=== PATIENT | male | born 1970 | race American Indian/Alaskan Native ===

== ENCOUNTER 2020-06-26 09:45 | Inpatient (IN) | payer OTHER ==
--- NOTE | 2020-06-26 10:20 | XRay Report ---
CHEST 2 VIEWS INDICATION / CLINICAL INFORMATION: SOB. COMPARISON: None available. FINDINGS: SUPPORT DEVICES: None. HEART / MEDIASTINUM: Mildly enlarged with normal pulmonary vascularity. LUNGS / PLEURA: No significant pulmonary or pleural abnormality. No pneumothorax. ADDITIONAL FINDINGS: No significant additional findings. IMPRESSION: 1. Cardiomegaly without CHF Signer Name: Grayson Quevedo MD Signed: 06/26/2020 10:15 AM Workstation Name: [id number]
[2020-06-26 12:05] LABS: Basophils % (Auto) 0.7 % (0.0-1.8); Eosinophils % (Auto) 0.3 % (0.0-4.3); Hematocrit 35.9 % (35.5-45.6); Hemoglobin 12.2 gm/dl (11.8-15.2); Lymphocytes % (Auto) 20.9 % (13.4-35.0); Mean Corpuscular HGB Conc 34 % (32-34); Mean Corpuscular Volume 86 fl (84-94); Monocytes # (Auto) 0.3 K/mm3 (0.0-0.8); Platelet Count 146 K/mm3 (140-440); Red Cell Distribution Width 14.1 % (13.2-15.2)
[2020-06-26 12:25] LABS: Albumin 3.9 g/dL (3.9-5)
[2020-06-26 12:37] LABS: Chol/HDL Ratio 2.36 %
--- NOTE | 2020-06-26 13:07 | Emergency Department Report ---
ED Shortness of Breath HPI - General Chief Complaint: Dyspnea/Respdistress Stated Complaint: SOB/UNABLE TO SLEEP Time Seen by Provider: 06/26/20 11:02 Source: patient Mode of arrival: Ambulatory Limitations: No Limitations - History of Present Illness Initial Comments: Patient is a 49-year-old male presents emergency room complaints of shortness of breath that significantly worsened last night. Patient states that when he laid down he felt like he was going to . He states that he has been feeling shortness of breath over the last couple of months but it became acutely worse last night. He has associated orthopnea. Patient states that he has not been able to sleep for the last 2 months secondary to the orthopnea. He denies any chest pain, nausea, vomiting, diarrhea, fever, cough, leg swelling. He states that he tested negative for COVID last week. He is a current smoker. He endorses alcohol use every other day. He denies any past medical history. He states he has not seen a primary care physician since 2010. He states that he has not had his blood pressure checked since approximately 2015. No allergies to medications. - Related Data Allergies Allergy/AdvReac Type Severity Reaction Status Date / Time No Known Allergies Allergy Unverified 06/26/20 09:55 ED Review of Systems ROS: Stated complaint: SOB/UNABLE TO SLEEP Other details as noted in HPI Comment: All other systems reviewed and negative ED Past Medical Hx - Past Medical History Previous Medical History?: No - Surgical History Past Surgical History?: No - Social History Smoking Status: Current Every Day Smoker ED Physical Exam - General Limitations: No Limitations General appearance: alert, in no apparent distress - Head Head exam: Present: atraumatic, normocephalic - Eye Eye exam: Present: normal appearance - ENT ENT exam: Present: mucous membranes moist - Respiratory Respiratory exam: Present: normal lung sounds bilaterally. Absent: respiratory distress, wheezes, rales, rhonchi, stridor, chest wall tenderness, accessory muscle use, decreased breath sounds, prolonged expiratory - Cardiovascular Cardiovascular Exam: Present: normal rhythm, tachycardia, normal heart sounds. Absent: systolic murmur, diastolic murmur, rubs, gallop - Neurological Exam Neurological exam: Present: alert, oriented X3 - Psychiatric Psychiatric exam: Present: normal affect, normal mood - Skin Skin exam: Present: warm, dry, intact ED Course Vital Signs 06/26/20 06/26/20 06/26/20 09:56 11:16 12:03 Temperature 97.5 F L Pulse Rate 104 H 108 H 83 Respiratory 18 16 Rate Blood Pressure 204/148 204/148 Blood Pressure 137/98 [Right] O2 Sat by Pulse 97 97 Oximetry - Consultations Consultation #1: 06/26/20 13:11 Spoke with hospitalist, she will call back 06/26/20 13:[address] Cary, hospitalist will accept and resume care of patient, advised to bridge patient to telemetry ED Medical Decision Making - Lab Data Result diagrams: 06/26/20 11:22 06/26/20 11:22 Lab Results 06/26/20 06/26/20 06/26/20 Range/Units 11:22 11:22 11:22 WBC 4.6 (4.5-11.0) K/mm3 RBC 4.20 (3.65-5.03) M/mm3 Hgb 12.2 (11.8-15.2) gm/dl Hct 35.9 (35.5-45.6) % MCV 86 (84-94) fl MCH 29 (28-32) pg MCHC 34 (32-34) % RDW 14.1 (13.2-15.2) % Plt Count 146 (140-440) K/mm3 Lymph % (Auto) 20.9 (13.4-35.0) % Graves % (Auto) 6.0 (0.0-7.3) % Eos % (Auto) 0.3 (0.0-4.3) % Baso % (Auto) 0.7 (0.0-1.8) % Lymph # 1.0 L (1.2-5.4) K/mm3 Graves # 0.3 (0.0-0.8) K/mm3 Eos # 0.0 (0.0-0.4) K/mm3 Baso # 0.0 (0.0-0.1) K/mm3 Seg Neutrophils % 72.1 H (40.0-70.0) % Seg Neutrophils # 3.3 (1.8-7.7) K/mm3 Sodium 142 (137-145) mmol/L Potassium 4.1 (3.6-5.0) mmol/L Chloride 101.5 (98-107) mmol/L Carbon Dioxide 25 (22-30) mmol/L Anion Gap 20 mmol/L BUN 24 H (9-20) mg/dL Creatinine 2.3 H (0.8-1.3) mg/dL Estimated GFR 37 ml/min BUN/Creatinine Ratio 10 % Glucose 105 H (75-100) mg/dL Calcium 9.0 (8.4-10.2) mg/dL Magnesium 2.30 (1.7-2.3) mg/dL Total Bilirubin 0.70 (0.1-1.2) mg/dL AST 41 H (5-40) units/L ALT 58 H (7-56) units/L Alkaline Phosphatase 73 (35-129) units/L Total Creatine Kinase 195 H (55-170) units/L Troponin T 0.035 H (0.00-0.029) ng/mL NT-Pro-B Natriuret Pep 7493 H (0-450) pg/mL Total Protein 6.5 (6.3-8.2) g/dL Albumin 3.9 (3.9-5) g/dL Albumin/Globulin Ratio 1.5 % Triglycerides 88 (2-149) mg/dL Cholesterol 90 (50-199) mg/dL LDL Cholesterol Direct 44 L (50-130) mg/dL HDL Cholesterol 38 L (40-59) mg/dL Cholesterol/HDL Ratio 2.36 % 08/29/20 Range/Units 13:31 WBC (4.5-11.0) K/mm3 RBC (3.65-5.03) M/mm3 Hgb (11.8-15.2) gm/dl Hct (35.5-45.6) % MCV (84-94) fl MCH (28-32) pg MCHC (32-34) % RDW (13.2-15.2) % Plt Count (140-440) K/mm3 Lymph % (Auto) (13.4-35.0) % Graves % (Auto) (0.0-7.3) % Eos % (Auto) (0.0-4.3) % Baso % (Auto) (0.0-1.8) % Lymph # (1.2-5.4) K/mm3 Graves # (0.0-0.8) K/mm3 Eos # (0.0-0.4) K/mm3 Baso # (0.0-0.1) K/mm3 Seg Neutrophils % (40.0-70.0) % Seg Neutrophils # (1.8-7.7) K/mm3 Sodium (137-145) mmol/L Potassium (3.6-5.0) mmol/L Chloride (98-107) mmol/L Carbon Dioxide (22-30) mmol/L Anion Gap mmol/L BUN (9-20) mg/dL Creatinine (0.8-1.3) mg/dL Estimated GFR ml/min BUN/Creatinine Ratio % Glucose (75-100) mg/dL Calcium (8.4-10.2) mg/dL Magnesium (1.7-2.3) mg/dL Total Bilirubin (0.1-1.2) mg/dL AST (5-40) units/L ALT (7-56) units/L Alkaline Phosphatase (35-129) units/L Total Creatine Kinase (55-170) units/L Troponin T 0.035 H (0.00-0.029) ng/mL NT-Pro-B Natriuret Pep (0-450) pg/mL Total Protein (6.3-8.2) g/dL Albumin (3.9-5) g/dL Albumin/Globulin Ratio % Triglycerides (2-149) mg/dL Cholesterol (50-199) mg/dL LDL Cholesterol Direct (50-130) mg/dL HDL Cholesterol (40-59) mg/dL Cholesterol/HDL Ratio % - EKG Data EKG shows normal: sinus rhythm, axis, intervals Rate: tachycardia - EKG Data 06/26/20 13:09 LAE LVH no STEMI - Radiology Data Radiology results: report reviewed CHEST 2 VIEWS INDICATION / CLINICAL INFORMATION: SOB. COMPARISON: None available. FINDINGS: SUPPORT DEVICES: None. HEART / MEDIASTINUM: Mildly enlarged with normal pulmonary vascularity. LUNGS / PLEURA: No significant pulmonary or pleural abnormality. No pneumothorax. ADDITIONAL FINDINGS: No significant additional findings. IMPRESSION: 1. Cardiomegaly without CHF Signer Name: Grayson Quevedo MD Signed: 06/26/2020 10:15 AM Workstation Name: [id number] Transcribed By: TL Dictated By: Grayson Quevedo MD Electronically Authenticated By: Grayson Quevedo MD Signed Date/Time: 06/26/20 101 DD/ 1015 TD/TT: - Medical Decision Making Patient is a 49-year-old male presents emergency room complaints of shortness of breath that significantly worsened last night. Patient states that when he laid down he felt like he was going to . He states that he has been feeling shortness of breath over the last couple of months but it became acutely worse last night. He has associated orthopnea. Patient states that he has not been able to sleep for the last 2 months secondary to the orthopnea. He denies any chest pain, nausea, vomiting, diarrhea, fever, cough, leg swelling. He states that he tested negative for COVID last week. He is a current smoker. He endorses alcohol use every other day. He denies any past medical history. He states he has not seen a primary care physician since 2010. He states that he has not had his blood pressure checked since approximately 2015. No allergies to medications. Vitals with tachycardia and significantly elevated blood pressure. Patient given labetalol and blood pressure improved. EKG shows LVH, no STEMI. CXR: 1. Cardiomegaly without CHF. Labs show signs of renal disease, elevated BNP, elevated troponin. Difficult to state if renal function is chronic as patient has no previous visits, could be BECCA on CKD. Elevation in troponin likely due to NSTEMI type II from demand likely secondary to heart failure and renal disease. Patient will be admitted to hospitalist service for BECCA, new onset CHF, hypertensive urgency. Case discussed with Dr. Olivier, ER attending who agrees with plan. Spoke to Dr. Cary, hospitalist will accept and resume care of patient, advised to bridge patient to telemetry - Differential Diagnosis ACS, CHF, pleural effusion, pericarditis, renal dysfunction, HTN urgency Critical care attestation.: If time is entered above; I have spent that time in minutes in the direct care of this critically ill patient, excluding procedure time. ED Disposition Clinical Impression: SOB (shortness of breath), Orthopnea, Hypertensive urgency, BECCA (acute kidney injury), New onset of congestive heart failure, Elevated troponin Disposition: OP ADMIT IP TO THIS HOSP Is pt being admited?: Yes Does the pt Need Aspirin: No Condition: Serious Time of Disposition: 13:07
[2020-06-26] MEDS ORDERED: NITROGLYCERIN 0.4 MG TAB SUBL SL PRN (14:04)
--- NOTE | 2020-06-26 14:15 | History and Physical Report ---
History of Present Illness Date of examination: 06/26/20 Date of admission: 06/26/20 Chief complaint: SOB History of present illness: Patient is a 49-year-old male with a history of hypertension but not on any home medications, tobacco and alcohol abuse and no other prior medical history presents emergency room complaints of Progressive shortness of breath for last 2 months that significantly worsened since last night. Patient states that when he laid down he felt like he was going to . He has associated orthopnea. Patient states that he has not been able to sleep for the last 2 months secondary to the orthopnea. He denies any chest pain, nausea, vomiting, diarrhea, fever, cough, leg swelling. He states that he tested negative for COVID last week Sunday. He states he has not seen a primary care physician since 2010. In the ER patient blood pressure noted to be 204/148. He also noted to have elevated BNP, elevated troponin and elevated creatinine. He was given p.o. labetalol 200 mg one-time dose, chest x-ray in the ER showed cardiomegaly without any pulmonary edema. Patient now called for admission for further evaluation and management - Past Medical History: Uncontrolled hypertension - Surgical History Past Surgical History?: No - Social History Smoking Status: Current Every Day Smoker. Patient also endorses alcohol abuse every other day, he also takes marijuana frequently. -family history: Hypertension Review of System: Constitutional: no fever, no chills, no weight loss Ears, eyes, nose, mouth and throat: no nasal congestion, no nasal discharge, no sinus pressure, no vision change, no red eye. Neck: No neck pain or rigidity. Cardiovascular: No chest pain, + orthopnea, no palpitations, no leg swelling Respiratory: + shortness of breath, no cough, no congestion, no wheezing Gastrointestinal: no abdominal pain, no nausea, no vomiting Genitourinary : no dysuria, no hematuria Musculoskeletal: no joint swelling or muscle ache Integumentary: no rash, no pruritis Neurological: no parathesias, no numbness, no tingling Endocrine: no cold or heat intolerance, no polyuria or polydipsia Hematologic/Lymphatic: no easy bruising, no easy bleeding, no gland swelling Allergic/Immunologic: no urticaria, no angioedema. Medications and Allergies Allergies Allergy/AdvReac Type Severity Reaction Status Date / Time No Known Allergies Allergy Unverified 08/29/20 09:55 Home Medications Medication Instructions Recorded Confirmed Last Taken Type No Known Home Medications [No 06/26/20 06/26/20 Unknown History Reported Home Medications] Active Meds: Active Medications Aspirin (Aspirin) 325 mg PO QDAY [facility] Carvedilol (Coreg) 6.25 mg PO BID [facility] Furosemide (Lasix) 40 mg IV 0600,1800 [facility] Heparin Sodium (Porcine) (Heparin) 5,000 unit SUB-Q Q12HR [facility] Nitroglycerin (Nitrostat) 0.4 mg SL .Q5MIN PRN PRN Reason: Chest Pain Exam - Physical Exam Narrative exam: - General Limitations: No Limitations General appearance: alert, in no apparent distress - Head Head exam: Present: atraumatic, normocephalic - Eye Eye exam: Present: normal appearance - ENT ENT exam: Present: mucous membranes moist - Respiratory Respiratory exam: Present: normal lung sounds bilaterally. Absent: respiratory distress, wheezes, rales, rhonchi, stridor, chest wall tenderness, accessory muscle use, decreased breath sounds, prolonged expiratory - Cardiovascular Cardiovascular Exam: Present: normal rhythm, tachycardia, normal heart sounds. Absent: systolic murmur, diastolic murmur, rubs, gallop - Neurological Exam Neurological exam: Present: alert, oriented X3 - Psychiatric Psychiatric exam: Present: normal affect, normal mood - Skin Skin exam: Present: warm, dry, intact - Constitutional Vitals: Temp Pulse Resp BP Pulse Ox 97.5 F L 83 16 137/98 97 06/26/20 09:56 06/26/20 12:03 06/26/20 12:03 06/26/20 12:03 06/26/20 12:03 HEART Score - HEART Score Troponin: Troponin T 0.035 ng/mL (0.00-0.029) H 06/26/20 11:22 Results - Labs CBC & Chem 7: 06/26/20 11:22 06/26/20 11:22 Labs: Abnormal lab results 06/26/20 06/26/20 06/26/20 Range/Units 11:22 11:22 11:22 Lymph # 1.0 L (1.2-5.4) K/mm3 Seg Neutrophils % 72.1 H (40.0-70.0) % BUN 24 H (9-20) mg/dL Creatinine 2.3 H (0.8-1.3) mg/dL Glucose 105 H (75-100) mg/dL AST 41 H (5-40) units/L ALT 58 H (7-56) units/L Total Creatine Kinase 195 H (55-170) units/L Troponin T 0.035 H (0.00-0.029) ng/mL NT-Pro-B Natriuret Pep 7493 H (0-450) pg/mL LDL Cholesterol Direct 44 L (50-130) mg/dL HDL Cholesterol 38 L (40-59) mg/dL - Imaging and Cardiology Chest x-ray: report reviewed Assessment and Plan Malignant hypertension -BP was 204 x 148 on admission -We will place on beta-francie, calcium channel francie and diuretics -We will also give as needed IV hydralazine to keep SBP less than 160 Possible new onset CHF -Patient noted to have elevated BNP and cardiomegaly on chest x-ray -We will continue Lasix 20 mg IV twice a day -We will monitor ins and O's, daily weight -Obtain 2D echo, cardiology consult Noncompliance, counseled for medication and dietary compliance Tobacco abuse, counseled to quit BECCA, cannot rule out underlying CKD -Baseline creatinine is unknown, -We will monitor renal function with daily BMP -We will get renal ultrasound, consider consulting nephrology if creatinine continue to get worse Elevated troponin/NSTEMI type II -Likely due to CHF exacerbation and underlying BECCA on CKD -Continue to monitor troponin, consult cardiology, continue aspirin and statin -Obtain 2D echo Elevated LFT, likely due to hepatic congestion -We will continue to monitor DVT prophylaxis, heparin
[2020-06-26] MEDS: FUROSEMIDE 20 MG/2 ML INJ IV SCH (17:13)
[2020-06-26] MEDS ORDERED: FUROSEMIDE 40 MG/4 ML INJ IV SCH (18:00)
--- NOTE | 2020-06-26 18:47 | Ultrasound Report ---
ULTRASOUND RENAL INDICATION / CLINICAL INFORMATION: possible ckd. COMPARISON: None available. FINDINGS: RIGHT KIDNEY: Length = 10.1 x 4.6 x 5.0 cm. - Echogenicity: Minimally hyperechoic with loss of cortical medullary differentiation. - Cortical Thickness: Normal. - Hydronephrosis: None. - Cyst or mass: No significant abnormality. - Stones: None seen. LEFT KIDNEY: Length = 8.9 x 4.5 x 5.2 cm. - Echogenicity: Minimally hyperechoic with loss of cortical medullary differentiation. - Cortical Thickness: Normal. - Hydronephrosis: None. - Cyst or mass: No significant abnormality. - Stones: None seen. URINARY BLADDER: No significant abnormality. FREE FLUID: None. ADDITIONAL FINDINGS: Bilateral pleural effusions are appreciated. IMPRESSION: 1. Findings consistent with medical renal disease. 2. No evidence of calcified stones or hydronephrosis. 3. Bilateral pleural effusions. Signer Name: Elmo Cisneros MD Signed: 06/26/2020 6:42 PM Workstation Name: [id number]
[2020-06-26] MEDS: carvediloL 6.25 MG TAB PO SCH (21:16)
[2020-06-26] MEDS: amLODIPine 10 MG TAB PO SCH (21:16)
[2020-06-26] MEDS: HEPARIN 5,000 UNIT/1 ML VIAL SUB-Q SCH (21:18)
[2020-06-27] MEDS ORDERED: cloNIDine 0.1 MG TAB PO ONE (00:20)
[2020-06-27] MEDS: FUROSEMIDE 20 MG/2 ML INJ IV SCH (05:28)
[2020-06-27 07:01] LABS: Alanine Aminotransferase 54 units/L (7-56); Albumin 3.5 g/dL (3.9-5); BUN/Creatinine Ratio 10; Blood Urea Nitrogen 24 mg/dL (9-20); Calcium 8.3 mg/dL (8.4-10.2); Hemolysis Index 4
[2020-06-27 07:02] LABS: Bilirubin,Direct < 0.2 mg/dL (0-0.2)
[2020-06-27] MEDS: carvediloL 6.25 MG TAB PO SCH ×2 (10:15→21:10)
[2020-06-27] MEDS: ASPIRIN 325 MG TAB PO SCH (10:15)
[2020-06-27] MEDS: amLODIPine 10 MG TAB PO SCH (10:16)
[2020-06-27] MEDS: HEPARIN 5,000 UNIT/1 ML VIAL SUB-Q SCH ×2 (10:16→21:11)
--- NOTE | 2020-06-27 11:11 | Consultation ---
History of Present Illness Consult date: 06/27/20 Consult reason: congestive heart failure History of present illness: Impression Acute symptoms suggestive of CHF, primarily Dyspnea, Orthopnea, both now improved. Echocardiogram pending to exclude CMP History of uncontrolled HTN and noncompliance with medications due to their side effects (such as ED) Active smoker Active ETOH use. Plan He looks well after IV diuretics, Transition to PO meds Optimize BP Echo in AM Ischemic w/u as outpt, dyspnea likely HTN related Smoking and ETOH cessation would help Past History Past Medical History: hypertension Past Surgical History: No surgical history Social history: smoking, alcohol abuse Family history: hypertension Medications and Allergies Allergies Allergy/AdvReac Type Severity Reaction Status Date / Time No Known Allergies Allergy Unverified 06/26/20 09:55 Home Medications Medication Instructions Recorded Confirmed Last Taken Type No Known Home Medications [No 06/26/20 06/26/20 Unknown History Reported Home Medications] Active Meds: Active Medications Amlodipine Besylate (Amlodipine) 10 mg PO QDAY [facility] Last Admin: 06/27/20 10:16 Dose: 10 mg Documented by: Aspirin (Aspirin) 325 mg PO QDAY [facility] Last Admin: 06/27/20 10:15 Dose: 325 mg Documented by: Atorvastatin Calcium (Lipitor) 40 mg PO QHS [facility] Last Admin: 06/26/20 21:16 Dose: 40 mg Documented by: Carvedilol (Coreg) 6.25 mg PO BID [facility] Last Admin: 06/27/20 10:15 Dose: 6.25 mg Documented by: Furosemide (Lasix) 40 mg PO 0600,1800 [facility] Heparin Sodium (Porcine) (Heparin) 5,000 unit SUB-Q Q12HR [facility] Last Admin: 06/27/20 10:16 Dose: 5,000 unit Documented by: Isosorbide Dinitrate/Hydralazine (Bidil 20/37.5mg) 1 each PO Q12HR [facility] Nitroglycerin (Nitrostat) 0.4 mg SL .Q5MIN PRN PRN Reason: Chest Pain Potassium Chloride (K-Dur) 40 meq PO Q12HR [facility] Stop: 06/28/20 22:01 Review of Systems All systems: negative (stated in impression) Physical Examination Vital Signs Temp Pulse Resp BP Pulse Ox 97.5 F L 104 H 18 204/148 97 06/26/20 09:56 06/26/20 09:56 06/26/20 09:56 06/26/20 09:56 06/26/20 09:56 General appearance: no acute distress HEENT: Positive: PERRL Neck: Positive: neck supple Cardiac: Positive: Reg Rate and Rhythm, S1/S2, S4 Lungs: Positive: Normal Exam Neuro: Positive: Grossly Intact Abdomen: Positive: Soft. Negative: Pulsations/Bruits Extremities: Absent: edema Results 06/26/20 11:22 06/27/20 05:39 Cardiac Enzymes 06/26/20 06/27/20 Range/Units 11:22 05:39 AST 41 H 32 (5-40) units/L Lipids 06/26/20 Range/Units 11:22 Triglycerides 88 (2-149) mg/dL Cholesterol 90 (50-199) mg/dL HDL Cholesterol 38 L (40-59) mg/dL Cholesterol/HDL Ratio 2.36 % CBC 06/26/20 Range/Units 11:22 WBC 4.6 (4.5-11.0) K/mm3 RBC 4.20 (3.65-5.03) M/mm3 Hgb 12.2 (11.8-15.2) gm/dl Hct 35.9 (35.5-45.6) % Plt Count 146 (140-440) K/mm3 Lymph # 1.0 L (1.2-5.4) K/mm3 Lipscomb # 0.3 (0.0-0.8) K/mm3 Eos # 0.0 (0.0-0.4) K/mm3 Baso # 0.0 (0.0-0.1) K/mm3 Comprehensive Metabolic Panel 06/26/20 06/27/20 Range/Units 11:22 05:39 Sodium 142 141 (137-145) mmol/L Potassium 4.1 3.2 L D (3.6-5.0) mmol/L Chloride 101.5 98.6 (98-107) mmol/L Carbon Dioxide 25 28 (22-30) mmol/L BUN 24 H 24 H (9-20) mg/dL Creatinine 2.3 H 2.4 H (0.8-1.3) mg/dL Glucose 105 H 149 H (75-100) mg/dL Calcium 9.0 8.3 L (8.4-10.2) mg/dL Direct Bilirubin < 0.2 (0-0.2) mg/dL Indirect Bilirubin 0.3 mg/dL AST 41 H 32 (5-40) units/L ALT 58 H 54 (7-56) units/L Alkaline Phosphatase 73 66 (35-129) units/L Total Protein 6.5 6.5 (6.3-8.2) g/dL Albumin 3.9 3.5 L (3.9-5) g/dL
[2020-06-27] MEDS: ISOSORB DINIT/HYDRALAZINE 20-37.5MG TAB PO SCH ×2 (12:28→21:09)
[2020-06-27] MEDS: POTASSIUM CHLORIDE ER 20 MEQ TAB PO SCH ×2 (12:28→21:09)
[2020-06-27] MEDS: FUROSEMIDE 40 MG TAB PO SCH (17:29)
--- NOTE | 2020-06-27 18:02 | Progress Note ---
Assessment and Plan - Patient Problems (1) New onset of congestive heart failure Current Visit: Yes Status: Acute Plan to address problem: Systolic CHF: Strict I's/O, monitor urine output every shift, daily weight, afterload reduction, echocardiogram is pending. (2) Noncompliance with medication regimen Current Visit: Yes Status: Acute Plan to address problem: Patient counseled regarding medication noncompliance. Patient knowledges understanding and agreement with care plan. Patient states that he will be compliant with his medication regimen in the future. Patient also reports that he will comply and follow-up with primary care physician on outpatient basis. (3) BECCA (acute kidney injury) Current Visit: Yes Status: Acute Plan to address problem: Strict I's/O, monitor urine output every shift, follow-up PCP within 1 week with repeat BMP. (4) Hypertensive urgency Current Visit: Yes Status: Acute Plan to address problem: Monitor blood pressure every shift, continue medical management. (5) DVT prophylaxis Current Visit: Yes Status: Acute Plan to address problem: SCD to bilateral lower extremities while in bed, patient is ambulatory. History Interval history: 49 YO Male HD #2 with CHF, Medication Noncompliance, Nicotine Dependence, ETOH Dependence. Patient states that he feels somewhat better today. Patient denies fever, chills, chest pain, palpitations, productive cough. Patient states that his shortness of breath is improved. No reported nursing events overnight. Patient is pending echocardiogram in a.m. Discharge planning in a.m. Hospitalist Physical - Constitutional Vitals: Temp Pulse Resp BP Pulse Ox 98.3 F 82 20 157/113 97 06/27/20 16:06 06/27/20 16:06 06/27/20 16:06 06/27/20 16:06 06/27/20 16:06 General appearance: Present: no acute distress - EENT Eyes: Present: PERRL, EOM intact - Neck Neck: Present: supple - Respiratory Respiratory: bilateral: CTA - Cardiovascular Rhythm: regular Heart Sounds: Present: S1 & S2 - Extremities Extremities: no ischemia Peripheral Pulses: within normal limits - Abdominal General gastrointestinal: soft, non-tender, non-distended - Integumentary Integumentary: Present: clear, dry - Psychiatric Psychiatric: appropriate mood/affect, cooperative - Neurologic Neurologic: CNII-XII intact HEART Score - HEART Score Troponin: Troponin T 0.043 ng/mL (0.00-0.029) H 06/27/20 05:39 Results - Labs CBC & Chem 7: 06/26/20 11:22 06/27/20 05:39 Labs: Laboratory Last Values WBC 4.6 K/mm3 (4.5-11.0) 06/26/20 11:22 RBC 4.20 M/mm3 (3.65-5.03) 06/26/20 11:22 Hgb 12.2 gm/dl (11.8-15.2) 06/26/20 11:22 Hct 35.9 % (35.5-45.6) 06/26/20 11:22 MCV 86 fl (84-94) 06/26/20 11:22 MCH 29 pg (28-32) 06/26/20 11:22 MCHC 34 % (32-34) 06/26/20 11:22 RDW 14.1 % (13.2-15.2) 06/26/20 11:22 Plt Count 146 K/mm3 (140-440) 06/26/20 11:22 Lymph % (Auto) 20.9 % (13.4-35.0) 06/26/20 11:22 [place] % (Auto) 6.0 % (0.0-7.3) 06/26/20 11:22 Eos % (Auto) 0.3 % (0.0-4.3) 06/26/20 11:22 Baso % (Auto) 0.7 % (0.0-1.8) 06/26/20 11:22 Lymph # 1.0 K/mm3 (1.2-5.4) L 06/26/20 11:22 [place]ook[place] # 0.3 K/mm3 (0.0-0.8) 06/26/20 11:22 Eos # 0.0 K/mm3 (0.0-0.4) 06/26/20 11:22 Baso # 0.0 K/mm3 (0.0-0.1) 06/26/20 11:22 Seg Neutrophils % 72.1 % (40.0-70.0) H 06/26/20 11:22 Seg Neutrophils # 3.3 K/mm3 (1.8-7.7) 06/26/20 11:22 Sodium 141 mmol/L (137-145) 06/27/20 05:39 Potassium 3.2 mmol/L (3.6-5.0) L D 06/27/20 05:39 Chloride 98.6 mmol/L (98-107) 06/27/20 05:39 Carbon Dioxide 28 mmol/L (22-30) 06/27/20 05:39 Anion Gap 18 mmol/L 06/27/20 05:39 BUN 24 mg/dL (9-20) H 06/27/20 05:39 Creatinine 2.4 mg/dL (0.8-1.3) H 06/27/20 05:39 Estimated GFR 35 ml/min 06/27/20 05:39 BUN/Creatinine Ratio 10 % 06/27/20 05:39 Glucose 149 mg/dL (75-100) H 06/27/20 05:39 Calcium 8.3 mg/dL (8.4-10.2) L 06/27/20 05:39 Magnesium 2.30 mg/dL (1.7-2.3) 06/26/20 11:22 Total Bilirubin 0.50 mg/dL (0.1-1.2) 06/27/20 05:39 Direct Bilirubin < 0.2 mg/dL (0-0.2) 06/27/20 05:39 Indirect Bilirubin 0.3 mg/dL 06/27/20 05:39 AST 32 units/L (5-40) 06/27/20 05:39 ALT 54 units/L (7-56) 06/27/20 05:39 Alkaline Phosphatase 66 units/L (35-129) 06/27/20 05:39 Total Creatine Kinase 195 units/L (55-170) H 06/26/20 11:22 Troponin T 0.043 ng/mL (0.00-0.029) H 06/27/20 05:39 NT-Pro-B Natriuret Pep 7493 pg/mL (0-450) H 06/26/20 11:22 Total Protein 6.5 g/dL (6.3-8.2) 06/27/20 05:39 Albumin 3.5 g/dL (3.9-5) L 06/27/20 05:39 Albumin/Globulin Ratio 1.2 % 06/27/20 05:39 Triglycerides 88 mg/dL (2-149) 06/26/20 11:22 Cholesterol 90 mg/dL (50-199) 06/26/20 11:22 LDL Cholesterol Direct 44 mg/dL (50-130) L 06/26/20 11:22 HDL Cholesterol 38 mg/dL (40-59) L 06/26/20 11:22 Cholesterol/HDL Ratio 2.36 % 06/26/20 11:22 Hoskins/IV: Voiding Method Urinal IV Catheter Type [Left Hand] INT / Saline Lock Active Medications - Current Medications Current Medications: Generic Name Dose Route Start Last Admin Trade Name Freq PRN Reason Stop Dose Admin Amlodipine Besylate 10 mg 06/26/20 21:00 06/27/20 10:16 Amlodipine PO 10 mg QDAY NUHA Administration Aspirin 325 mg 06/27/20 10:00 06/27/20 10:15 Aspirin PO 325 mg QDAY NUHA Administration Atorvastatin Calcium 40 mg 06/26/20 22:00 06/26/20 21:16 Lipitor PO 40 mg QHS NUHA Administration Carvedilol 6.25 mg 06/26/20 22:00 06/27/20 10:15 Coreg PO 6.25 mg BID NUHA Administration Furosemide 40 mg 06/27/20 18:00 06/27/20 17:29 Lasix PO 40 mg 0600,1800 NUHA Administration Heparin Sodium (Porcine) 5,000 unit 06/26/20 22:00 06/27/20 10:16 Heparin SUB-Q 5,000 unit Q12HR NUHA Administration Isosorbide Dinitrate/Hydralazine 1 each 06/27/20 12:00 06/27/20 12:28 Bidil 20/37.5mg PO 1 each Q12HR NUHA Administration Nitroglycerin 0.4 mg 06/26/20 14:04 Nitrostat SL .Q5MIN PRN Chest Pain Potassium Chloride 40 meq 06/27/20 12:00 06/27/20 12:28 K-Dur PO 06/28/20 22:01 40 meq Q12HR NUHA Administration Nutrition/Malnutrition Assess - Dietary Evaluation Nutrition/Malnutrition Findings: Nutrition Notes Start: 06/27/20 10:31 Freq: Status: Active Protocol: Document 06/27/20 10:31 LP (Rec: 06/27/20 10:34 LP [email or web address]) Nutrition Notes 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 Unable to see pt at time of visit. Nutrition Intervention Follow-Up By: 06/29/20 Additional Comments Follow for assessment needs
[2020-06-28] MEDS: FUROSEMIDE 40 MG TAB PO SCH ×2 (05:13→13:27)
[2020-06-28] MEDS: ISOSORB DINIT/HYDRALAZINE 20-37.5MG TAB PO SCH (09:14)
[2020-06-28] MEDS: carvediloL 6.25 MG TAB PO SCH (09:14)
[2020-06-28] MEDS: amLODIPine 10 MG TAB PO SCH (09:14)
[2020-06-28] MEDS: ASPIRIN 325 MG TAB PO SCH (09:14)
[2020-06-28] MEDS: HEPARIN 5,000 UNIT/1 ML VIAL SUB-Q SCH ×2 (09:15→21:55)
[2020-06-28] MEDS: POTASSIUM CHLORIDE ER 20 MEQ TAB PO SCH ×2 (09:15→21:39)
--- NOTE | 2020-06-28 11:13 | Discharge Summary ---
Providers - Providers Date of Admission: 06/26/20 14:13 Attending physician: CAPO LEIGH 06/26/20 14:04 Consult to Physician [CONS] Routine Comment: Consulting Provider: BRITTANY ZARATE Physician Instructions: Reason For Exam: chf Primary care physician: PERSONAL CARE ASSISTANT Hospitalization Condition: Serious - Discharge Diagnoses (1) New onset of congestive heart failure Status: Acute (2) Noncompliance with medication regimen Status: Acute (3) BECCA (acute kidney injury) Status: Acute (4) Hypertensive urgency Status: Acute (5) DVT prophylaxis Status: Acute Exam - Constitutional Vitals: Temp Pulse Resp BP Pulse Ox 98.0 F 94 H 18 178/134 97 06/28/20 05:11 06/28/20 09:14 06/28/20 08:29 06/28/20 09:14 06/28/20 05:11 Plan Follow up with: PRIMARY CARE, [Primary Care Provider] - 3-5 Days Prescriptions: amLODIPine 10 mg PO QDAY #30 tablet Aspirin 325 mg PO QDAY #30 tablet Isosorb Dinit/Hydralazine [Bidil 20/37.5MG] 1 each PO Q12HR #60 tablet carvediloL [Coreg] 6.25 mg PO BID #60 tablet Potassium Chloride [K-Dur] 40 meq PO Q12HR #60 tablet Furosemide [Lasix TAB] 40 mg PO 0600,1800 #60 tablet AtorvaSTATin [Lipitor] 40 mg PO QHS #30 tablet
--- NOTE | 2020-06-28 11:53 | Progress Note ---
Assessment and Plan - Patient Problems (1) Uncontrolled hypertension Current Visit: Yes Status: Acute Plan to address problem: Patient has a long history of hypertension dating back 10 years, for which he did not take medications, we will aggressively treat and control blood pressure elevation. (2) Left ventricular systolic dysfunction Current Visit: Yes Status: Acute Plan to address problem: Patient's left ventricular systolic dysfunction associated with moderate to severe concentric hypertrophy appears likely consequence of his chronic uncontrolled hypertension. We will optimize guideline directed medical therapy as tolerated. Due to chronic kidney disease with a creatinine of 2.4, he will not be a candidate for an KRISTINE inhibitor or ARB. (3) Fever Current Visit: Yes Status: Acute Plan to address problem: This patient has had a fever up to 103 on this presentation. The fever was recorded on June 27. With his presentation with shortness of breath in the absence of significant pulmonary edema, and considering the ongoing pandemic, it would be prudent to check this patient for COVID-19 infection. Subjective Date of service: 06/28/20 Interval history: The patient is a 49-year-old man who presented to the hospital with primary complaints of shortness of breath for several weeks. Chest x-ray on this presentation revealed cardiomegaly with clear lungs, no infiltrates and no edema. Most notable clinical finding on presentation was severe and persistent hypertension, with systolic blood pressures of over 200 on presentation, still currently 170s to 180s. Laboratory exam showed chronic kidney disease with a creatinine of 2.4. The patient has admittedly not seen a physician in about 10 years. He said that in 2010 he was diagnosed with hypertension, and given prescriptions but never followed up and never took any further medications after his initial supply ran out. He has also not checked his blood pressure until his current presentation 10 years later. Echocardiogram done today shows a mildly dilated left ventricle with moderate to severe concentric left ventricle hypertrophy, and severe left ventricular systolic dysfunction with ejection fraction 20 to 25%. Also of note is my review of the patient's vital signs over the last 48 hours during this admission shows that he had a fever of 100.6F on 06/26, which rome to 103F on 06/27. Objective Vital Signs Temp Pulse Resp BP BP Pulse Ox 06/28/20 09:14 94 H 178/134 06/28/20 08:29 18 06/28/20 05:45 86 06/28/20 05:11 98.0 F 86 18 143/103 97 06/27/20 23:27 98.3 F 92 H 20 147/94 93 06/27/20 22:20 28 L 06/27/20 21:41 88 06/27/20 21:10 91 H 152/108 06/27/20 21:09 91 H 152/108 06/27/20 20:04 99.3 F 91 H 20 152/108 98 06/27/20 16:06 98.3 F 82 20 157/113 97 06/27/20 12:14 98.3 F 85 20 149/116 100 - Physical Examination General: No Apparent Distress HEENT: Positive: PERRL Neck: Positive: neck supple Cardiac: Positive: Reg Rate and Rhythm Lungs: Positive: Decreased Breath Sounds Neuro: Positive: Grossly Intact Abdomen: Positive: Soft. Negative: Pulsations/Bruits Skin: Positive: Clear Extremities: Absent: edema
--- NOTE | 2020-06-28 11:58 | Event Note ---
Date: 06/28/20 This patient has had a fever up to 103 on this presentation. The fever was recorded on June 27. With his presentation with shortness of breath in the absence of significant pulmonary edema, and considering the ongoing pandemic, it would be prudent to check this patient for COVID-19 infection.
--- NOTE | 2020-06-28 12:52 | Event Note ---
Error in vital sign recordin hrs: Temperature 98.3 pulse 81 respirations 18 pulse oximetry 95% on room air blood pressure 110/65. Erroneous entry approximately 6 minutes later at 0453hrs: Temperature of 103.1 pulse 109 respirations 18 pulse oximetry 100% on room air blood pressure 174/103
[2020-06-28] MEDS: NIFEdipine XL 60 MG TAB PO SCH (13:25)
[2020-06-28] MEDS: SPIRONOLACTONE 25 MG TAB PO SCH (13:27)
--- NOTE | 2020-06-28 13:42 | Event Note ---
Date: 06/28/20 Called by nursing staff that patient had 25-beat NSVT reported n telemetry. I will switch carvedilol to metoprolol, recommend check potassium and mag levels. He will need Lifevest monitoring prior to discharge in the setting of severe LV dysfunction. I have recommended that he also needs his fever worked up with regards to possible COVID.
[2020-06-28] MEDS: METOPROLOL TARTRATE 50 MG TAB PO SCH (16:29)
--- NOTE | 2020-06-28 19:54 | Progress Note ---
Assessment and Plan - Patient Problems (1) New onset of congestive heart failure Current Visit: Yes Status: Acute Plan to address problem: Systolic CHF: Strict I's/O, monitor urine output every shift, daily weight, afterload reduction, echocardiogram reveals ejection fraction of 25%. Cardiology team planning LifeVest placement. (2) Noncompliance with medication regimen Current Visit: Yes Status: Acute Plan to address problem: Patient counseled regarding medication noncompliance. Patient knowledges understanding and agreement with care plan. Patient states that he will be compliant with his medication regimen in the future. Patient also reports that he will comply and follow-up with primary care physician on outpatient basis. (3) BECCA (acute kidney injury) Current Visit: Yes Status: Acute Plan to address problem: Strict I's/O, monitor urine output every shift, follow-up PCP within 1 week with repeat BMP. (4) Hypertensive urgency Current Visit: Yes Status: Acute Plan to address problem: Monitor blood pressure every shift, continue medical management. (5) DVT prophylaxis Current Visit: Yes Status: Acute Plan to address problem: SCD to bilateral lower extremities while in bed, patient is ambulatory. History Interval history: 49 YO Male HD #3 with Systolic CHF(EF 25%), Medication Noncompliance, Nicotine Dependence, ETOH Dependence. Patient states that he feels better today. Patient denies fever, chills, chest pain, palpitations, productive cough. Patient states that his shortness of breath is improved. Nursing staff report 26 beat run of V. tach. Cardiology team notified and will place LifeVest prior to discharge. Hospitalist Physical - Constitutional Vitals: Temp Pulse Resp BP Pulse Ox 99.4 F 76 14 91/58 93 06/28/20 19:20 06/28/20 19:20 06/28/20 19:20 06/28/20 19:20 06/28/20 19:20 General appearance: Present: no acute distress - EENT Eyes: Present: PERRL ENT: hearing intact - Neck Neck: Present: supple - Respiratory Respiratory effort: normal Respiratory: bilateral: CTA - Cardiovascular Rhythm: regular Heart Sounds: Present: S1 & S2 - Extremities Extremity abnormal: edema - Abdominal General gastrointestinal: soft, non-tender, non-distended - Integumentary Integumentary: Present: clear, dry - Psychiatric Psychiatric: appropriate mood/affect, cooperative - Neurologic Neurologic: CNII-XII intact HEART Score - HEART Score Troponin: Troponin T 0.031 ng/mL (0.00-0.029) H D 06/28/20 07:14 Results - Labs CBC & Chem 7: 06/26/20 11:22 06/27/20 05:39 Labs: Laboratory Last Values WBC 4.6 K/mm3 (4.5-11.0) 06/26/20 11:22 RBC 4.20 M/mm3 (3.65-5.03) 06/26/20 11:22 Hgb 12.2 gm/dl (11.8-15.2) 06/26/20 11:22 Hct 35.9 % (35.5-45.6) 06/26/20 11:22 MCV 86 fl (84-94) 06/26/20 11:22 MCH 29 pg (28-32) 06/26/20 11:22 MCHC 34 % (32-34) 06/26/20 11:22 RDW 14.1 % (13.2-15.2) 06/26/20 11:22 Plt Count 146 K/mm3 (140-440) 06/26/20 11:22 Lymph % (Auto) 20.9 % (13.4-35.0) 06/26/20 11:22 [place] % (Auto) 6.0 % (0.0-7.3) 06/26/20 11:22 Eos % (Auto) 0.3 % (0.0-4.3) 06/26/20 11:22 Baso % (Auto) 0.7 % (0.0-1.8) 06/26/20 11:22 Lymph # 1.0 K/mm3 (1.2-5.4) L 06/26/20 11:22 [place] # 0.3 K/mm3 (0.0-0.8) 06/26/20 11:22 Eos # 0.0 K/mm3 (0.0-0.4) 06/26/20 11:22 Baso # 0.0 K/mm3 (0.0-0.1) 06/26/20 11:22 Seg Neutrophils % 72.1 % (40.0-70.0) H 06/26/20 11:22 Seg Neutrophils # 3.3 K/mm3 (1.8-7.7) 06/26/20 11:22 Sodium 141 mmol/L (137-145) 06/27/20 05:39 Potassium 3.2 mmol/L (3.6-5.0) L D 06/27/20 05:39 Chloride 98.6 mmol/L (98-107) 06/27/20 05:39 Carbon Dioxide 28 mmol/L (22-30) 06/27/20 05:39 Anion Gap 18 mmol/L 06/27/20 05:39 BUN 24 mg/dL (9-20) H 06/27/20 05:39 Creatinine 2.4 mg/dL (0.8-1.3) H 06/27/20 05:39 Estimated GFR 35 ml/min 06/27/20 05:39 BUN/Creatinine Ratio 10 % 06/27/20 05:39 Glucose 149 mg/dL (75-100) H 06/27/20 05:39 Calcium 8.3 mg/dL (8.4-10.2) L 06/27/20 05:39 Magnesium 2.30 mg/dL (1.7-2.3) 06/26/20 11:22 Total Bilirubin 0.50 mg/dL (0.1-1.2) 06/27/20 05:39 Direct Bilirubin < 0.2 mg/dL (0-0.2) 06/27/20 05:39 Indirect Bilirubin 0.3 mg/dL 06/27/20 05:39 AST 32 units/L (5-40) 06/27/20 05:39 ALT 54 units/L (7-56) 06/27/20 05:39 Alkaline Phosphatase 66 units/L (35-129) 06/27/20 05:39 Total Creatine Kinase 195 units/L (55-170) H 06/26/20 11:22 Troponin T 0.031 ng/mL (0.00-0.029) H D 06/28/20 07:14 NT-Pro-B Natriuret Pep 7493 pg/mL (0-450) H 06/26/20 11:22 Total Protein 6.5 g/dL (6.3-8.2) 06/27/20 05:39 Albumin 3.5 g/dL (3.9-5) L 06/27/20 05:39 Albumin/Globulin Ratio 1.2 % 06/27/20 05:39 Triglycerides 88 mg/dL (2-149) 06/26/20 11:22 Cholesterol 90 mg/dL (50-199) 06/26/20 11:22 LDL Cholesterol Direct 44 mg/dL (50-130) L 06/26/20 11:22 HDL Cholesterol 38 mg/dL (40-59) L 06/26/20 11:22 Cholesterol/HDL Ratio 2.36 % 06/26/20 11:22 - Diagnostic Impressions Diagnostic Impressions: Echocardiogram 06/26/20 14:07 Transthoracic Echocardiogram Indication: SOB BP: 143/103 HR: 89 Conclusions *The left ventricular chamber size is moderately dilated. *Moderate concentric left ventricular hypertrophy is observed. *Global left ventricular systolic function is severely decreased. *The estimated ejection fraction is 20-25%. *The left atrium is moderately dilated. *There is mild mitral regurgitation. *There is mild aortic regurgitation. *There is trace tricuspid regurgitation. Findings Left Ventricle: The left ventricular chamber size is moderately dilated. Moderate concentric left ventricular hypertrophy is observed. Global left ventricular systolic function is severely decreased. The estimated ejection fraction is 20-25%. Left Atrium: The left atrium is moderately dilated. Right Ventricle: The right ventricle is mildly dilated. Right Atrium: The right atrium is mild to moderately dilated. Aortic Valve: The aortic valve is trileaflet. There is mild aortic regurgitation. There is no evidence of aortic stenosis. Mitral Valve: The mitral valve leaflets are mildly thickened. There is mild mitral regurgitation. There is no evidence of mitral stenosis. Tricuspid Valve: There is trace tricuspid regurgitation. No pulmonary hypertension is noted. Pulmonic Valve: There is trace pulmonic regurgitation. Pericardium: There is no pericardial effusion. Aorta: There is no dilatation of the ascending aorta. There is no dilatation of the aortic root. Venous: The inferior vena cava appears normal in size. Measurements Chambers 2D Name Value Normal Range IVSd (2D) 1.72 cm (0.6 - 1.1) LVPWd (2D) 1.75 cm (0.6 - 1.1) LVIDd (2D) 4.69 cm (3.7 - 5.6) LVIDs (2D) 3.76 cm (2 - 3.8) LV FS (2D) 19.97 % - EF Teichholz (2D) 40.94 % - Ao root diameter (2D) 4.15 cm (2 - 3.7) Volumes/Mass Name Value Normal Range LA ESV SP 4CH (A/L) 110.45 ml - LA ESV SP 2CH (A/L) 92.93 ml - LA ESV BP (A/L) 103.76 ml - LA ESV BP (A/L) index 49.65 ml/m2 - LA ESV SP 4CH (MOD) 104.2 ml - LA ESV SP 2CH (MOD) 88.21 ml - LA ESV BP (MOD) 98 ml - LA ESV BP (MOD) index 46.89 ml/m2 - LV EDV SP 4CH (MOD) 210.4 ml - LV ESV SP 4CH (MOD) 143.88 ml - EF SP 4CH (MOD) 31.62 % - LV EDV SP 2CH (MOD) 221.79 ml - LV ESV SP 2CH (MOD) 132.07 ml - EF SP 2CH (MOD) 40.45 % - LV EDV BP 217.73 ml - LV ESV BP 141.28 ml - BP EF (MOD) 35.11 % - Diastolic/Systolic Function Name Value Normal Range MV E-wave Vmax 1.09 m/sec - MV deceleration time 133.48 msec - MV A-wave Vmax 0.39 m/sec - MV E:A ratio 2.8 ratio - Aortic Valve Name Value Normal Range AV Vmax 1.13 m/sec - AV VTI 18.21 cm - AV peak gradient 5.09 mmHg - AV mean gradient 2.83 mmHg - LVOT diameter 2.23 cm - LVOT Vmax 0.8 m/sec - LVOT VTI 12.25 cm - LVOT peak gradient 2.54 mmHg - LVOT mean gradient 1.39 mmHg - SV LVOT 47.92 ml - STEVE (continuity Vmax) 2.76 cm2 - STEVE (continuity VTI) 2.63 cm2 - AR PHT 948.89 msec - AR peak gradient 29.71 mmHg - Ascending Ao 3.88 cm - Mitral Valve Name Value Normal Range MV PHT 37.6 msec - MVA (PHT) 5.85 cm2 - Tricuspid Valve Name Value Normal Range IVC diameter 1.89 cm (1.2 - 2.3) Pulmonic Valve/Qp:Qs Name Value Normal Range PV Vmax 0.84 m/sec - PV VTI 16.01 cm - PV peak gradient 2.85 mmHg - PV mean gradient 1.5 mmHg - RVOT Vmax 0.66 m/sec - RVOT VTI 10.44 cm - RVOT peak gradient 1.74 mmHg - Hoskins/IV: Voiding Method Toilet IV Catheter Type [Left Hand] INT / Saline Lock Active Medications - Current Medications Current Medications: Generic Name Dose Route Start Last Admin Trade Name Freq PRN Reason Stop Dose Admin Aspirin 81 mg 06/29/20 10:00 Halfprin Ec PO QDAY NUHA Atorvastatin Calcium 40 mg 06/26/20 22:00 06/27/20 21:10 Lipitor PO 40 mg QHS NUHA Administration Doxazosin Mesylate 2 mg 06/28/20 22:00 Cardura PO QHS NUHA Furosemide 40 mg 06/28/20 12:00 06/28/20 13:27 Lasix PO 40 mg QDAY NUHA Administration Heparin Sodium (Porcine) 5,000 unit 06/26/20 22:00 06/28/20 09:15 Heparin SUB-Q 5,000 unit Q12HR NUHA Administration Isosorbide Dinitrate/Hydralazine 1 each 06/27/20 12:00 06/28/20 09:14 Bidil 20/37.5mg PO 1 each Q12HR NUHA Administration Metoprolol Tartrate 50 mg 06/28/20 15:00 06/28/20 16:29 Metoprolol PO 50 mg Q8HR NUHA Administration Nifedipine 60 mg 06/28/20 13:00 06/28/20 13:25 Procardia Xl PO 60 mg QDAY NUHA Administration Nitroglycerin 0.4 mg 06/26/20 14:04 Nitrostat SL .Q5MIN PRN Chest Pain Potassium Chloride 40 meq 06/27/20 12:00 06/28/20 09:15 K-Dur PO 06/28/20 22:01 40 meq Q12HR NUHA Administration Spironolactone 25 mg 06/28/20 13:00 06/28/20 13:27 Aldactone PO 25 mg QDAY NUHA Administration Nutrition/Malnutrition Assess - Dietary Evaluation Nutrition/Malnutrition Findings: Nutrition Notes Start: 06/27/20 10:31 Freq: Status: Active Protocol: Document 06/28/20 14:29 LM (Rec: 06/28/20 14:32 LM [id number]) Nutrition Notes Initial or Follow up Brief Note Subjective/Other Information Pt sleeping at time of visit. Pt with 100% intakes in chart. No physical signs of malnutrition. Nutrition Intervention Follow-Up By: 07/01/20 Additional Comments F/U for full assessment
[2020-06-29] MEDS: DOXAZOSIN 1 MG TAB PO SCH ×2 (00:02→21:48)
[2020-06-29] MEDS: ISOSORB DINIT/HYDRALAZINE 20-37.5MG TAB PO SCH ×3 (00:03→21:47)
[2020-06-29] MEDS: METOPROLOL TARTRATE 50 MG TAB PO SCH ×4 (00:03→21:48)
[2020-06-29] MEDS: HEPARIN 5,000 UNIT/1 ML VIAL SUB-Q SCH ×2 (09:03→21:47)
[2020-06-29] MEDS: NIFEdipine XL 60 MG TAB PO SCH (09:03)
[2020-06-29] MEDS: ASPIRIN EC 81 MG TAB PO SCH (09:03)
[2020-06-29] MEDS: FUROSEMIDE 40 MG TAB PO SCH (09:04)
[2020-06-29] MEDS: SPIRONOLACTONE 25 MG TAB PO SCH (09:07)
--- NOTE | 2020-06-29 21:13 | Progress Note ---
Assessment and Plan - Patient Problems (1) New onset of congestive heart failure Current Visit: Yes Status: Acute Plan to address problem: Systolic CHF: Strict I's/O, monitor urine output every shift, daily weight, afterload reduction, echocardiogram reveals ejection fraction of 25%. Cardiology team planning LifeVest placement. (2) Noncompliance with medication regimen Current Visit: Yes Status: Acute Plan to address problem: Patient counseled regarding medication noncompliance. Patient knowledges understanding and agreement with care plan. Patient states that he will be compliant with his medication regimen in the future. Patient also reports that he will comply and follow-up with primary care physician on outpatient basis. (3) BECCA (acute kidney injury) Current Visit: Yes Status: Acute Plan to address problem: Strict I's/O, monitor urine output every shift, follow-up PCP within 1 week with repeat BMP. (4) Hypertensive urgency Current Visit: Yes Status: Acute Plan to address problem: Monitor blood pressure every shift, continue medical management. (5) Ventricular tachycardia, non-sustained Current Visit: Yes Status: Acute Plan to address problem: Pending life vest placement. (6) DVT prophylaxis Current Visit: Yes Status: Acute Plan to address problem: SCD to bilateral lower extremities while in bed, patient is ambulatory. History Interval history: 49 YO Male HD #4 with Systolic CHF(EF 25%), Medication Noncompliance, Nicotine Dependence, ETOH Dependence. Patient states that he feels better today. Pat ient denies fever, chills, chest pain, palpitations, productive cough. Patient states that his shortness of breath is improved. Pt is pending life vest placement. Hospitalist Physical - Constitutional Vitals: Temp Pulse Resp BP Pulse Ox 98.4 F 79 18 145/104 97 06/29/20 19:41 06/29/20 19:41 06/29/20 19:41 06/29/20 19:41 06/29/20 19:41 General appearance: Present: no acute distress - EENT Eyes: Present: PERRL, EOM intact ENT: clear oral mucosa - Neck Neck: Present: supple - Respiratory Respiratory: bilateral: CTA - Cardiovascular Rhythm: regular Heart Sounds: Present: S1 & S2 - Extremities Extremities: no ischemia Peripheral Pulses: within normal limits - Abdominal General gastrointestinal: soft, non-tender, non-distended - Integumentary Integumentary: Present: clear, dry - Psychiatric Psychiatric: appropriate mood/affect, cooperative - Neurologic Neurologic: CNII-XII intact HEART Score - HEART Score Troponin: Troponin T 0.031 ng/mL (0.00-0.029) H D 06/28/20 07:14 Results - Labs CBC & Chem 7: 06/26/20 11:22 06/27/20 05:39 Labs: Laboratory Last Values WBC 4.6 K/mm3 (4.5-11.0) 06/26/20 11:22 RBC 4.20 M/mm3 (3.65-5.03) 06/26/20 11:22 Hgb 12.2 gm/dl (11.8-15.2) 06/26/20 11:22 Hct 35.9 % (35.5-45.6) 06/26/20 11:22 MCV 86 fl (84-94) 06/26/20 11:22 MCH 29 pg (28-32) 06/26/20 11:22 MCHC 34 % (32-34) 06/26/20 11:22 RDW 14.1 % (13.2-15.2) 06/26/20 11:22 Plt Count 146 K/mm3 (140-440) 06/26/20 11:22 Lymph % (Auto) 20.9 % (13.4-35.0) 06/26/20 11:22 Graham % (Auto) 6.0 % (0.0-7.3) 06/26/20 11:22 Eos % (Auto) 0.3 % (0.0-4.3) 06/26/20 11:22 Baso % (Auto) 0.7 % (0.0-1.8) 06/26/20 11:22 Lymph # 1.0 K/mm3 (1.2-5.4) L 06/26/20 11:22 Graham # 0.3 K/mm3 (0.0-0.8) 06/26/20 11:22 Eos # 0.0 K/mm3 (0.0-0.4) 06/26/20 11:22 Baso # 0.0 K/mm3 (0.0-0.1) 06/26/20 11:22 Seg Neutrophils % 72.1 % (40.0-70.0) H 06/26/20 11:22 Seg Neutrophils # 3.3 K/mm3 (1.8-7.7) 06/26/20 11:22 Sodium 141 mmol/L (137-145) 06/27/20 05:39 Potassium 3.2 mmol/L (3.6-5.0) L D 06/27/20 05:39 Chloride 98.6 mmol/L (98-107) 06/27/20 05:39 Carbon Dioxide 28 mmol/L (22-30) 06/27/20 05:39 Anion Gap 18 mmol/L 06/27/20 05:39 BUN 24 mg/dL (9-20) H 06/27/20 05:39 Creatinine 2.4 mg/dL (0.8-1.3) H 06/27/20 05:39 Estimated GFR 35 ml/min 06/27/20 05:39 BUN/Creatinine Ratio 10 % 06/27/20 05:39 Glucose 149 mg/dL (75-100) H 06/27/20 05:39 Calcium 8.3 mg/dL (8.4-10.2) L 06/27/20 05:39 Magnesium 2.30 mg/dL (1.7-2.3) 06/26/20 11:22 Total Bilirubin 0.50 mg/dL (0.1-1.2) 06/27/20 05:39 Direct Bilirubin < 0.2 mg/dL (0-0.2) 06/27/20 05:39 Indirect Bilirubin 0.3 mg/dL 06/27/20 05:39 AST 32 units/L (5-40) 06/27/20 05:39 ALT 54 units/L (7-56) 06/27/20 05:39 Alkaline Phosphatase 66 units/L (35-129) 06/27/20 05:39 Total Creatine Kinase 195 units/L (55-170) H 06/26/20 11:22 Troponin T 0.031 ng/mL (0.00-0.029) H D 06/28/20 07:14 NT-Pro-B Natriuret Pep 7493 pg/mL (0-450) H 06/26/20 11:22 Total Protein 6.5 g/dL (6.3-8.2) 06/27/20 05:39 Albumin 3.5 g/dL (3.9-5) L 06/27/20 05:39 Albumin/Globulin Ratio 1.2 % 06/27/20 05:39 Triglycerides 88 mg/dL (2-149) 06/26/20 11:22 Cholesterol 90 mg/dL (50-199) 06/26/20 11:22 LDL Cholesterol Direct 44 mg/dL (50-130) L 06/26/20 11:22 HDL Cholesterol 38 mg/dL (40-59) L 06/26/20 11:22 Cholesterol/HDL Ratio 2.36 % 06/26/20 11:22 - Diagnostic Impressions Diagnostic Impressions: Echocardiogram 06/26/20 14:07 Transthoracic Echocardiogram Indication: SOB BP: 143/103 HR: 89 Conclusions *The left ventricular chamber size is moderately dilated. *Moderate concentric left ventricular hypertrophy is observed. *Global left ventricular systolic function is severely decreased. *The estimated ejection fraction is 20-25%. *The left atrium is moderately dilated. *There is mild mitral regurgitation. *There is mild aortic regurgitation. *There is trace tricuspid regurgitation. Findings Left Ventricle: The left ventricular chamber size is moderately dilated. Moderate concentric left ventricular hypertrophy is observed. Global left ventricular systolic function is severely decreased. The estimated ejection fraction is 20-25%. Left Atrium: The left atrium is moderately dilated. Right Ventricle: The right ventricle is mildly dilated. Right Atrium: The right atrium is mild to moderately dilated. Aortic Valve: The aortic valve is trileaflet. There is mild aortic regurgitation. There is no evidence of aortic stenosis. Mitral Valve: The mitral valve leaflets are mildly thickened. There is mild mitral regurgitation. There is no evidence of mitral stenosis. Tricuspid Valve: There is trace tricuspid regurgitation. No pulmonary hypertension is noted. Pulmonic Valve: There is trace pulmonic regurgitation. Pericardium: There is no pericardial effusion. Aorta: There is no dilatation of the ascending aorta. There is no dilatation of the aortic root. Venous: The inferior vena cava appears normal in size. Measurements Chambers 2D Name Value Normal Range IVSd (2D) 1.72 cm (0.6 - 1.1) LVPWd (2D) 1.75 cm (0.6 - 1.1) LVIDd (2D) 4.69 cm (3.7 - 5.6) LVIDs (2D) 3.76 cm (2 - 3.8) LV FS (2D) 19.97 % - EF Teichholz (2D) 40.94 % - Ao root diameter (2D) 4.15 cm (2 - 3.7) Volumes/Mass Name Value Normal Range LA ESV SP 4CH (A/L) 110.45 ml - LA ESV SP 2CH (A/L) 92.93 ml - LA ESV BP (A/L) 103.76 ml - LA ESV BP (A/L) index 49.65 ml/m2 - LA ESV SP 4CH (MOD) 104.2 ml - LA ESV SP 2CH (MOD) 88.21 ml - LA ESV BP (MOD) 98 ml - LA ESV BP (MOD) index 46.89 ml/m2 - LV EDV SP 4CH (MOD) 210.4 ml - LV ESV SP 4CH (MOD) 143.88 ml - EF SP 4CH (MOD) 31.62 % - LV EDV SP 2CH (MOD) 221.79 ml - LV ESV SP 2CH (MOD) 132.07 ml - EF SP 2CH (MOD) 40.45 % - LV EDV BP 217.73 ml - LV ESV BP 141.28 ml - BP EF (MOD) 35.11 % - Diastolic/Systolic Function Name Value Normal Range MV E-wave Vmax 1.09 m/sec - MV deceleration time 133.48 msec - MV A-wave Vmax 0.39 m/sec - MV E:A ratio 2.8 ratio - Aortic Valve Name Value Normal Range AV Vmax 1.13 m/sec - AV VTI 18.21 cm - AV peak gradient 5.09 mmHg - AV mean gradient 2.83 mmHg - LVOT diameter 2.23 cm - LVOT Vmax 0.8 m/sec - LVOT VTI 12.25 cm - LVOT peak gradient 2.54 mmHg - LVOT mean gradient 1.39 mmHg - SV LVOT 47.92 ml - STEVE (continuity Vmax) 2.76 cm2 - STEVE (continuity VTI) 2.63 cm2 - AR PHT 948.89 msec - AR peak gradient 29.71 mmHg - Ascending Ao 3.88 cm - Mitral Valve Name Value Normal Range MV PHT 37.6 msec - MVA (PHT) 5.85 cm2 - Tricuspid Valve Name Value Normal Range IVC diameter 1.89 cm (1.2 - 2.3) Pulmonic Valve/Qp:Qs Name Value Normal Range PV Vmax 0.84 m/sec - PV VTI 16.01 cm - PV peak gradient 2.85 mmHg - PV mean gradient 1.5 mmHg - RVOT Vmax 0.66 m/sec - RVOT VTI 10.44 cm - RVOT peak gradient 1.74 mmHg - Hoskins/IV: Voiding Method Toilet IV Catheter Type [Left Hand] INT / Saline Lock Active Medications - Current Medications Current Medications: Generic Name Dose Route Start Last Admin Trade Name Freq PRN Reason Stop Dose Admin Aspirin 81 mg 06/29/20 10:00 06/29/20 09:03 Halfprin Ec PO 81 mg QDAY NUHA Administration Atorvastatin Calcium 40 mg 06/26/20 22:00 06/28/20 21:39 Lipitor PO 40 mg QHS NUHA Administration Doxazosin Mesylate 2 mg 06/28/20 22:00 06/29/20 00:02 Cardura PO 2 mg QHS NUHA Administration Furosemide 40 mg 06/28/20 12:00 06/29/20 09:04 Lasix PO 40 mg QDAY NUHA Administration Heparin Sodium (Porcine) 5,000 unit 06/26/20 22:00 06/29/20 09:03 Heparin SUB-Q 5,000 unit Q12HR NUHA Administration Isosorbide Dinitrate/Hydralazine 1 each 06/27/20 12:00 06/29/20 09:03 Bidil 20/37.5mg PO 1 each Q12HR NUHA Administration Metoprolol Tartrate 50 mg 06/28/20 15:00 06/29/20 13:22 Metoprolol PO 50 mg Q8HR NUHA Administration Nifedipine 60 mg 06/28/20 13:00 06/29/20 09:03 Procardia Xl PO 60 mg QDAY NUHA Administration Nitroglycerin 0.4 mg 06/26/20 14:04 Nitrostat SL .Q5MIN PRN Chest Pain Spironolactone 25 mg 06/28/20 13:00 06/29/20 09:07 Aldactone PO 25 mg QDAY NUHA Administration Nutrition/Malnutrition Assess - Dietary Evaluation Nutrition/Malnutrition Findings: Nutrition Notes Start: 06/27/20 10:31 Freq: Status: Active Protocol: Document 06/28/20 14:29 LM (Rec: 06/28/20 14:32 LM [id number]) Nutrition Notes Initial or Follow up Brief Note Subjective/Other Information Pt sleeping at time of visit. Pt with 100% intakes in chart. No physical signs of malnutrition. Nutrition Intervention Follow-Up By: 07/01/20 Additional Comments F/U for full assessment
[2020-06-30 06:16] LABS: Calcium 8.9 mg/dL (8.4-10.2)
[2020-06-30] MEDS: METOPROLOL TARTRATE 50 MG TAB PO SCH ×4 (06:56→23:55)
[2020-06-30] MEDS: SPIRONOLACTONE 25 MG TAB PO SCH (09:28)
[2020-06-30] MEDS: ASPIRIN EC 81 MG TAB PO SCH (09:28)
[2020-06-30] MEDS: ISOSORB DINIT/HYDRALAZINE 20-37.5MG TAB PO SCH ×3 (09:28→23:55)
[2020-06-30] MEDS: NIFEdipine XL 60 MG TAB PO SCH (09:28)
[2020-06-30] MEDS: FUROSEMIDE 40 MG TAB PO SCH (09:28)
[2020-06-30] MEDS: HEPARIN 5,000 UNIT/1 ML VIAL SUB-Q SCH ×2 (09:33→22:08)
--- NOTE | 2020-06-30 18:21 | Cat Scan Report ---
CT HEAD WITHOUT CONTRAST INDICATION / CLINICAL INFORMATION: confusion. TECHNIQUE: All CT scans at this location are performed using CT dose reduction for ALARA by means of automated e xposure control. COMPARISON: None available. FINDINGS: HEMORRHAGE: No evidence of intracranial hemorrhage or extra-axial fluid collection. EXTRA-AXIAL SPACES: Cortical sulci, sylvian fissures and basilar cisterns have an unremarkable appear ance. VENTRICULAR SYSTEM: The ventricular system is of normal size and configuration. CEREBRAL PARENCHYMA: Widespread white matter lucency is noted throughout both cerebral hemispheres. T his is an abnormal finding in this 49-year-old individual. Findings could be secondary to premature m icrovascular ischemic change. Is there history of hypertension, diabetes, renal failure or cigarettes smoking Leukoencephalopathy secondary to infectious encephalopathy (HIV or CMV) widespread vasogenic edema or toxic or metabolic leukoencephalopathy can also be considered. Further evaluation to includ e MRI brain without and with intravenous contrast is advised. Several small deep infarctions are iden tified. These are present in the white matter of the centrum semiovale of both frontal lobes as well as in the region of the head of caudate nucleus on the right. There is evidence of remote small deep infarction in the white matter of the right cerebellum. These are not associated with mass effect or hemorrhage. MIDLINE SHIFT OR HERNIATION: There is no mass effect. CEREBELLUM / BRAINSTEM: Brainstem has an unremarkable appearance. Evidence of remote small deep infar ction in the right cerebellar white matter. MIDLINE STRUCTURES:No abnormalities of the pituitary gland or pineal region are identified. INTRACRANIAL VESSELS:No abnormalities are identified on this noncontrast head CT. ORBITS: visualized portions of the orbits have an unremarkable appearance. SOFT TISSUES of HEAD: No significant abnormality. CALVARIUM: Evaluation of bone windows reveals no abnormalities. PARANASAL SINUSES / MASTOID AIR CELLS: Paranasal sinuses are free from inflammatory mucosal disease. Mastoid air cells are normally pneumatized. ADDITIONAL FINDINGS: None. IMPRESSION: 1. Advanced leukoencephalopathy as described above. Follow-up with MRI brain without and with intrave nous contrast is advised. 2. Multiple remote small deep infarctions as described above. 3. No mass effect or evidence of intracranial hemorrhage. Signer Name: Guicho Charles MD Signed: 06/30/2020 6:16 PM Workstation Name: [id number]
--- NOTE | 2020-06-30 19:05 | Progress Note ---
Assessment and Plan - Patient Problems (1) New onset of congestive heart failure Current Visit: Yes Status: Acute Plan to address problem: Systolic CHF: Strict I's/O, monitor urine output every shift, daily weight, afterload reduction, echocardiogram reveals ejection fraction of 25%. Cardiology team planning LifeVest placement. (2) Noncompliance with medication regimen Current Visit: Yes Status: Acute Plan to address problem: Patient counseled regarding medication noncompliance. Patient knowledges understanding and agreement with care plan. Patient states that he will be compliant with his medication regimen in the future. Patient also reports that he will comply and follow-up with primary care physician on outpatient basis. (3) BECCA (acute kidney injury) Current Visit: Yes Status: Acute Plan to address problem: Strict I's/O, monitor urine output every shift, follow-up PCP within 1 week with repeat BMP. (4) Hypertensive urgency Current Visit: Yes Status: Acute Plan to address problem: Monitor blood pressure every shift, continue medical management. (5) Ventricular tachycardia, non-sustained Current Visit: Yes Status: Acute Plan to address problem: Pending life vest placement. (6) Confusion Current Visit: Yes Status: Acute Plan to address problem: CT Head ordered, Rapid HIV ordered. (7) DVT prophylaxis Current Visit: Yes Status: Acute Plan to address problem: SCD to bilateral lower extremities while in bed, patient is ambulatory. History Interval history: 49 YO Male HD #5 with Systolic CHF(EF 25%), Medication Noncompliance, Nicotine Dependence, ETOH Dependence. Patient is somewhat confused today. Patient denies fever, chills, chest pain, palpitations, productive cough. Patient denies complaints. Pt is pending life vest placement as per cardiology team. Hospitalist Physical - Constitutional Vitals: Temp Pulse Resp BP Pulse Ox 97.9 F 70 18 115/76 96 06/30/20 16:17 06/30/20 16:17 06/30/20 16:17 06/30/20 16:17 06/30/20 16:17 General appearance: Present: no acute distress - EENT Eyes: Present: PERRL, EOM intact ENT: hearing intact - Neck Neck: Present: supple - Respiratory Respiratory effort: normal Respiratory: bilateral: CTA - Cardiovascular Rhythm: regular Heart Sounds: Present: S1 & S2 - Extremities Extremities: no ischemia Peripheral Pulses: within normal limits - Abdominal General gastrointestinal: soft, non-tender, non-distended - Integumentary Integumentary: Present: clear, dry - Psychiatric Psychiatric: no memory intact, agitated - Neurologic Neurologic: CNII-XII intact HEART Score - HEART Score Troponin: Troponin T 0.031 ng/mL (0.00-0.029) H D 06/28/20 07:14 Results - Labs CBC & Chem 7: 06/26/20 11:22 06/30/20 05:28 Labs: Laboratory Last Values WBC 4.6 K/mm3 (4.5-11.0) 06/26/20 11:22 RBC 4.20 M/mm3 (3.65-5.03) 06/26/20 11:22 Hgb 12.2 gm/dl (11.8-15.2) 06/26/20 11:22 Hct 35.9 % (35.5-45.6) 06/26/20 11:22 MCV 86 fl (84-94) 06/26/20 11:22 MCH 29 pg (28-32) 06/26/20 11:22 MCHC 34 % (32-34) 06/26/20 11:22 RDW 14.1 % (13.2-15.2) 06/26/20 11:22 Plt Count 146 K/mm3 (140-440) 06/26/20 11:22 Lymph % (Auto) 20.9 % (13.4-35.0) 06/26/20 11:22 Chester % (Auto) 6.0 % (0.0-7.3) 06/26/20 11:22 Eos % (Auto) 0.3 % (0.0-4.3) 06/26/20 11:22 Baso % (Auto) 0.7 % (0.0-1.8) 06/26/20 11:22 Lymph # 1.0 K/mm3 (1.2-5.4) L 06/26/20 11:22 Chester # 0.3 K/mm3 (0.0-0.8) 06/26/20 11:22 Eos # 0.0 K/mm3 (0.0-0.4) 06/26/20 11:22 Baso # 0.0 K/mm3 (0.0-0.1) 06/26/20 11:22 Seg Neutrophils % 72.1 % (40.0-70.0) H 06/26/20 11:22 Seg Neutrophils # 3.3 K/mm3 (1.8-7.7) 06/26/20 11:22 Sodium 143 mmol/L (137-145) 06/30/20 05:28 Potassium 3.7 mmol/L (3.6-5.0) 06/30/20 05:28 Chloride 101.9 mmol/L (98-107) 06/30/20 05:28 Carbon Dioxide 27 mmol/L (22-30) 06/30/20 05:28 Anion Gap 18 mmol/L 06/30/20 05:28 BUN 23 mg/dL (9-20) H 06/30/20 05:28 Creatinine 2.3 mg/dL (0.8-1.3) H 06/30/20 05:28 Estimated GFR 37 ml/min 06/30/20 05:28 BUN/Creatinine Ratio 10 % 06/30/20 05:28 Glucose 140 mg/dL (75-100) H 06/30/20 05:28 POC Glucose 107 (70-105) H 06/30/20 08:11 Calcium 8.9 mg/dL (8.4-10.2) 06/30/20 05:28 Magnesium 2.10 mg/dL (1.7-2.3) 06/30/20 05:28 Total Bilirubin 0.50 mg/dL (0.1-1.2) 06/27/20 05:39 Direct Bilirubin < 0.2 mg/dL (0-0.2) 06/27/20 05:39 Indirect Bilirubin 0.3 mg/dL 06/27/20 05:39 AST 32 units/L (5-40) 06/27/20 05:39 ALT 54 units/L (7-56) 06/27/20 05:39 Alkaline Phosphatase 66 units/L (35-129) 06/27/20 05:39 Total Creatine Kinase 195 units/L (55-170) H 06/26/20 11:22 Troponin T 0.031 ng/mL (0.00-0.029) H D 06/28/20 07:14 NT-Pro-B Natriuret Pep 7493 pg/mL (0-450) H 06/26/20 11:22 Total Protein 6.5 g/dL (6.3-8.2) 06/27/20 05:39 Albumin 3.5 g/dL (3.9-5) L 06/27/20 05:39 Albumin/Globulin Ratio 1.2 % 06/27/20 05:39 Triglycerides 88 mg/dL (2-149) 06/26/20 11:22 Cholesterol 90 mg/dL (50-199) 06/26/20 11:22 LDL Cholesterol Direct 44 mg/dL (50-130) L 06/26/20 11:22 HDL Cholesterol 38 mg/dL (40-59) L 06/26/20 11:22 Cholesterol/HDL Ratio 2.36 % 06/26/20 11:22 - Diagnostic Impressions Diagnostic Impressions: Echocardiogram 06/26/20 14:07 Transthoracic Echocardiogram Indication: SOB BP: 143/103 HR: 89 Conclusions *The left ventricular chamber size is moderately dilated. *Moderate concentric left ventricular hypertrophy is observed. *Global left ventricular systolic function is severely decreased. *The estimated ejection fraction is 20-25%. *The left atrium is moderately dilated. *There is mild mitral regurgitation. *There is mild aortic regurgitation. *There is trace tricuspid regurgitation. Findings Left Ventricle: The left ventricular chamber size is moderately dilated. Moderate concentric left ventricular hypertrophy is observed. Global left ventricular systolic function is severely decreased. The estimated ejection fraction is 20-25%. Left Atrium: The left atrium is moderately dilated. Right Ventricle: The right ventricle is mildly dilated. Right Atrium: The right atrium is mild to moderately dilated. Aortic Valve: The aortic valve is trileaflet. There is mild aortic regurgitation. There is no evidence of aortic stenosis. Mitral Valve: The mitral valve leaflets are mildly thickened. There is mild mitral regurgitation. There is no evidence of mitral stenosis. Tricuspid Valve: There is trace tricuspid regurgitation. No pulmonary hypertension is noted. Pulmonic Valve: There is trace pulmonic regurgitation. Pericardium: There is no pericardial effusion. Aorta: There is no dilatation of the ascending aorta. There is no dilatation of the aortic root. Venous: The inferior vena cava appears normal in size. Measurements Chambers 2D Name Value Normal Range IVSd (2D) 1.72 cm (0.6 - 1.1) LVPWd (2D) 1.75 cm (0.6 - 1.1) LVIDd (2D) 4.69 cm (3.7 - 5.6) LVIDs (2D) 3.76 cm (2 - 3.8) LV FS (2D) 19.97 % - EF Teichholz (2D) 40.94 % - Ao root diameter (2D) 4.15 cm (2 - 3.7) Volumes/Mass Name Value Normal Range LA ESV SP 4CH (A/L) 110.45 ml - LA ESV SP 2CH (A/L) 92.93 ml - LA ESV BP (A/L) 103.76 ml - LA ESV BP (A/L) index 49.65 ml/m2 - LA ESV SP 4CH (MOD) 104.2 ml - LA ESV SP 2CH (MOD) 88.21 ml - LA ESV BP (MOD) 98 ml - LA ESV BP (MOD) index 46.89 ml/m2 - LV EDV SP 4CH (MOD) 210.4 ml - LV ESV SP 4CH (MOD) 143.88 ml - EF SP 4CH (MOD) 31.62 % - LV EDV SP 2CH (MOD) 221.79 ml - LV ESV SP 2CH (MOD) 132.07 ml - EF SP 2CH (MOD) 40.45 % - LV EDV BP 217.73 ml - LV ESV BP 141.28 ml - BP EF (MOD) 35.11 % - Diastolic/Systolic Function Name Value Normal Range MV E-wave Vmax 1.09 m/sec - MV deceleration time 133.48 msec - MV A-wave Vmax 0.39 m/sec - MV E:A ratio 2.8 ratio - Aortic Valve Name Value Normal Range AV Vmax 1.13 m/sec - AV VTI 18.21 cm - AV peak gradient 5.09 mmHg - AV mean gradient 2.83 mmHg - LVOT diameter 2.23 cm - LVOT Vmax 0.8 m/sec - LVOT VTI 12.25 cm - LVOT peak gradient 2.54 mmHg - LVOT mean gradient 1.39 mmHg - SV LVOT 47.92 ml - STEVE (continuity Vmax) 2.76 cm2 - STEVE (continuity VTI) 2.63 cm2 - AR PHT 948.89 msec - AR peak gradient 29.71 mmHg - Ascending Ao 3.88 cm - Mitral Valve Name Value Normal Range MV PHT 37.6 msec - MVA (PHT) 5.85 cm2 - Tricuspid Valve Name Value Normal Range IVC diameter 1.89 cm (1.2 - 2.3) Pulmonic Valve/Qp:Qs Name Value Normal Range PV Vmax 0.84 m/sec - PV VTI 16.01 cm - PV peak gradient 2.85 mmHg - PV mean gradient 1.5 mmHg - RVOT Vmax 0.66 m/sec - RVOT VTI 10.44 cm - RVOT peak gradient 1.74 mmHg - Hoskins/IV: Voiding Method Toilet IV Catheter Type [Left Hand] INT / Saline Lock Active Medications - Current Medications Current Medications: Generic Name Dose Route Start Last Admin Trade Name Freq PRN Reason Stop Dose Admin Aspirin 81 mg 06/29/20 10:00 06/30/20 09:28 Halfprin Ec PO 81 mg QDAY NUHA Administration Atorvastatin Calcium 40 mg 06/26/20 22:00 06/29/20 21:48 Lipitor PO 40 mg QHS NUHA Administration Doxazosin Mesylate 2 mg 06/28/20 22:00 06/29/20 21:48 Cardura PO 2 mg QHS NUHA Administration Furosemide 40 mg 06/28/20 12:00 06/30/20 09:28 Lasix PO 40 mg QDAY NUHA Administration Heparin Sodium (Porcine) 5,000 unit 06/26/20 22:00 06/30/20 09:33 Heparin SUB-Q 5,000 unit Q12HR NUHA Administration Isosorbide Dinitrate/Hydralazine 1 each 06/27/20 12:00 06/30/20 09:28 Bidil 20/37.5mg PO 1 each Q12HR NUHA Administration Metoprolol Tartrate 50 mg 06/28/20 15:00 06/30/20 14:11 Metoprolol PO 50 mg Q8HR NUHA Administration Nifedipine 60 mg 06/28/20 13:00 06/30/20 09:28 Procardia Xl PO 60 mg QDAY NUHA Administration Nitroglycerin 0.4 mg 06/26/20 14:04 Nitrostat SL .Q5MIN PRN Chest Pain Spironolactone 25 mg 06/28/20 13:00 06/30/20 09:28 Aldactone PO 25 mg QDAY NUHA Administration Nutrition/Malnutrition Assess - Dietary Evaluation Nutrition/Malnutrition Findings: Nutrition Notes Start: 06/27/20 10:31 Freq: Status: Active Protocol: Document 06/28/20 14:29 LM (Rec: 06/28/20 14:32 LM [id number]) Nutrition Notes Initial or Follow up Brief Note Subjective/Other Information Pt sleeping at time of visit. Pt with 100% intakes in chart. No physical signs of malnutrition. Nutrition Intervention Follow-Up By: 07/01/20 Additional Comments F/U for full assessment
[2020-06-30] MEDS ORDERED: LORazepam 2 MG/ML VIAL IV PRN (20:51)
[2020-06-30] MEDS ORDERED: ZIPRASIDONE MESYLATE 20 MG VIAL IM ONE (21:00)
[2020-06-30] MEDS ORDERED: WATER FOR INJ Sterile (PF) 10 ML ONE (21:10)
[2020-06-30] MEDS: DOXAZOSIN 1 MG TAB PO SCH ×2 (23:55)
[2020-07-01] MEDS ORDERED: ZIPRASIDONE MESYLATE 20 MG VIAL IM ONE ×2 (05:16→22:15)
[2020-07-01] MEDS ORDERED: WATER FOR INJ Sterile (PF) 10 ML ONE (05:41)
[2020-07-01] MEDS: METOPROLOL TARTRATE 50 MG TAB PO SCH ×3 (06:16→21:00)
[2020-07-01] MEDS: ISOSORB DINIT/HYDRALAZINE 20-37.5MG TAB PO SCH ×2 (09:23→21:00)
[2020-07-01] MEDS: HEPARIN 5,000 UNIT/1 ML VIAL SUB-Q SCH ×2 (09:23→21:01)
[2020-07-01] MEDS: SPIRONOLACTONE 25 MG TAB PO SCH (09:23)
[2020-07-01] MEDS: ASPIRIN EC 81 MG TAB PO SCH (09:23)
[2020-07-01] MEDS: FUROSEMIDE 40 MG TAB PO SCH (09:24)
[2020-07-01] MEDS: NIFEdipine XL 60 MG TAB PO SCH (09:24)
--- NOTE | 2020-07-01 13:19 | Consultation ---
History of Present Illness Consult date: 07/01/20 Reason for Consult: encephalopathy History of present illness: Patient is a 49-year-old male with a history of hypertension but not on any home medications, tobacco and alcohol abuse and no other prior medical history presents emergency room complaints of Progressive shortness of breath for last 2 months that significantly worsened since last night. Patient states that when he laid down he felt like he was going to . He has associated orthopnea. Patient states that he has not been able to sleep for the last 2 months secondary to the orthopnea. He denies any chest pain, nausea, vomiting, diarrhea, fever, cough, leg swelling. He states that he tested negative for COVID last week Sunday. He states he has not seen a primary care physician since 2010. In the ER patient blood pressure noted to be 204/148. He also noted to have elevated BNP, elevated troponin and elevated creatinine. He was given p.o. labetalol 200 mg one-time dose, chest x-ray in the ER showed cardiomegaly without any pulmonary edema. Patient now called for admission for further evaluation and management - Past Medical History: Uncontrolled hypertension - Surgical History Past Surgical History?: No - Social History Smoking Status: Current Every Day Smoker. Patient also endorses alcohol abuse every other day, he also takes marijuana frequently. -family history: Hypertension Review of System: Constitutional: no fever, no chills, no weight loss Ears, eyes, nose, mouth and throat: no nasal congestion, no nasal discharge, no sinus pressure, no vision change, no red eye. Neck: No neck pain or rigidity. Cardiovascular: No chest pain, + orthopnea, no palpitations, no leg swelling Respiratory: + shortness of breath, no cough, no congestion, no wheezing Gastrointestinal: no abdominal pain, no nausea, no vomiting Genitourinary : no dysuria, no hematuria Musculoskeletal: no joint swelling or muscle ache Integumentary: no rash, no pruritis Neurological: no parathesias, no numbness, no tingling Endocrine: no cold or heat intolerance, no polyuria or polydipsia Hematologic/Lymphatic: no easy bruising, no easy bleeding, no gland swelling Allergic/Immunologic: no urticaria, no angioedema. Information is obtained from PCP Medications and Allergies Allergies Allergy/AdvReac Type Severity Reaction Status Date / Time No Known Allergies Allergy Unverified 06/26/20 09:55 Home Medications Medication Instructions Recorded Confirmed Last Taken Type No Known Home Medications [No 06/26/20 06/26/20 Unknown History Reported Home Medications] Active Meds: Active Medications Aspirin (Aspirin) 325 mg PO QDAY [facility] Carvedilol (Coreg) 6.25 mg PO BID [facility] Furosemide (Lasix) 40 mg IV 0600,1800 [facility] Heparin Sodium (Porcine) (Heparin) 5,000 unit SUB-Q Q12HR [facility] Nitroglycerin (Nitrostat) 0.4 mg SL .Q5MIN PRN PRN Reason: Chest Pain Past History Past Medical History: hypertension Past Surgical History: No surgical history Social history: smoking, alcohol abuse Family history: hypertension Medications and Allergies Allergies Allergy/AdvReac Type Severity Reaction Status Date / Time No Known Allergies Allergy Unverified 06/26/20 09:55 Home Medications Medication Instructions Recorded Confirmed Last Taken Type Aspirin 325 mg PO QDAY #30 tablet 06/28/20 Unknown Rx AtorvaSTATin [Lipitor] 40 mg PO QHS #30 tablet 06/28/20 Unknown Rx Furosemide [Lasix TAB] 40 mg PO 0600,1800 #60 tablet 06/28/20 Unknown Rx Isosorb Dinit/Hydralazine [Bidil 1 each PO Q12HR #60 tablet 06/28/20 Unknown Rx 20/37.5MG] Potassium Chloride [K-Dur] 40 meq PO Q12HR #60 tablet 06/28/20 Unknown Rx amLODIPine 10 mg PO QDAY #30 tablet 06/28/20 Unknown Rx carvediloL [Coreg] 6.25 mg PO BID #60 tablet 06/28/20 Unknown Rx Active Meds: Active Medications Aspirin (Halfprin Ec) 81 mg PO QDAY [facility] Last Admin: 07/01/20 09:23 Dose: Not Given Documented by: Atorvastatin Calcium (Lipitor) 40 mg PO QHS [facility] Last Admin: 06/30/20 23:55 Dose: Not Given Documented by: Doxazosin Mesylate (Cardura) 2 mg PO QHS [facility] Last Admin: 06/30/20 23:55 Dose: Not Given Documented by: Furosemide (Lasix) 40 mg PO QDAY [facility] Last Admin: 07/01/20 09:24 Dose: Not Given Documented by: Heparin Sodium (Porcine) (Heparin) 5,000 unit SUB-Q Q12HR [facility] Last Admin: 07/01/20 09:23 Dose: Not Given Documented by: Isosorbide Dinitrate/Hydralazine (Bidil 20/37.5mg) 1 each PO Q12HR [facility] Last Admin: 07/01/20 09:23 Dose: Not Given Documented by: Lorazepam (Ativan) 1 mg IV Q4H PRN PRN Reason: Agitation Last Admin: 07/01/20 04:27 Dose: 1 mg Documented by: Metoprolol Tartrate (Metoprolol) 50 mg PO Q8HR [facility] Last Admin: 07/01/20 06:16 Dose: Not Given Documented by: Nifedipine (Procardia Xl) 60 mg PO QDAY [facility] Last Admin: 07/01/20 09:24 Dose: Not Given Documented by: Nitroglycerin (Nitrostat) 0.4 mg SL .Q5MIN PRN PRN Reason: Chest Pain Spironolactone (Aldactone) 25 mg PO QDAY [facility] Last Admin: 07/01/20 09:23 Dose: Not Given Documented by: Physical Examination - Vital Signs Vital Signs: Vital Signs Temp Pulse Resp BP Pulse Ox 97.5 F L 104 H 18 204/148 97 06/26/20 09:56 06/26/20 09:56 06/26/20 09:56 06/26/20 09:56 06/26/20 09:56 - EENT EENT: Present: PERRL - Respiratory Respiratory: Present: chest non-tender - Cardiovascular Cardiovascular: Present: regular rate Extremities: Present: no peripheral edema bilatateraly - Gastrointestinal Gastrointestinal: Present: normoactive bowel sounds - Integumentary Integumentary: Present: normal - Neurologic Cranial nerve examination: intact Sensorimotor examination: other (Move all limbs , but refuse to follow commands or to cooperate) Results - Laboratory Findings CBC and BMP: 06/26/20 11:22 06/30/20 05:28 Abnormal Lab Findings: Abnormal Labs 06/26/20 06/26/20 06/26/20 11:22 11:22 11:22 Lymph # 1.0 L Seg Neutrophils % 72.1 H Potassium BUN 24 H Creatinine 2.3 H Glucose 105 H POC Glucose Calcium AST 41 H ALT 58 H Total Creatine Kinase 195 H Troponin T 0.035 H NT-Pro-B Natriuret Pep 7493 H Albumin LDL Cholesterol Direct 44 L HDL Cholesterol 38 L 06/26/20 06/26/20 06/27/20 13:31 19:11 00:13 Lymph # Seg Neutrophils % Potassium BUN Creatinine Glucose POC Glucose Calcium AST ALT Total Creatine Kinase Troponin T 0.035 H 0.037 H 0.048 H D NT-Pro-B Natriuret Pep Albumin LDL Cholesterol Direct HDL Cholesterol 06/27/20 06/27/20 06/28/20 05:39 05:39 07:14 Lymph # Seg Neutrophils % Potassium 3.2 L D BUN 24 H Creatinine 2.4 H Glucose 149 H POC Glucose Calcium 8.3 L AST ALT Total Creatine Kinase Troponin T 0.043 H 0.031 H D NT-Pro-B Natriuret Pep Albumin 3.5 L LDL Cholesterol Direct HDL Cholesterol 06/30/20 06/30/20 05:28 08:11 Lymph # Seg Neutrophils % Potassium BUN 23 H Creatinine 2.3 H Glucose 140 H POC Glucose 107 H Calcium AST ALT Total Creatine Kinase Troponin T NT-Pro-B Natriuret Pep Albumin LDL Cholesterol Direct HDL Cholesterol Assessment and Plan 1-Encephalopathy -Multifactorial ,metabolic,infectious,HTN -Ct is with advanced Leukoencephalopathy,multiinfarct. -MRI/MRA brain pending 2-Malignant hypertension -BP was 204 x 148 on admission 3-new onset CHF -Patient noted to have elevated BNP and cardiomegaly on chest x-ray -2D echo showed Ef#20-25% -cardiology consult 4-Noncompliance, counseled for medication and dietary compliance 5-Tobacco abuse, counseled to quit 6-BECCA, cannot rule out underlying CKD -Baseline creatinine is unknown, -BUN/Cr#23/2.3 7-Elevated troponin/NSTEMI type II -Likely due to CHF exacerbation and underlying BECCA on CKD 8-Elevated LFT, likely due to hepatic congestion -We will continue to monitor DVT prophylaxis, heparin PLAN 1-MRI/MRA brain 2-EEG 3-Correct underlying infection,Electrolytes abnormalities 4- Control BP<140/80 5-Fasting lipid profil 6-Pt/ST evaluation will follow
[2020-07-01] MEDS: LORazepam 2 MG/ML VIAL IM PRN (19:50)
[2020-07-01] MEDS: DOXAZOSIN 1 MG TAB PO SCH (21:01)
[2020-07-01] MEDS ORDERED: cloNIDine 0.1 MG TAB PO ONE (22:00)
[2020-07-01] MEDS ORDERED: WATER FOR INJ Sterile (PF) 10 ML IM ONE (23:00)
[2020-07-02] MEDS: LORazepam 2 MG/ML VIAL IM PRN ×6 (00:03→21:12)
[2020-07-02] MEDS: METOPROLOL TARTRATE 50 MG TAB PO SCH ×3 (06:17→21:05)
[2020-07-02] MEDS: ISOSORB DINIT/HYDRALAZINE 20-37.5MG TAB PO SCH ×2 (10:58→21:04)
[2020-07-02] MEDS: HEPARIN 5,000 UNIT/1 ML VIAL SUB-Q SCH ×2 (10:58→21:05)
[2020-07-02] MEDS: ASPIRIN EC 81 MG TAB PO SCH (10:58)
[2020-07-02] MEDS: NIFEdipine XL 60 MG TAB PO SCH (10:58)
--- NOTE | 2020-07-02 11:19 | Magnetic Resonance Report ---
NONENHANCED MR SCAN OF THE BRAIN: INDICATION / CLINICAL INFORMATION: MAIN. Confusion TECHNIQUE: Multiplanar, multisequence MR images of the brain obtained. COMPARISON: CT scan of the head from 06/30/2020 FINDINGS: BRAIN / INTRACRANIAL CONTENTS: 1. Focal streaky area of restrictive diffusion with low ADC suggesting subacute infarction in the cor aparna radiata lateral to right caudate 2. Foci of susceptibility changes in both cerebral hemispheres; most prominent of these is in the lef t corpus stratum; this could be due to chronic microbleed's if there is history of hypertension 3. Confluent periventricular white matter hyperintensity sparing the subcortical white matter; involv ement of external capsules bilaterally; frontal lobe white matter involvement; anterior temporal lobe white matter involvement 4. Chronic ischemic changes in the faisal 5. Focal lesion in the right cerebellar hemisphere is probably focal area of encephalomalacia Though above described lesions could be due to , subcortical arteriosclerotic encephalopathy, involvement of the external capsule, anterior temporal lobe and hemorrhagic changes raise the possibi lity of CADASIL. Craniocervical junction: Normal Vascular flow-voids: Normal orbits: Normal Maxillary sinuses and mastoid air cells: Normal ADDITIONAL FINDINGS: None. IMPRESSION: Linear focal subacute ischemic lesion in the white matter adjacent to right caudate Extensive confluent white matter hyperintensity; involvement of external capsule; focal hemorrhagic c hanges; though these findings could be due to subcortical arteriosclerosis, CADASIL should also be co nsidered. Signer Name: Lev Santiago MD Signed: 07/02/2020 11:15 AM Workstation Name: [id number]
--- NOTE | 2020-07-02 11:22 | Magnetic Resonance Report ---
MRA HEAD WITHOUT CONTRAST HISTORY: Confusion COMPARISON: None. TECHNIQUE: Routine MRA of the head is performed. 3-D/MIP reformats postprocessed. CONTRAST: None. FINDINGS: Intracranial vertebral arteries: No significant abnormality. Basilar artery: No significant abnormality. Posterior cerebral arteries: No significant abnormality. Intracranial internal carotid arteries: No significant abnormality. Anterior cerebral arteries: No significant abnormality. Middle cerebral arteries: No significant abnormality. Variants and anomalies:None Additional findings: None. IMPRESSION: No significant abnormality. Signer Name: Lev Santiago MD Signed: 07/02/2020 11:18 AM Workstation Name: [id number]
--- NOTE | 2020-07-02 11:49 | Progress Note ---
Assessment and Plan - Patient Problems (1) New onset of congestive heart failure Current Visit: Yes Status: Acute Plan to address problem: Systolic CHF: Strict I's/O, monitor urine output every shift, daily weight, afterload reduction, echocardiogram reveals ejection fraction of 25%. Cardiology team planning LifeVest placement. (2) Noncompliance with medication regimen Current Visit: Yes Status: Acute Plan to address problem: Patient counseled regarding medication noncompliance. Patient knowledges understanding and agreement with care plan. Patient states that he will be compliant with his medication regimen in the future. Patient also reports that he will comply and follow-up with primary care physician on outpatient basis. (3) BECCA (acute kidney injury) Current Visit: Yes Status: Acute Plan to address problem: Strict I's/O, monitor urine output every shift, follow-up PCP within 1 week with repeat BMP. (4) Hypertensive urgency Current Visit: Yes Status: Acute Plan to address problem: Monitor blood pressure every shift, continue medical management. (5) Ventricular tachycardia, non-sustained Current Visit: Yes Status: Acute Plan to address problem: Pending life vest placement. (6) Confusion Current Visit: Yes Status: Acute Plan to address problem: CT Head ordered, Rapid HIV ordered. (7) Encephalopathy Current Visit: Yes Status: Acute Plan to address problem: CT Head, Neuro checks, Neurology consulted for cerebral edema, MRI brain pending. (8) DVT prophylaxis Current Visit: Yes Status: Acute Plan to address problem: SCD to bilateral lower extremities while in bed, patient is ambulatory. History Interval history: 49 YO Male HD #6 with Systolic CHF(EF 25%), Medication Noncompliance, Nicotine Dependence, ETOH Dependence. Patient is somewhat confused again today. Patient denies fever, chills, chest pain, palpitations, productive cough. Patient denies complaints. Pt is pending life vest placement as per cardiology team. Hospitalist Physical - Constitutional Vitals: Temp Pulse Resp BP Pulse Ox 98.3 F 81 20 175/116 96 07/02/20 08:03 07/02/20 08:03 07/02/20 08:03 07/02/20 08:03 07/02/20 08:03 General appearance: Present: no acute distress - EENT Eyes: Present: PERRL, EOM intact ENT: hearing intact - Neck Neck: Present: supple - Respiratory Respiratory: bilateral: diminished - Cardiovascular Rhythm: regular Heart Sounds: Present: S1 & S2 - Extremities Extremities: no ischemia Peripheral Pulses: within normal limits - Abdominal General gastrointestinal: soft, non-tender, non-distended - Integumentary Integumentary: Present: clear, warm - Psychiatric Psychiatric: cooperative - Neurologic Neurologic: CNII-XII intact HEART Score - HEART Score Troponin: Troponin T 0.031 ng/mL (0.00-0.029) H D 06/28/20 07:14 Results - Labs CBC & Chem 7: 06/26/20 11:22 06/30/20 05:28 Labs: Laboratory Last Values WBC 4.6 K/mm3 (4.5-11.0) 06/26/20 11:22 RBC 4.20 M/mm3 (3.65-5.03) 06/26/20 11:22 Hgb 12.2 gm/dl (11.8-15.2) 06/26/20 11:22 Hct 35.9 % (35.5-45.6) 06/26/20 11:22 MCV 86 fl (84-94) 06/26/20 11:22 MCH 29 pg (28-32) 06/26/20 11:22 MCHC 34 % (32-34) 06/26/20 11:22 RDW 14.1 % (13.2-15.2) 06/26/20 11:22 Plt Count 146 K/mm3 (140-440) 06/26/20 11:22 Lymph % (Auto) 20.9 % (13.4-35.0) 06/26/20 11:22 Crowley % (Auto) 6.0 % (0.0-7.3) 06/26/20 11:22 Eos % (Auto) 0.3 % (0.0-4.3) 06/26/20 11:22 Baso % (Auto) 0.7 % (0.0-1.8) 06/26/20 11:22 Lymph # 1.0 K/mm3 (1.2-5.4) L 06/26/20 11:22 Crowley # 0.3 K/mm3 (0.0-0.8) 06/26/20 11:22 Eos # 0.0 K/mm3 (0.0-0.4) 06/26/20 11:22 Baso # 0.0 K/mm3 (0.0-0.1) 06/26/20 11:22 Seg Neutrophils % 72.1 % (40.0-70.0) H 06/26/20 11:22 Seg Neutrophils # 3.3 K/mm3 (1.8-7.7) 06/26/20 11:22 Sodium 143 mmol/L (137-145) 06/30/20 05:28 Potassium 3.7 mmol/L (3.6-5.0) 06/30/20 05:28 Chloride 101.9 mmol/L (98-107) 06/30/20 05:28 Carbon Dioxide 27 mmol/L (22-30) 06/30/20 05:28 Anion Gap 18 mmol/L 06/30/20 05:28 BUN 23 mg/dL (9-20) H 06/30/20 05:28 Creatinine 2.3 mg/dL (0.8-1.3) H 06/30/20 05:28 Estimated GFR 37 ml/min 06/30/20 05:28 BUN/Creatinine Ratio 10 % 06/30/20 05:28 Glucose 140 mg/dL (75-100) H 06/30/20 05:28 POC Glucose 107 (70-105) H 06/30/20 08:11 Calcium 8.9 mg/dL (8.4-10.2) 06/30/20 05:28 Magnesium 2.10 mg/dL (1.7-2.3) 06/30/20 05:28 Total Bilirubin 0.50 mg/dL (0.1-1.2) 06/27/20 05:39 Direct Bilirubin < 0.2 mg/dL (0-0.2) 06/27/20 05:39 Indirect Bilirubin 0.3 mg/dL 06/27/20 05:39 AST 32 units/L (5-40) 06/27/20 05:39 ALT 54 units/L (7-56) 06/27/20 05:39 Alkaline Phosphatase 66 units/L (35-129) 06/27/20 05:39 Total Creatine Kinase 195 units/L (55-170) H 06/26/20 11:22 Troponin T 0.031 ng/mL (0.00-0.029) H D 06/28/20 07:14 NT-Pro-B Natriuret Pep 7493 pg/mL (0-450) H 06/26/20 11:22 Total Protein 6.5 g/dL (6.3-8.2) 06/27/20 05:39 Albumin 3.5 g/dL (3.9-5) L 06/27/20 05:39 Albumin/Globulin Ratio 1.2 % 06/27/20 05:39 Triglycerides 88 mg/dL (2-149) 06/26/20 11:22 Cholesterol 90 mg/dL (50-199) 06/26/20 11:22 LDL Cholesterol Direct 44 mg/dL (50-130) L 06/26/20 11:22 HDL Cholesterol 38 mg/dL (40-59) L 06/26/20 11:22 Cholesterol/HDL Ratio 2.36 % 06/26/20 11:22 - Diagnostic Impressions Diagnostic Impressions: Echocardiogram 06/26/20 14:07 Transthoracic Echocardiogram Indication: SOB BP: 143/103 HR: 89 Conclusions *The left ventricular chamber size is moderately dilated. *Moderate concentric left ventricular hypertrophy is observed. *Global left ventricular systolic function is severely decreased. *The estimated ejection fraction is 20-25%. *The left atrium is moderately dilated. *There is mild mitral regurgitation. *There is mild aortic regurgitation. *There is trace tricuspid regurgitation. Findings Left Ventricle: The left ventricular chamber size is moderately dilated. Moderate concentric left ventricular hypertrophy is observed. Global left ventricular systolic function is severely decreased. The estimated ejection fraction is 20-25%. Left Atrium: The left atrium is moderately dilated. Right Ventricle: The right ventricle is mildly dilated. Right Atrium: The right atrium is mild to moderately dilated. Aortic Valve: The aortic valve is trileaflet. There is mild aortic regurgitation. There is no evidence of aortic stenosis. Mitral Valve: The mitral valve leaflets are mildly thickened. There is mild mitral regurgitation. There is no evidence of mitral stenosis. Tricuspid Valve: There is trace tricuspid regurgitation. No pulmonary hypertension is noted. Pulmonic Valve: There is trace pulmonic regurgitation. Pericardium: There is no pericardial effusion. Aorta: There is no dilatation of the ascending aorta. There is no dilatation of the aortic root. Venous: The inferior vena cava appears normal in size. Measurements Chambers 2D Name Value Normal Range IVSd (2D) 1.72 cm (0.6 - 1.1) LVPWd (2D) 1.75 cm (0.6 - 1.1) LVIDd (2D) 4.69 cm (3.7 - 5.6) LVIDs (2D) 3.76 cm (2 - 3.8) LV FS (2D) 19.97 % - EF Teichholz (2D) 40.94 % - Ao root diameter (2D) 4.15 cm (2 - 3.7) Volumes/Mass Name Value Normal Range LA ESV SP 4CH (A/L) 110.45 ml - LA ESV SP 2CH (A/L) 92.93 ml - LA ESV BP (A/L) 103.76 ml - LA ESV BP (A/L) index 49.65 ml/m2 - LA ESV SP 4CH (MOD) 104.2 ml - LA ESV SP 2CH (MOD) 88.21 ml - LA ESV BP (MOD) 98 ml - LA ESV BP (MOD) index 46.89 ml/m2 - LV EDV SP 4CH (MOD) 210.4 ml - LV ESV SP 4CH (MOD) 143.88 ml - EF SP 4CH (MOD) 31.62 % - LV EDV SP 2CH (MOD) 221.79 ml - LV ESV SP 2CH (MOD) 132.07 ml - EF SP 2CH (MOD) 40.45 % - LV EDV BP 217.73 ml - LV ESV BP 141.28 ml - BP EF (MOD) 35.11 % - Diastolic/Systolic Function Name Value Normal Range MV E-wave Vmax 1.09 m/sec - MV deceleration time 133.48 msec - MV A-wave Vmax 0.39 m/sec - MV E:A ratio 2.8 ratio - Aortic Valve Name Value Normal Range AV Vmax 1.13 m/sec - AV VTI 18.21 cm - AV peak gradient 5.09 mmHg - AV mean gradient 2.83 mmHg - LVOT diameter 2.23 cm - LVOT Vmax 0.8 m/sec - LVOT VTI 12.25 cm - LVOT peak gradient 2.54 mmHg - LVOT mean gradient 1.39 mmHg - SV LVOT 47.92 ml - STEVE (continuity Vmax) 2.76 cm2 - STEVE (continuity VTI) 2.63 cm2 - AR PHT 948.89 msec - AR peak gradient 29.71 mmHg - Ascending Ao 3.88 cm - Mitral Valve Name Value Normal Range MV PHT 37.6 msec - MVA (PHT) 5.85 cm2 - Tricuspid Valve Name Value Normal Range IVC diameter 1.89 cm (1.2 - 2.3) Pulmonic Valve/Qp:Qs Name Value Normal Range PV Vmax 0.84 m/sec - PV VTI 16.01 cm - PV peak gradient 2.85 mmHg - PV mean gradient 1.5 mmHg - RVOT Vmax 0.66 m/sec - RVOT VTI 10.44 cm - RVOT peak gradient 1.74 mmHg - Hoskins/IV: Voiding Method Urinal IV Catheter Type [Left Hand] INT / Saline Lock Active Medications - Current Medications Current Medications: Generic Name Dose Route Start Last Admin Trade Name Freq PRN Reason Stop Dose Admin Aspirin 81 mg 06/29/20 10:00 07/02/20 10:58 Halfprin Ec PO 81 mg QDAY [facility] Administration Atorvastatin Calcium 40 mg 06/26/20 22:00 07/01/20 21:00 Lipitor PO 40 mg QHS [facility] Administration Doxazosin Mesylate 2 mg 06/28/20 22:00 07/01/20 21:01 Cardura PO 2 mg QHS [facility] Administration Furosemide 40 mg 06/28/20 12:00 07/01/20 09:24 Lasix PO Not Given QDAY [facility] Heparin Sodium (Porcine) 5,000 unit 06/26/20 22:00 07/02/20 10:58 Heparin SUB-Q 5,000 unit Q12HR [facility] Administration Isosorbide Dinitrate/Hydralazine 1 each 06/27/20 12:00 07/02/20 10:58 Bidil 20/37.5mg PO 1 each Q12HR [facility] Administration Lorazepam 1 mg 07/01/20 19:31 07/02/20 08:29 Ativan IM 1 mg Q4H PRN Administration Agitation Metoprolol Tartrate 50 mg 06/28/20 15:00 07/02/20 06:17 Metoprolol PO Not Given Q8HR [facility] Nifedipine 60 mg 06/28/20 13:00 07/02/20 10:58 Procardia Xl PO 60 mg QDAY [facility] Administration Nitroglycerin 0.4 mg 06/26/20 14:04 Nitrostat SL .Q5MIN PRN Chest Pain Spironolactone 25 mg 06/28/20 13:00 07/01/20 09:23 Aldactone PO Not Given QDAY [facility] Nutrition/Malnutrition Assess - Dietary Evaluation Nutrition/Malnutrition Findings: Nutrition Notes Start: 06/27/20 10:31 Freq: Status: Active Protocol: Document 07/01/20 10:46 AT (Rec: 07/01/20 11:10 AT [facility]-[id number]) Co-Sign 07/01/20 10:46 LM Nutrition Notes Need for Assessment generated from: shirt folder Initial or Follow up Assessment Current Diagnosis Acute Kidney Injury, Hypertension,Heart Failure Current Diet Cardiac Labs/Tests BUN 23 Cr 2.3 BG 140 Pertinent Medications Lipitor Lasic Spironolactone Height 6 ft Weight 85.1 kg [place] Body Weight (kg) 80.90 BMI 25.4 Weight change and time frame Pt has lost 2.9% BW since admission (06/26/20). Weight Status Overweight Subjective/Other Information As per RN, pt is refusing most food, but will consume water and applesauce. Pt is confused and refused tray observation and was reticent to discuss nutritional status/hx. Was unable to obtain nutritional hx. Burn Absent Trauma Absent Current % PO Poor (25-49%) Minimum of two criteria No Interpretation of Weight Loss (non- 1-2% in 1 week severe) #1 Nutrition Diagnosis Inadequate energy intake Etiology confusion As Evidenced by Signs and Symptoms reported poor PO intakes, refusal of most foods, and 1-2 % weight loss in 5 days. Is patient on ventilator? No Is Patient Ambulatory and/or Out of Bed Yes [facility] [ 2280.200 [id number]] Additional Notes PRO needs: 68 - 85g (0.8 - 1 g /kg) Fluid Needs: 1,500 mL Nutrition Intervention Change Diet Order: Continue Current Add Supplement/Snack (indicate name/kcal Ensure Enlive daily /protein ) Provides kCal: 350 Provides Protein (gm) 20 Goal #1 Meet 75% of energy and protein needs. Follow-Up By: 07/05/20 Additional Comments F/U for PO and ONS intake.
[2020-07-02] MEDS: SPIRONOLACTONE 25 MG TAB PO SCH (11:54)
[2020-07-02] MEDS: FUROSEMIDE 40 MG TAB PO SCH (11:54)
--- NOTE | 2020-07-02 13:27 | Progress Note ---
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 -MRI/MRA brain is suggestive of subacute infarct in right dominguez and microbleed in left BG -US carotid is pending -fasting lipid profil -Echo with EF#20-25% -Control HTN<140/80 -ASA 325 mg daily -Quite smoking 2- Agitation and or underlying depression/Bipolar disorder.!!! -will start seroquel 50 mg qhs-geodon prn - Psychiatry to see 3-Malignant hypertension -BP was 204 x 148 on admission -Need to have BP<140/80 4-new onset CHF -Patient noted to have elevated BNP and cardiomegaly on chest x-ray -2D echo showed Ef#20-25% -cardiology consult 5-Noncompliance, counseled for medication and dietary compliance 6-Tobacco abuse, counseled to quit 7-BECCA, cannot rule out underlying CKD -Baseline creatinine is unknown, -BUN/Cr#23/2.3 8-Elevated troponin/NSTEMI type II -Likely due to CHF exacerbation and underlying BECCA on CKD 9-Elevated LFT, likely due to hepatic congestion -We will continue to monitor DVT prophylaxis, heparin PLAN 1-ASA 325 mg daily 2-EEG is pending 3-Correct underlying infection,Electrolytes abnormalities 4- Control BP<140/80 5-Fasting lipid profil?? 6-Pt/ST evaluation 7- seroquel 50 mg qhs -and geodon prn -Psychiatry to see 8- Carotid US Neurology to see in Sunday in follow up Subjective Date of service: 07/02/20 Objective - Vital Sign Vital Signs - 12hr 07/02/20 07/02/20 07/02/20 03:25 03:34 07:30 Temperature 98.9 F Pulse Rate 78 78 Respiratory 18 20 Rate Blood Pressure 150/100 Blood Pressure 148/97 [Right] O2 Sat by Pulse 95 Oximetry 07/02/20 08:03 Temperature 98.3 F Pulse Rate 81 Respiratory 20 Rate Blood Pressure 175/116 Blood Pressure [Right] O2 Sat by Pulse 96 Oximetry - General Apperance Constitutional: comfortable - EENT EENT: ATNC - Cardiovascular Cardiovascular: regular rate Extremities: no peripheral edema bilat - Gastrointestinal Gastrointestinal: normoactive bowel sounds - Integumentary Integumentary: normal - Neurologic Cranial nerve examination: other (no focal weakness) Speech examination: intact Detailed motor examination: other (no focal weakness but mild tremor right upper extremity) - Laboratory Findings CBC and BMP: 06/26/20 11:22 06/30/20 05:28 Abnormal Lab Findings: Abnormal Labs 06/26/20 06/26/20 06/26/20 11:22 11:22 11:22 Lymph # 1.0 L Seg Neutrophils % 72.1 H Potassium BUN 24 H Creatinine 2.3 H Glucose 105 H POC Glucose Calcium AST 41 H ALT 58 H Total Creatine Kinase 195 H Troponin T 0.035 H NT-Pro-B Natriuret Pep 7493 H Albumin LDL Cholesterol Direct 44 L HDL Cholesterol 38 L 06/26/20 06/26/20 06/27/20 13:31 19:11 00:13 Lymph # Seg Neutrophils % Potassium BUN Creatinine Glucose POC Glucose Calcium AST ALT Total Creatine Kinase Troponin T 0.035 H 0.037 H 0.048 H D NT-Pro-B Natriuret Pep Albumin LDL Cholesterol Direct HDL Cholesterol 06/27/20 06/27/20 06/28/20 05:39 05:39 07:14 Lymph # Seg Neutrophils % Potassium 3.2 L D BUN 24 H Creatinine 2.4 H Glucose 149 H POC Glucose Calcium 8.3 L AST ALT Total Creatine Kinase Troponin T 0.043 H 0.031 H D NT-Pro-B Natriuret Pep Albumin 3.5 L LDL Cholesterol Direct HDL Cholesterol 06/30/20 06/30/20 05:28 08:11 Lymph # Seg Neutrophils % Potassium BUN 23 H Creatinine 2.3 H Glucose 140 H POC Glucose 107 H Calcium AST ALT Total Creatine Kinase Troponin T NT-Pro-B Natriuret Pep Albumin LDL Cholesterol Direct HDL Cholesterol
--- NOTE | 2020-07-02 17:06 | Vascular Lab Report ---
"DUPLEX DOPPLER ULTRASOUND CAROTID, BILATERAL INDICATION: cva. FINDINGS: RIGHT CAROTID: No significant atherosclerotic plaque. Right CCA velocity: 79.1 cm/sec. Right ICA peak systolic velocity: 42 cm/sec. ICA/CCA PSV Ratio: 0.5. Right Vertebral Artery: Antegrade flow. LEFT CAROTID: No significant atherosclerotic plaque. Left CCA velocity: 70.5 cm/sec. Left ICA peak systolic velocity: 61 cm/sec. ICA/CCA PSV Ratio: 0.87. Left Vertebral Artery: Antegrade flow. IMPRESSION: 1. Right Internal Carotid Artery: Less than 50% diameter stenosis. 2. Left Internal Carotid Artery: Less than 50% diameter stenosis. Velocity criteria are extrapolated from diameter data as defined by the Society of Radiologists in Ul trasound Consensus Conference, Radiology 2003; 229;340-346. Degree of Stenosis (%) || ICA PSV (cm/sec) || Plaque estimate (%) || ICA/CCA PSV Ratio Normal <125 None <2.0 <50 <125 <50 <2.0 50-69 125-230 50 2.0-4.0 70 but less than 100 >230 50 >4.0 Near occlusion High, low, or none visible variable Total occlusion None visible; no lumen N/A Signer Name: Suresh Batres MD Signed: 07/02/2020 5:01 PM Workstation Name: [id number]"
[2020-07-02] MEDS: DOXAZOSIN 1 MG TAB PO SCH (21:03)
[2020-07-03] MEDS: LORazepam 2 MG/ML VIAL IM PRN ×2 (04:51→21:26)
[2020-07-03] MEDS: METOPROLOL TARTRATE 50 MG TAB PO SCH ×4 (04:55→21:10)
[2020-07-03] MEDS: SPIRONOLACTONE 25 MG TAB PO SCH (10:17)
[2020-07-03] MEDS: ISOSORB DINIT/HYDRALAZINE 20-37.5MG TAB PO SCH ×2 (10:17→21:10)
[2020-07-03] MEDS: ASPIRIN EC 81 MG TAB PO SCH (10:18)
[2020-07-03] MEDS: HEPARIN 5,000 UNIT/1 ML VIAL SUB-Q SCH ×2 (10:18→21:10)
[2020-07-03] MEDS: NIFEdipine XL 60 MG TAB PO SCH (10:18)
[2020-07-03] MEDS: FUROSEMIDE 40 MG TAB PO SCH (10:18)
--- NOTE | 2020-07-03 12:11 | Progress Note ---
Assessment and Plan - Patient Problems (1) New onset of congestive heart failure Current Visit: Yes Status: Acute Plan to address problem: Systolic CHF: Strict I's/O, monitor urine output every shift, daily weight, afterload reduction, echocardiogram reveals ejection fraction of 25%. Cardiology team planning LifeVest placement. (2) Noncompliance with medication regimen Current Visit: Yes Status: Acute Plan to address problem: Patient counseled regarding medication noncompliance. Patient knowledges understanding and agreement with care plan. Patient states that he will be compliant with his medication regimen in the future. Patient also reports that he will comply and follow-up with primary care physician on outpatient basis. (3) BECCA (acute kidney injury) Current Visit: Yes Status: Acute Plan to address problem: Strict I's/O, monitor urine output every shift, follow-up PCP within 1 week with repeat BMP. (4) Hypertensive urgency Current Visit: Yes Status: Acute Plan to address problem: Monitor blood pressure every shift, continue medical management. (5) Ventricular tachycardia, non-sustained Current Visit: Yes Status: Acute Plan to address problem: Pending life vest placement. (6) Confusion Current Visit: Yes Status: Acute Plan to address problem: CT Head ordered, Rapid HIV ordered. (7) Encephalopathy Current Visit: Yes Status: Acute Plan to address problem: CT Head, Neuro checks, Neurology consulted for cerebral edema, MRI brain reviewed. Neurology consulted, Rapid HIV results pending. (8) DVT prophylaxis Current Visit: Yes Status: Acute Plan to address problem: SCD to bilateral lower extremities while in bed, patient is ambulatory. History Interval history: 49 YO Male HD #7 with Systolic CHF(EF 25%), Medication Noncompliance, Nicotine Dependence, ETOH Dependence, Agitation. Patient is somewhat confused again today. Patient is intermittently compliant with mediation depending on mood. Patient denies fever, chills, chest pain, palpitations, productive cough. Patient denies complaints. Pt is pending life vest placement as per cardiology team. Hospitalist Physical - Constitutional Vitals: Temp Pulse Resp BP Pulse Ox 97.4 F L 70 18 143/104 100 07/03/20 07:56 07/03/20 07:56 07/03/20 07:56 07/03/20 07:56 07/03/20 07:56 General appearance: Present: no acute distress - EENT Eyes: Present: PERRL, EOM intact ENT: hearing intact - Neck Neck: Present: supple - Respiratory Respiratory: bilateral: CTA - Cardiovascular Rhythm: regular Heart Sounds: Present: S1 & S2 - Extremities Extremities: no ischemia Extremity abnormal: edema Peripheral Pulses: within normal limits - Abdominal General gastrointestinal: soft, non-tender, non-distended - Integumentary Integumentary: Present: clear, dry - Psychiatric Psychiatric: cooperative - Neurologic Neurologic: CNII-XII intact HEART Score - HEART Score Troponin: Troponin T 0.031 ng/mL (0.00-0.029) H D 06/28/20 07:14 Results - Labs CBC & Chem 7: 06/26/20 11:22 06/30/20 05:28 Labs: Laboratory Last Values WBC 4.6 K/mm3 (4.5-11.0) 06/26/20 11:22 RBC 4.20 M/mm3 (3.65-5.03) 06/26/20 11:22 Hgb 12.2 gm/dl (11.8-15.2) 06/26/20 11:22 Hct 35.9 % (35.5-45.6) 06/26/20 11:22 MCV 86 fl (84-94) 06/26/20 11:22 MCH 29 pg (28-32) 06/26/20 11:22 MCHC 34 % (32-34) 06/26/20 11:22 RDW 14.1 % (13.2-15.2) 06/26/20 11:22 Plt Count 146 K/mm3 (140-440) 06/26/20 11:22 Lymph % (Auto) 20.9 % (13.4-35.0) 06/26/20 11:22 [place] % (Auto) 6.0 % (0.0-7.3) 06/26/20 11:22 Eos % (Auto) 0.3 % (0.0-4.3) 06/26/20 11:22 Baso % (Auto) 0.7 % (0.0-1.8) 06/26/20 11:22 Lymph # 1.0 K/mm3 (1.2-5.4) L 06/26/20 11:22 [place] # 0.3 K/mm3 (0.0-0.8) 06/26/20 11:22 Eos # 0.0 K/mm3 (0.0-0.4) 06/26/20 11:22 Baso # 0.0 K/mm3 (0.0-0.1) 06/26/20 11:22 Seg Neutrophils % 72.1 % (40.0-70.0) H 06/26/20 11:22 Seg Neutrophils # 3.3 K/mm3 (1.8-7.7) 06/26/20 11:22 Sodium 143 mmol/L (137-145) 06/30/20 05:28 Potassium 3.7 mmol/L (3.6-5.0) 06/30/20 05:28 Chloride 101.9 mmol/L (98-107) 06/30/20 05:28 Carbon Dioxide 27 mmol/L (22-30) 06/30/20 05:28 Anion Gap 18 mmol/L 06/30/20 05:28 BUN 23 mg/dL (9-20) H 06/30/20 05:28 Creatinine 2.3 mg/dL (0.8-1.3) H 06/30/20 05:28 Estimated GFR 37 ml/min 06/30/20 05:28 BUN/Creatinine Ratio 10 % 06/30/20 05:28 Glucose 140 mg/dL (75-100) H 06/30/20 05:28 POC Glucose 107 (70-105) H 06/30/20 08:11 Calcium 8.9 mg/dL (8.4-10.2) 06/30/20 05:28 Magnesium 2.10 mg/dL (1.7-2.3) 06/30/20 05:28 Total Bilirubin 0.50 mg/dL (0.1-1.2) 06/27/20 05:39 Direct Bilirubin < 0.2 mg/dL (0-0.2) 06/27/20 05:39 Indirect Bilirubin 0.3 mg/dL 06/27/20 05:39 AST 32 units/L (5-40) 06/27/20 05:39 ALT 54 units/L (7-56) 06/27/20 05:39 Alkaline Phosphatase 66 units/L (35-129) 06/27/20 05:39 Total Creatine Kinase 195 units/L (55-170) H 06/26/20 11:22 Troponin T 0.031 ng/mL (0.00-0.029) H D 06/28/20 07:14 NT-Pro-B Natriuret Pep 7493 pg/mL (0-450) H 06/26/20 11:22 Total Protein 6.5 g/dL (6.3-8.2) 06/27/20 05:39 Albumin 3.5 g/dL (3.9-5) L 06/27/20 05:39 Albumin/Globulin Ratio 1.2 % 06/27/20 05:39 Triglycerides 88 mg/dL (2-149) 06/26/20 11:22 Cholesterol 90 mg/dL (50-199) 06/26/20 11:22 LDL Cholesterol Direct 44 mg/dL (50-130) L 06/26/20 11:22 HDL Cholesterol 38 mg/dL (40-59) L 06/26/20 11:22 Cholesterol/HDL Ratio 2.36 % 06/26/20 11:22 - Diagnostic Impressions Diagnostic Impressions: Echocardiogram 06/26/20 14:07 Transthoracic Echocardiogram Indication: SOB BP: 143/103 HR: 89 Conclusions *The left ventricular chamber size is moderately dilated. *Moderate concentric left ventricular hypertrophy is observed. *Global left ventricular systolic function is severely decreased. *The estimated ejection fraction is 20-25%. *The left atrium is moderately dilated. *There is mild mitral regurgitation. *There is mild aortic regurgitation. *There is trace tricuspid regurgitation. Findings Left Ventricle: The left ventricular chamber size is moderately dilated. Moderate concentric left ventricular hypertrophy is observed. Global left ventricular systolic function is severely decreased. The estimated ejection fraction is 20-25%. Left Atrium: The left atrium is moderately dilated. Right Ventricle: The right ventricle is mildly dilated. Right Atrium: The right atrium is mild to moderately dilated. Aortic Valve: The aortic valve is trileaflet. There is mild aortic regurgitation. There is no evidence of aortic stenosis. Mitral Valve: The mitral valve leaflets are mildly thickened. There is mild mitral regurgitation. There is no evidence of mitral stenosis. Tricuspid Valve: There is trace tricuspid regurgitation. No pulmonary hypertension is noted. Pulmonic Valve: There is trace pulmonic regurgitation. Pericardium: There is no pericardial effusion. Aorta: There is no dilatation of the ascending aorta. There is no dilatation of the aortic root. Venous: The inferior vena cava appears normal in size. Measurements Chambers 2D Name Value Normal Range IVSd (2D) 1.72 cm (0.6 - 1.1) LVPWd (2D) 1.75 cm (0.6 - 1.1) LVIDd (2D) 4.69 cm (3.7 - 5.6) LVIDs (2D) 3.76 cm (2 - 3.8) LV FS (2D) 19.97 % - EF Teichholz (2D) 40.94 % - Ao root diameter (2D) 4.15 cm (2 - 3.7) Volumes/Mass Name Value Normal Range LA ESV SP 4CH (A/L) 110.45 ml - LA ESV SP 2CH (A/L) 92.93 ml - LA ESV BP (A/L) 103.76 ml - LA ESV BP (A/L) index 49.65 ml/m2 - LA ESV SP 4CH (MOD) 104.2 ml - LA ESV SP 2CH (MOD) 88.21 ml - LA ESV BP (MOD) 98 ml - LA ESV BP (MOD) index 46.89 ml/m2 - LV EDV SP 4CH (MOD) 210.4 ml - LV ESV SP 4CH (MOD) 143.88 ml - EF SP 4CH (MOD) 31.62 % - LV EDV SP 2CH (MOD) 221.79 ml - LV ESV SP 2CH (MOD) 132.07 ml - EF SP 2CH (MOD) 40.45 % - LV EDV BP 217.73 ml - LV ESV BP 141.28 ml - BP EF (MOD) 35.11 % - Diastolic/Systolic Function Name Value Normal Range MV E-wave Vmax 1.09 m/sec - MV deceleration time 133.48 msec - MV A-wave Vmax 0.39 m/sec - MV E:A ratio 2.8 ratio - Aortic Valve Name Value Normal Range AV Vmax 1.13 m/sec - AV VTI 18.21 cm - AV peak gradient 5.09 mmHg - AV mean gradient 2.83 mmHg - LVOT diameter 2.23 cm - LVOT Vmax 0.8 m/sec - LVOT VTI 12.25 cm - LVOT peak gradient 2.54 mmHg - LVOT mean gradient 1.39 mmHg - SV LVOT 47.92 ml - STEVE (continuity Vmax) 2.76 cm2 - STEVE (continuity VTI) 2.63 cm2 - AR PHT 948.89 msec - AR peak gradient 29.71 mmHg - Ascending Ao 3.88 cm - Mitral Valve Name Value Normal Range MV PHT 37.6 msec - MVA (PHT) 5.85 cm2 - Tricuspid Valve Name Value Normal Range IVC diameter 1.89 cm (1.2 - 2.3) Pulmonic Valve/Qp:Qs Name Value Normal Range PV Vmax 0.84 m/sec - PV VTI 16.01 cm - PV peak gradient 2.85 mmHg - PV mean gradient 1.5 mmHg - RVOT Vmax 0.66 m/sec - RVOT VTI 10.44 cm - RVOT peak gradient 1.74 mmHg - Hoskins/IV: Voiding Method Urinal IV Catheter Type [Left Hand] INT / Saline Lock Active Medications - Current Medications Current Medications: Generic Name Dose Route Start Last Admin Trade Name Freq PRN Reason Stop Dose Admin Aspirin 81 mg 06/29/20 10:00 07/03/20 10:18 Halfprin Ec PO 81 mg QDAY NUHA Administration Atorvastatin Calcium 40 mg 06/26/20 22:00 07/02/20 21:04 Lipitor PO 40 mg QHS NUHA Administration Doxazosin Mesylate 2 mg 06/28/20 22:00 07/02/20 21:03 Cardura PO 2 mg QHS NUHA Administration Furosemide 40 mg 06/28/20 12:00 07/03/20 10:18 Lasix PO 40 mg QDAY NUHA Administration Heparin Sodium (Porcine) 5,000 unit 06/26/20 22:00 07/03/20 10:18 Heparin SUB-Q 5,000 unit Q12HR NUHA Administration Isosorbide Dinitrate/Hydralazine 1 each 06/27/20 12:00 07/03/20 10:17 Bidil 20/37.5mg PO 1 each Q12HR NUHA Administration Lorazepam 1 mg 07/01/20 19:31 07/03/20 04:51 Ativan IM 1 mg Q4H PRN Administration Agitation Metoprolol Tartrate 50 mg 06/28/20 15:00 07/03/20 06:29 Metoprolol PO Not Given Q8HR NUHA Nifedipine 60 mg 06/28/20 13:00 07/03/20 10:18 Procardia Xl PO 60 mg QDAY NUHA Administration Nitroglycerin 0.4 mg 06/26/20 14:04 Nitrostat SL .Q5MIN PRN Chest Pain Spironolactone 25 mg 06/28/20 13:00 07/03/20 10:17 Aldactone PO 25 mg QDAY NUHA Administration Nutrition/Malnutrition Assess - Dietary Evaluation Nutrition/Malnutrition Findings: Nutrition Notes Start: 06/27/20 10:31 Freq: Status: Active Protocol: Document 07/01/20 10:46 AT (Rec: 07/01/20 11:10 AT [id number]) Co-Sign 07/01/20 10:46 LM Nutrition Notes Need for Assessment generated from: bed operator Initial or Follow up Assessment Current Diagnosis Acute Kidney Injury, Hypertension,Heart Failure Current Diet Cardiac Labs/Tests BUN 23 Cr 2.3 BG 140 Pertinent Medications Lipitor Lasic Spironolactone Height 6 ft Weight 85.1 kg [place] Body Weight (kg) 80.90 BMI 25.4 Weight change and time frame Pt has lost 2.9% BW since admission (06/26/20). Weight Status Overweight Subjective/Other Information As per RN, pt is refusing most food, but will consume water and applesauce. Pt is confused and refused tray observation and was reticent to discuss nutritional status/hx. Was unable to obtain nutritional hx. Burn Absent Trauma Absent Current % PO Poor (25-49%) Minimum of two criteria No Interpretation of Weight Loss (non- 1-2% in 1 week severe) #1 Nutrition Diagnosis Inadequate energy intake Etiology confusion As Evidenced by Signs and Symptoms reported poor PO intakes, refusal of most foods, and 1-2 % weight loss in 5 days. Is patient on ventilator? No Is Patient Ambulatory and/or Out of Bed Yes REE-([place]-St. Jeor-ambulatory/OOB) [ 2280.200 [id number]] Additional Notes PRO needs: 68 - 85g (0.8 - 1 g /kg) Fluid Needs: 1,500 mL Nutrition Intervention Change Diet Order: Continue Current Add Supplement/Snack (indicate name/kcal Ensure Enlive daily /protein ) Provides kCal: 350 Provides Protein (gm) 20 Goal #1 Meet 75% of energy and protein needs. Follow-Up By: 07/05/20 Additional Comments F/U for PO and ONS intake.
--- NOTE | 2020-07-03 20:03 | Progress Note ---
Assessment and Plan - Patient Problems (1) New onset of congestive heart failure Current Visit: Yes Status: Acute Plan to address problem: Systolic CHF: Strict I's/O, monitor urine output every shift, daily weight, afterload reduction, echocardiogram reveals ejection fraction of 25%. Cardiology team planning LifeVest placement. (2) Noncompliance with medication regimen Current Visit: Yes Status: Acute Plan to address problem: Patient counseled regarding medication noncompliance. Patient knowledges understanding and agreement with care plan. Patient states that he will be compliant with his medication regimen in the future. Patient also reports that he will comply and follow-up with primary care physician on outpatient basis. (3) BECCA (acute kidney injury) Current Visit: Yes Status: Acute Plan to address problem: Strict I's/O, monitor urine output every shift, follow-up PCP within 1 week with repeat BMP. (4) Hypertensive urgency Current Visit: Yes Status: Acute Plan to address problem: Monitor blood pressure every shift, continue medical management. (5) Ventricular tachycardia, non-sustained Current Visit: Yes Status: Acute Plan to address problem: Pending life vest placement. (6) Confusion Current Visit: Yes Status: Acute Plan to address problem: CT Head ordered, Rapid HIV ordered. (7) Encephalopathy Current Visit: Yes Status: Acute Plan to address problem: CT Head, Neuro checks, Neurology consulted for cerebral edema, MRI brain reviewed. Neurology consulted, Rapid HIV results pending. (8) DVT prophylaxis Current Visit: Yes Status: Acute Plan to address problem: SCD to bilateral lower extremities while in bed, patient is ambulatory. History Interval history: 49 YO Male HD #8 with Systolic CHF(EF 25%), Medication Noncompliance, Nicotine Dependence, ETOH Dependence, Agitation. Patient is resting comfortably today. Patient is intermittently compliant with mediation depending on mood. Patient denies fever, chills, chest pain, palpitations, productive cough. Patient denies complaints. Pt is pending life vest placement as per cardiology team. Hospitalist Physical - Constitutional Vitals: Temp Pulse Resp BP Pulse Ox 97.9 F 80 18 119/82 95 07/03/20 17:05 07/03/20 17:05 07/03/20 17:05 07/03/20 17:05 07/03/20 17:05 General appearance: Present: no acute distress - EENT Eyes: Present: PERRL, EOM intact ENT: hearing intact - Neck Neck: Present: supple - Respiratory Respiratory effort: normal Respiratory: bilateral: CTA - Cardiovascular Rhythm: regular Heart Sounds: Present: S1 & S2 - Extremities Extremities: no ischemia Extremity abnormal: edema Peripheral Pulses: within normal limits - Abdominal General gastrointestinal: soft, non-tender, non-distended - Integumentary Integumentary: Present: clear, dry - Psychiatric Psychiatric: cooperative - Neurologic Neurologic: CNII-XII intact HEART Score - HEART Score Troponin: Troponin T 0.031 ng/mL (0.00-0.029) H D 06/28/20 07:14 Results - Labs CBC & Chem 7: 06/26/20 11:22 06/30/20 05:28 Labs: Laboratory Last Values WBC 4.6 K/mm3 (4.5-11.0) 06/26/20 11:22 RBC 4.20 M/mm3 (3.65-5.03) 06/26/20 11:22 Hgb 12.2 gm/dl (11.8-15.2) 06/26/20 11:22 Hct 35.9 % (35.5-45.6) 06/26/20 11:22 MCV 86 fl (84-94) 06/26/20 11:22 MCH 29 pg (28-32) 06/26/20 11:22 MCHC 34 % (32-34) 06/26/20 11:22 RDW 14.1 % (13.2-15.2) 06/26/20 11:22 Plt Count 146 K/mm3 (140-440) 06/26/20 11:22 Lymph % (Auto) 20.9 % (13.4-35.0) 06/26/20 11:22 Spencer % (Auto) 6.0 % (0.0-7.3) 06/26/20 11:22 Eos % (Auto) 0.3 % (0.0-4.3) 06/26/20 11:22 Baso % (Auto) 0.7 % (0.0-1.8) 06/26/20 11:22 Lymph # 1.0 K/mm3 (1.2-5.4) L 06/26/20 11:22 Spencer # 0.3 K/mm3 (0.0-0.8) 06/26/20 11:22 Eos # 0.0 K/mm3 (0.0-0.4) 06/26/20 11:22 Baso # 0.0 K/mm3 (0.0-0.1) 06/26/20 11:22 Seg Neutrophils % 72.1 % (40.0-70.0) H 06/26/20 11:22 Seg Neutrophils # 3.3 K/mm3 (1.8-7.7) 06/26/20 11:22 Sodium 143 mmol/L (137-145) 06/30/20 05:28 Potassium 3.7 mmol/L (3.6-5.0) 06/30/20 05:28 Chloride 101.9 mmol/L (98-107) 06/30/20 05:28 Carbon Dioxide 27 mmol/L (22-30) 06/30/20 05:28 Anion Gap 18 mmol/L 06/30/20 05:28 BUN 23 mg/dL (9-20) H 06/30/20 05:28 Creatinine 2.3 mg/dL (0.8-1.3) H 06/30/20 05:28 Estimated GFR 37 ml/min 06/30/20 05:28 BUN/Creatinine Ratio 10 % 06/30/20 05:28 Glucose 140 mg/dL (75-100) H 06/30/20 05:28 POC Glucose 107 (70-105) H 06/30/20 08:11 Calcium 8.9 mg/dL (8.4-10.2) 06/30/20 05:28 Magnesium 2.10 mg/dL (1.7-2.3) 06/30/20 05:28 Total Bilirubin 0.50 mg/dL (0.1-1.2) 06/27/20 05:39 Direct Bilirubin < 0.2 mg/dL (0-0.2) 06/27/20 05:39 Indirect Bilirubin 0.3 mg/dL 06/27/20 05:39 AST 32 units/L (5-40) 06/27/20 05:39 ALT 54 units/L (7-56) 06/27/20 05:39 Alkaline Phosphatase 66 units/L (35-129) 06/27/20 05:39 Total Creatine Kinase 195 units/L (55-170) H 06/26/20 11:22 Troponin T 0.031 ng/mL (0.00-0.029) H D 06/28/20 07:14 NT-Pro-B Natriuret Pep 7493 pg/mL (0-450) H 06/26/20 11:22 Total Protein 6.5 g/dL (6.3-8.2) 06/27/20 05:39 Albumin 3.5 g/dL (3.9-5) L 06/27/20 05:39 Albumin/Globulin Ratio 1.2 % 06/27/20 05:39 Triglycerides 88 mg/dL (2-149) 06/26/20 11:22 Cholesterol 90 mg/dL (50-199) 06/26/20 11:22 LDL Cholesterol Direct 44 mg/dL (50-130) L 06/26/20 11:22 HDL Cholesterol 38 mg/dL (40-59) L 06/26/20 11:22 Cholesterol/HDL Ratio 2.36 % 06/26/20 11:22 - Diagnostic Impressions Diagnostic Impressions: Echocardiogram 06/26/20 14:07 Transthoracic Echocardiogram Indication: SOB BP: 143/103 HR: 89 Conclusions *The left ventricular chamber size is moderately dilated. *Moderate concentric left ventricular hypertrophy is observed. *Global left ventricular systolic function is severely decreased. *The estimated ejection fraction is 20-25%. *The left atrium is moderately dilated. *There is mild mitral regurgitation. *There is mild aortic regurgitation. *There is trace tricuspid regurgitation. Findings Left Ventricle: The left ventricular chamber size is moderately dilated. Moderate concentric left ventricular hypertrophy is observed. Global left ventricular systolic function is severely decreased. The estimated ejection fraction is 20-25%. Left Atrium: The left atrium is moderately dilated. Right Ventricle: The right ventricle is mildly dilated. Right Atrium: The right atrium is mild to moderately dilated. Aortic Valve: The aortic valve is trileaflet. There is mild aortic regurgitation. There is no evidence of aortic stenosis. Mitral Valve: The mitral valve leaflets are mildly thickened. There is mild mitral regurgitation. There is no evidence of mitral stenosis. Tricuspid Valve: There is trace tricuspid regurgitation. No pulmonary hypertension is noted. Pulmonic Valve: There is trace pulmonic regurgitation. Pericardium: There is no pericardial effusion. Aorta: There is no dilatation of the ascending aorta. There is no dilatation of the aortic root. Venous: The inferior vena cava appears normal in size. Measurements Chambers 2D Name Value Normal Range IVSd (2D) 1.72 cm (0.6 - 1.1) LVPWd (2D) 1.75 cm (0.6 - 1.1) LVIDd (2D) 4.69 cm (3.7 - 5.6) LVIDs (2D) 3.76 cm (2 - 3.8) LV FS (2D) 19.97 % - EF Teichholz (2D) 40.94 % - Ao root diameter (2D) 4.15 cm (2 - 3.7) Volumes/Mass Name Value Normal Range LA ESV SP 4CH (A/L) 110.45 ml - LA ESV SP 2CH (A/L) 92.93 ml - LA ESV BP (A/L) 103.76 ml - LA ESV BP (A/L) index 49.65 ml/m2 - LA ESV SP 4CH (MOD) 104.2 ml - LA ESV SP 2CH (MOD) 88.21 ml - LA ESV BP (MOD) 98 ml - LA ESV BP (MOD) index 46.89 ml/m2 - LV EDV SP 4CH (MOD) 210.4 ml - LV ESV SP 4CH (MOD) 143.88 ml - EF SP 4CH (MOD) 31.62 % - LV EDV SP 2CH (MOD) 221.79 ml - LV ESV SP 2CH (MOD) 132.07 ml - EF SP 2CH (MOD) 40.45 % - LV EDV BP 217.73 ml - LV ESV BP 141.28 ml - BP EF (MOD) 35.11 % - Diastolic/Systolic Function Name Value Normal Range MV E-wave Vmax 1.09 m/sec - MV deceleration time 133.48 msec - MV A-wave Vmax 0.39 m/sec - MV E:A ratio 2.8 ratio - Aortic Valve Name Value Normal Range AV Vmax 1.13 m/sec - AV VTI 18.21 cm - AV peak gradient 5.09 mmHg - AV mean gradient 2.83 mmHg - LVOT diameter 2.23 cm - LVOT Vmax 0.8 m/sec - LVOT VTI 12.25 cm - LVOT peak gradient 2.54 mmHg - LVOT mean gradient 1.39 mmHg - SV LVOT 47.92 ml - STEVE (continuity Vmax) 2.76 cm2 - STEVE (continuity VTI) 2.63 cm2 - AR PHT 948.89 msec - AR peak gradient 29.71 mmHg - Ascending Ao 3.88 cm - Mitral Valve Name Value Normal Range MV PHT 37.6 msec - MVA (PHT) 5.85 cm2 - Tricuspid Valve Name Value Normal Range IVC diameter 1.89 cm (1.2 - 2.3) Pulmonic Valve/Qp:Qs Name Value Normal Range PV Vmax 0.84 m/sec - PV VTI 16.01 cm - PV peak gradient 2.85 mmHg - PV mean gradient 1.5 mmHg - RVOT Vmax 0.66 m/sec - RVOT VTI 10.44 cm - RVOT peak gradient 1.74 mmHg - Hoskins/IV: Voiding Method Urinal IV Catheter Type [Left Hand] INT / Saline Lock Active Medications - Current Medications Current Medications: Generic Name Dose Route Start Last Admin Trade Name Freq PRN Reason Stop Dose Admin Aspirin 81 mg 06/29/20 10:00 07/03/20 10:18 Halfprin Ec PO 81 mg QDAY NUHA Administration Atorvastatin Calcium 40 mg 06/26/20 22:00 07/02/20 21:04 Lipitor PO 40 mg QHS NUHA Administration Doxazosin Mesylate 2 mg 06/28/20 22:00 07/02/20 21:03 Cardura PO 2 mg QHS NUHA Administration Furosemide 40 mg 06/28/20 12:00 07/03/20 10:18 Lasix PO 40 mg QDAY NUHA Administration Heparin Sodium (Porcine) 5,000 unit 06/26/20 22:00 07/03/20 10:18 Heparin SUB-Q 5,000 unit Q12HR NUHA Administration Isosorbide Dinitrate/Hydralazine 1 each 06/27/20 12:00 07/03/20 10:17 Bidil 20/37.5mg PO 1 each Q12HR NUHA Administration Lorazepam 1 mg 07/01/20 19:31 07/03/20 04:51 Ativan IM 1 mg Q4H PRN Administration Agitation Metoprolol Tartrate 50 mg 06/28/20 15:00 07/03/20 13:58 Metoprolol PO 50 mg Q8HR NUHA Administration Nifedipine 60 mg 06/28/20 13:00 07/03/20 10:18 Procardia Xl PO 60 mg QDAY NUHA Administration Nitroglycerin 0.4 mg 06/26/20 14:04 Nitrostat SL .Q5MIN PRN Chest Pain Spironolactone 25 mg 06/28/20 13:00 07/03/20 10:17 Aldactone PO 25 mg QDAY NUHA Administration Nutrition/Malnutrition Assess - Dietary Evaluation Nutrition/Malnutrition Findings: Nutrition Notes Start: 06/27/20 10:31 Freq: Status: Active Protocol: Document 07/01/20 10:46 AT (Rec: 07/01/20 11:10 AT [facility]-[id number]) Co-Sign 07/01/20 10:46 LM Nutrition Notes Need for Assessment generated from: head housekeeper Initial or Follow up Assessment Current Diagnosis Acute Kidney Injury, Hypertension,Heart Failure Current Diet Cardiac Labs/Tests BUN 23 Cr 2.3 BG 140 Pertinent Medications Lipitor Lasic Spironolactone Height 6 ft Weight 85.1 kg Victoria Body Weight (kg) 80.90 BMI 25.4 Weight change and time frame Pt has lost 2.9% BW since admission (06/26/20). Weight Status Overweight Subjective/Other Information As per RN, pt is refusing most food, but will consume water and applesauce. Pt is confused and refused tray observation and was reticent to discuss nutritional status/hx. Was unable to obtain nutritional hx. Burn Absent Trauma Absent Current % PO Poor (25-49%) Minimum of two criteria No Interpretation of Weight Loss (non- 1-2% in 1 week severe) #1 Nutrition Diagnosis Inadequate energy intake Etiology confusion As Evidenced by Signs and Symptoms reported poor PO intakes, refusal of most foods, and 1-2 % weight loss in 5 days. Is patient on ventilator? No Is Patient Ambulatory and/or Out of Bed Yes REE-(Mckenzie-St. or-ambulatory/OOB) [ 2280.200 [id number]] Additional Notes PRO needs: 68 - 85g (0.8 - 1 g /kg) Fluid Needs: 1,500 mL Nutrition Intervention Change Diet Order: Continue Current Add Supplement/Snack (indicate name/kcal Ensure Enlive daily /protein ) Provides kCal: 350 Provides Protein (gm) 20 Goal #1 Meet 75% of energy and protein needs. Follow-Up By: 07/05/20 Additional Comments F/U for PO and ONS intake.
[2020-07-03] MEDS: DOXAZOSIN 1 MG TAB PO SCH (21:10)
[2020-07-04] MEDS: METOPROLOL TARTRATE 50 MG TAB PO SCH ×3 (05:19→21:36)
[2020-07-04] MEDS: ASPIRIN EC 81 MG TAB PO SCH (09:08)
[2020-07-04] MEDS: FUROSEMIDE 40 MG TAB PO SCH (09:09)
[2020-07-04] MEDS: SPIRONOLACTONE 25 MG TAB PO SCH (09:09)
[2020-07-04] MEDS: ISOSORB DINIT/HYDRALAZINE 20-37.5MG TAB PO SCH ×2 (09:09→21:38)
[2020-07-04] MEDS: NIFEdipine XL 60 MG TAB PO SCH (09:09)
[2020-07-04] MEDS: HEPARIN 5,000 UNIT/1 ML VIAL SUB-Q SCH ×2 (09:09→21:38)
--- NOTE | 2020-07-04 09:31 | Consultation ---
History of Present Illness - Reason for Consult Consult date: 07/04/20 Reason for consult: MHE Requesting physician: CAPO LEIGH - Chief Complaint Chief complaint: SOB - History of Present Psychiatric Illness Per ED Provider: Patient is a 49-year-old male presents emergency room complaints of shortness of breath that significantly worsened last night. Patient states that when he laid down he felt like he was going to . He states that he has been feeling shortness of breath over the last couple of months but it became acutely worse last night. He has associated orthopnea. Patient states that he has not been able to sleep for the last 2 months secondary to the orthopnea. He denies any chest pain, nausea, vomiting, diarrhea, fever, cough, leg swelling. He states that he tested negative for COVID last week. He is a current smoker. He endorses alcohol use every other day. He denies any past medical history. He states he has not seen a primary care physician since 2010. He states that he has not had his blood pressure checked since approximately 2016. No allergies to medications. PSYCH HPI Patient is a 49 year old Male with unknown past psychiatric history and medical history admitted to facility for cardiomyopathy CHF who developed AMS while in hospital. Patient seen in room today, was smilling and attempted to embrace me, says I look like a friend of his. Patient is alert to place, and year, says he was admitted because they think he has heart issues. Patient then requested to use rest room but defeacated all over himself while going to rest room. Still was laughing, appears unbothered. Patient is confused, and disorganized. Medical record reviewed. REVIEW OF SYSTEMS ROS cannot be reliably obtained from the patient due to his confusion and somnolence. MENTAL STATUS EXAMINATION General Appearance and Behavior: Age appropriate, good hygiene, wearing appropriate clothes, lying in bed, good eye contact, uncooperative polite with questioning. Cooperation: withdrawn Psychomotor Behavior:psychomotor retardation Mood:n/a Affect and affective range: confused Thought Process: Loose associations Thought Content: Illogical Speech: Normal volume, Regular rate and rhythm Intellectual Functioning: Poor Suicidal Ideation: Homicidal Ideation: Impulse Control: Impaired Insight and Judgment: Impaired Memory: impaired Attention: Divided attention impaired Orientation: confused, delirious Assessment and Plan - Psychiatric problem (1) Delirium due to another medical condition Current Visit: Yes Status: Acute (2) Multiple comorbid conditions Current Visit: Yes Status: Acute (3) Encephalopathy Current Visit: Yes Status: Acute Treatment Plan Multiple comorbidity, reviewed MRI imaging, acute infarct noted, cardiomyopathy all contributing acute delirium due to medical condition with contributing microvascular cerebral disease MEDICATIONS: Haldol 1mg BID, with olazanpine QHS 2.5 mg until confusion resolves. To be discontinued upon discharge. Risks, benefits and alternatives of medications discussed with the patient, questions answered and consent obtained from patient. PSYCHOTHERAPY: Supportive psychotherapy provided MEDICAL: Per primary team DELIRIUM PRECAUTIONS: Please re-orient patient frequently, keep lights on during the day, and minimize benzodiazepines and opiates as these medications could worsen patient's confusion. GREY ROLL MAN: DISPOSITION: Do Not Recommend acute inpatient psychiatric hospitalization at this time LEGAL STATUS: Voluntary FOLLOW-UP: Will sign off Thank you for the consult. Please contact with any questions and/or concerns. Medications and Allergies Allergies Allergy/AdvReac Type Severity Reaction Status Date / Time No Known Allergies Allergy Unverified 06/26/20 09:55 Home Medications Medication Instructions Recorded Confirmed Last Taken Type Aspirin 325 mg PO QDAY #30 tablet 06/28/20 Unknown Rx AtorvaSTATin [Lipitor] 40 mg PO QHS #30 tablet 06/28/20 Unknown Rx Furosemide [Lasix TAB] 40 mg PO 0600,1800 #60 tablet 06/28/20 Unknown Rx Isosorb Dinit/Hydralazine [Bidil 1 each PO Q12HR #60 tablet 06/28/20 Unknown Rx 20/37.5MG] Potassium Chloride [K-Dur] 40 meq PO Q12HR #60 tablet 06/28/20 Unknown Rx amLODIPine 10 mg PO QDAY #30 tablet 06/28/20 Unknown Rx carvediloL [Coreg] 6.25 mg PO BID #60 tablet 06/28/20 Unknown Rx Active Meds: Active Medications Aspirin (Halfprin Ec) 81 mg PO QDAY [facility] Last Admin: 07/04/20 09:08 Dose: 81 mg Documented by: Atorvastatin Calcium (Lipitor) 40 mg PO QHS [facility] Last Admin: 07/03/20 21:10 Dose: 40 mg Documented by: Doxazosin Mesylate (Cardura) 2 mg PO QHS [facility] Last Admin: 07/03/20 21:10 Dose: 2 mg Documented by: Furosemide (Lasix) 40 mg PO QDAY [facility] Last Admin: 07/04/20 09:09 Dose: 40 mg Documented by: Heparin Sodium (Porcine) (Heparin) 5,000 unit SUB-Q Q12HR [facility] Last Admin: 07/04/20 09:09 Dose: 5,000 unit Documented by: Isosorbide Dinitrate/Hydralazine (Bidil 20/37.5mg) 1 each PO Q12HR [facility] Last Admin: 07/04/20 09:09 Dose: 1 each Documented by: Lorazepam (Ativan) 1 mg IM Q4H PRN PRN Reason: Agitation Last Admin: 07/03/20 21:26 Dose: 1 mg Documented by: Metoprolol Tartrate (Metoprolol) 50 mg PO Q8HR [facility] Last Admin: 07/04/20 05:19 Dose: 50 mg Documented by: Nifedipine (Procardia Xl) 60 mg PO QDAY [facility] Last Admin: 07/04/20 09:09 Dose: 60 mg Documented by: Nitroglycerin (Nitrostat) 0.4 mg SL .Q5MIN PRN PRN Reason: Chest Pain Spironolactone (Aldactone) 25 mg PO QDAY [facility] Last Admin: 07/04/20 09:09 Dose: 25 mg Documented by: Mental Status Exam - Vital signs Last Vital Signs Temp 98.0 F 07/04/20 03:53 Pulse 72 07/04/20 03:53 Resp 18 07/04/20 03:53 BP 170/119 07/04/20 05:19 Pulse Ox 98 07/04/20 03:53 Results Result Diagrams: 06/26/20 11:22 06/30/20 05:28 All other labs normal. Assessment and Plan - Psychiatric problem (1) Delirium due to another medical condition Current Visit: Yes Status: Acute (2) Multiple comorbid conditions Current Visit: Yes Status: Acute (3) Encephalopathy Current Visit: Yes Status: Acute
[2020-07-04] MEDS ORDERED: ZIPRASIDONE MESYLATE 20 MG VIAL IM PRN ×2 (09:51→10:15)
[2020-07-04] MEDS ORDERED: LORazepam 2 MG/ML VIAL IM PRN (10:15)
--- NOTE | 2020-07-04 20:40 | Progress Note ---
Assessment and Plan - Patient Problems (1) New onset of congestive heart failure Current Visit: Yes Status: Acute Plan to address problem: Systolic CHF: Strict I's/O, monitor urine output every shift, daily weight, afterload reduction, echocardiogram reveals ejection fraction of 25%. Cardiology team planning LifeVest placement. (2) Noncompliance with medication regimen Current Visit: Yes Status: Acute Plan to address problem: Patient counseled regarding medication noncompliance. Patient knowledges understanding and agreement with care plan. Patient states that he will be compliant with his medication regimen in the future. Patient also reports that he will comply and follow-up with primary care physician on outpatient basis. (3) BECCA (acute kidney injury) Current Visit: Yes Status: Acute Plan to address problem: Strict I's/O, monitor urine output every shift, follow-up PCP within 1 week with repeat BMP. (4) Hypertensive urgency Current Visit: Yes Status: Acute Plan to address problem: Monitor blood pressure every shift, continue medical management. (5) Ventricular tachycardia, non-sustained Current Visit: Yes Status: Acute Plan to address problem: Pending life vest placement. (6) Confusion Current Visit: Yes Status: Acute Plan to address problem: CT Head ordered, Rapid HIV ordered. (7) Encephalopathy Current Visit: Yes Status: Acute Plan to address problem: CT Head, Neuro checks, Neurology consulted for cerebral edema, MRI brain reviewed. Neurology consulted, Rapid HIV results pending. (8) DVT prophylaxis Current Visit: Yes Status: Acute Plan to address problem: SCD to bilateral lower extremities while in bed, patient is ambulatory. History Interval history: 49 YO Male HD #9 with Systolic CHF(EF 25%), Medication Noncompliance, Nicotine Dependence, ETOH Dependence, Agitation. Patient is resting comfortably today. Patient is intermittently compliant with mediation depending on mood. Patient denies fever, chills, chest pain, palpitations, productive cough. Patient denies complaints. Pt is awaiting life vest placement as per cardiology team. Hospitalist Physical - Constitutional Vitals: Temp Pulse Resp BP Pulse Ox 98.1 F 74 18 151/105 98 07/04/20 19:13 07/04/20 19:13 07/04/20 16:43 07/04/20 19:13 07/04/20 19:13 General appearance: Present: no acute distress - EENT Eyes: Present: PERRL, EOM intact ENT: hearing intact - Neck Neck: Present: supple - Respiratory Respiratory: bilateral: CTA - Cardiovascular Rhythm: regular Heart Sounds: Present: S1 & S2 - Extremities Extremities: no ischemia Extremity abnormal: edema Peripheral Pulses: within normal limits - Abdominal General gastrointestinal: soft, non-tender, non-distended - Integumentary Integumentary: Present: clear, dry - Psychiatric Psychiatric: cooperative - Neurologic Neurologic: CNII-XII intact HEART Score - HEART Score Troponin: Troponin T 0.031 ng/mL (0.00-0.029) H D 06/28/20 07:14 Results - Labs CBC & Chem 7: 06/26/20 11:22 06/30/20 05:28 Labs: Laboratory Last Values WBC 4.6 K/mm3 (4.5-11.0) 06/26/20 11:22 RBC 4.20 M/mm3 (3.65-5.03) 06/26/20 11:22 Hgb 12.2 gm/dl (11.8-15.2) 06/26/20 11:22 Hct 35.9 % (35.5-45.6) 06/26/20 11:22 MCV 86 fl (84-94) 06/26/20 11:22 MCH 29 pg (28-32) 06/26/20 11:22 MCHC 34 % (32-34) 06/26/20 11:22 RDW 14.1 % (13.2-15.2) 06/26/20 11:22 Plt Count 146 K/mm3 (140-440) 06/26/20 11:22 Lymph % (Auto) 20.9 % (13.4-35.0) 06/26/20 11:22 [place] % (Auto) 6.0 % (0.0-7.3) 06/26/20 11:22 Eos % (Auto) 0.3 % (0.0-4.3) 06/26/20 11:22 Baso % (Auto) 0.7 % (0.0-1.8) 06/26/20 11:22 Lymph # 1.0 K/mm3 (1.2-5.4) L 06/26/20 11:22 [place] # 0.3 K/mm3 (0.0-0.8) 06/26/20 11:22 Eos # 0.0 K/mm3 (0.0-0.4) 06/26/20 11:22 Baso # 0.0 K/mm3 (0.0-0.1) 06/26/20 11:22 Seg Neutrophils % 72.1 % (40.0-70.0) H 06/26/20 11:22 Seg Neutrophils # 3.3 K/mm3 (1.8-7.7) 06/26/20 11:22 Sodium 143 mmol/L (137-145) 06/30/20 05:28 Potassium 3.7 mmol/L (3.6-5.0) 06/30/20 05:28 Chloride 101.9 mmol/L (98-107) 06/30/20 05:28 Carbon Dioxide 27 mmol/L (22-30) 06/30/20 05:28 Anion Gap 18 mmol/L 06/30/20 05:28 BUN 23 mg/dL (9-20) H 06/30/20 05:28 Creatinine 2.3 mg/dL (0.8-1.3) H 06/30/20 05:28 Estimated GFR 37 ml/min 06/30/20 05:28 BUN/Creatinine Ratio 10 % 06/30/20 05:28 Glucose 140 mg/dL (75-100) H 06/30/20 05:28 POC Glucose 107 (70-105) H 06/30/20 08:11 Calcium 8.9 mg/dL (8.4-10.2) 06/30/20 05:28 Magnesium 2.10 mg/dL (1.7-2.3) 06/30/20 05:28 Total Bilirubin 0.50 mg/dL (0.1-1.2) 06/27/20 05:39 Direct Bilirubin < 0.2 mg/dL (0-0.2) 06/27/20 05:39 Indirect Bilirubin 0.3 mg/dL 06/27/20 05:39 AST 32 units/L (5-40) 06/27/20 05:39 ALT 54 units/L (7-56) 06/27/20 05:39 Alkaline Phosphatase 66 units/L (35-129) 06/27/20 05:39 Total Creatine Kinase 195 units/L (55-170) H 06/26/20 11:22 Troponin T 0.031 ng/mL (0.00-0.029) H D 06/28/20 07:14 NT-Pro-B Natriuret Pep 7493 pg/mL (0-450) H 06/26/20 11:22 Total Protein 6.5 g/dL (6.3-8.2) 06/27/20 05:39 Albumin 3.5 g/dL (3.9-5) L 06/27/20 05:39 Albumin/Globulin Ratio 1.2 % 06/27/20 05:39 Triglycerides 88 mg/dL (2-149) 06/26/20 11:22 Cholesterol 90 mg/dL (50-199) 06/26/20 11:22 LDL Cholesterol Direct 44 mg/dL (50-130) L 06/26/20 11:22 HDL Cholesterol 38 mg/dL (40-59) L 06/26/20 11:22 Cholesterol/HDL Ratio 2.36 % 06/26/20 11:22 - Diagnostic Impressions Diagnostic Impressions: Echocardiogram 06/26/20 14:07 Transthoracic Echocardiogram Indication: SOB BP: 143/103 HR: 89 Conclusions *The left ventricular chamber size is moderately dilated. *Moderate concentric left ventricular hypertrophy is observed. *Global left ventricular systolic function is severely decreased. *The estimated ejection fraction is 20-25%. *The left atrium is moderately dilated. *There is mild mitral regurgitation. *There is mild aortic regurgitation. *There is trace tricuspid regurgitation. Findings Left Ventricle: The left ventricular chamber size is moderately dilated. Moderate concentric left ventricular hypertrophy is observed. Global left ventricular systolic function is severely decreased. The estimated ejection fraction is 20-25%. Left Atrium: The left atrium is moderately dilated. Right Ventricle: The right ventricle is mildly dilated. Right Atrium: The right atrium is mild to moderately dilated. Aortic Valve: The aortic valve is trileaflet. There is mild aortic regurgitation. There is no evidence of aortic stenosis. Mitral Valve: The mitral valve leaflets are mildly thickened. There is mild mitral regurgitation. There is no evidence of mitral stenosis. Tricuspid Valve: There is trace tricuspid regurgitation. No pulmonary hypertension is noted. Pulmonic Valve: There is trace pulmonic regurgitation. Pericardium: There is no pericardial effusion. Aorta: There is no dilatation of the ascending aorta. There is no dilatation of the aortic root. Venous: The inferior vena cava appears normal in size. Measurements Chambers 2D Name Value Normal Range IVSd (2D) 1.72 cm (0.6 - 1.1) LVPWd (2D) 1.75 cm (0.6 - 1.1) LVIDd (2D) 4.69 cm (3.7 - 5.6) LVIDs (2D) 3.76 cm (2 - 3.8) LV FS (2D) 19.97 % - EF Teichholz (2D) 40.94 % - Ao root diameter (2D) 4.15 cm (2 - 3.7) Volumes/Mass Name Value Normal Range LA ESV SP 4CH (A/L) 110.45 ml - LA ESV SP 2CH (A/L) 92.93 ml - LA ESV BP (A/L) 103.76 ml - LA ESV BP (A/L) index 49.65 ml/m2 - LA ESV SP 4CH (MOD) 104.2 ml - LA ESV SP 2CH (MOD) 88.21 ml - LA ESV BP (MOD) 98 ml - LA ESV BP (MOD) index 46.89 ml/m2 - LV EDV SP 4CH (MOD) 210.4 ml - LV ESV SP 4CH (MOD) 143.88 ml - EF SP 4CH (MOD) 31.62 % - LV EDV SP 2CH (MOD) 221.79 ml - LV ESV SP 2CH (MOD) 132.07 ml - EF SP 2CH (MOD) 40.45 % - LV EDV BP 217.73 ml - LV ESV BP 141.28 ml - BP EF (MOD) 35.11 % - Diastolic/Systolic Function Name Value Normal Range MV E-wave Vmax 1.09 m/sec - MV deceleration time 133.48 msec - MV A-wave Vmax 0.39 m/sec - MV E:A ratio 2.8 ratio - Aortic Valve Name Value Normal Range AV Vmax 1.13 m/sec - AV VTI 18.21 cm - AV peak gradient 5.09 mmHg - AV mean gradient 2.83 mmHg - LVOT diameter 2.23 cm - LVOT Vmax 0.8 m/sec - LVOT VTI 12.25 cm - LVOT peak gradient 2.54 mmHg - LVOT mean gradient 1.39 mmHg - SV LVOT 47.92 ml - STEVE (continuity Vmax) 2.76 cm2 - STEVE (continuity VTI) 2.63 cm2 - AR PHT 948.89 msec - AR peak gradient 29.71 mmHg - Ascending Ao 3.88 cm - Mitral Valve Name Value Normal Range MV PHT 37.6 msec - MVA (PHT) 5.85 cm2 - Tricuspid Valve Name Value Normal Range IVC diameter 1.89 cm (1.2 - 2.3) Pulmonic Valve/Qp:Qs Name Value Normal Range PV Vmax 0.84 m/sec - PV VTI 16.01 cm - PV peak gradient 2.85 mmHg - PV mean gradient 1.5 mmHg - RVOT Vmax 0.66 m/sec - RVOT VTI 10.44 cm - RVOT peak gradient 1.74 mmHg - Hoskins/IV: Voiding Method Urinal IV Catheter Type [Left Hand] INT / Saline Lock Active Medications - Current Medications Current Medications: Generic Name Dose Route Start Last Admin Trade Name Freq PRN Reason Stop Dose Admin Aspirin 81 mg 06/29/20 10:00 07/04/20 09:08 Halfprin Ec PO 81 mg QDAY NUHA Administration Atorvastatin Calcium 40 mg 06/26/20 22:00 07/03/20 21:10 Lipitor PO 40 mg QHS NUHA Administration Doxazosin Mesylate 2 mg 06/28/20 22:00 07/03/20 21:10 Cardura PO 2 mg QHS NUHA Administration Fish Oil 2,000 mg 07/04/20 22:00 Fish Oil PO BID NUHA Furosemide 40 mg 06/28/20 12:00 07/04/20 09:09 Lasix PO 40 mg QDAY NUHA Administration Haloperidol 1 mg 07/04/20 22:00 Haldol PO BID NUHA Heparin Sodium (Porcine) 5,000 unit 06/26/20 22:00 07/04/20 09:09 Heparin SUB-Q 5,000 unit Q12HR NUHA Administration Isosorbide Dinitrate/Hydralazine 1 each 06/27/20 12:00 07/04/20 09:09 Bidil 20/37.5mg PO 1 each Q12HR NUHA Administration Lorazepam 1 mg 07/04/20 10:15 Ativan IM Q4H PRN Agitation Metoprolol Tartrate 50 mg 06/28/20 15:00 07/04/20 15:24 Metoprolol PO 50 mg Q8HR NUHA Administration Nifedipine 60 mg 06/28/20 13:00 07/04/20 09:09 Procardia Xl PO 60 mg QDAY NUHA Administration Nitroglycerin 0.4 mg 06/26/20 14:04 Nitrostat SL .Q5MIN PRN Chest Pain Olanzapine 2.5 mg 07/04/20 22:00 Zyprexa PO QHS NUHA Spironolactone 25 mg 06/28/20 13:00 07/04/20 09:09 Aldactone PO 25 mg QDAY NUHA Administration Ziprasidone 5 mg 07/04/20 10:15 07/04/20 10:35 Geodon IM 5 mg Q4H PRN Administration Agitation Nutrition/Malnutrition Assess - Dietary Evaluation Nutrition/Malnutrition Findings: Nutrition Notes Start: 06/27/20 10:31 Freq: Status: Active Protocol: Document 07/01/20 10:46 AT (Rec: 07/01/20 11:10 AT [id number]) Co-Sign 07/01/20 10:46 LM Nutrition Notes Need for Assessment generated from: chief medical officer Initial or Follow up Assessment Current Diagnosis Acute Kidney Injury, Hypertension,Heart Failure Current Diet Cardiac Labs/Tests BUN 23 Cr 2.3 BG 140 Pertinent Medications Lipitor Lasic Spironolactone Height 6 ft Weight 85.1 kg [place] Body Weight (kg) 80.90 BMI 25.4 Weight change and time frame Pt has lost 2.9% BW since admission (06/26/20). Weight Status Overweight Subjective/Other Information As per RN, pt is refusing most food, but will consume water and applesauce. Pt is confused and refused tray observation and was reticent to discuss nutritional status/hx. Was unable to obtain nutritional hx. Burn Absent Trauma Absent Current % PO Poor (25-49%) Minimum of two criteria No Interpretation of Weight Loss (non- 1-2% in 1 week severe) #1 Nutrition Diagnosis Inadequate energy intake Etiology confusion As Evidenced by Signs and Symptoms reported poor PO intakes, refusal of most foods, and 1-2 % weight loss in 5 days. Is patient on ventilator? No Is Patient Ambulatory and/or Out of Bed Yes REE-([place]. Jeor-ambulatory/OOB) [ 2280.200 [id number]] Additional Notes PRO needs: 68 - 85g (0.8 - 1 g /kg) Fluid Needs: 1,500 mL Nutrition Intervention Change Diet Order: Continue Current Add Supplement/Snack (indicate name/kcal Ensure Enlive daily /protein ) Provides kCal: 350 Provides Protein (gm) 20 Goal #1 Meet 75% of energy and protein needs. Follow-Up By: 07/05/20 Additional Comments F/U for PO and ONS intake.
[2020-07-04] MEDS: HALOPERIDOL 2 MG TAB PO SCH (21:36)
[2020-07-04] MEDS: OMEGA-3 FATTY ACIDS/FISH OIL 1 GRAM CAP PO SCH (21:37)
[2020-07-04] MEDS: DOXAZOSIN 1 MG TAB PO SCH (21:37)
[2020-07-05] MEDS: METOPROLOL TARTRATE 50 MG TAB PO SCH (06:17)
[2020-07-05] MEDS: ISOSORB DINIT/HYDRALAZINE 20-37.5MG TAB PO SCH ×2 (11:05→21:35)
[2020-07-05] MEDS: NIFEdipine XL 60 MG TAB PO SCH (11:06)
[2020-07-05] MEDS: FUROSEMIDE 40 MG TAB PO SCH (11:06)
[2020-07-05] MEDS: ASPIRIN EC 81 MG TAB PO SCH (11:06)
[2020-07-05] MEDS: OMEGA-3 FATTY ACIDS/FISH OIL 1 GRAM CAP PO SCH ×2 (11:06→21:35)
[2020-07-05] MEDS: SPIRONOLACTONE 25 MG TAB PO SCH (11:06)
[2020-07-05] MEDS: HEPARIN 5,000 UNIT/1 ML VIAL SUB-Q SCH ×2 (11:07→21:35)
[2020-07-05] MEDS: HALOPERIDOL 2 MG TAB PO SCH ×2 (11:38→21:35)
--- NOTE | 2020-07-05 11:42 | Progress Note ---
Assessment and Plan Assessment and plan: 49-year-old male with a history of hypertension but not on any home medications, tobacco and alcohol abuse and no other prior medical history presented to the emergency room complaints of Progressive shortness of breath for last 2 months that significantly worsened the night prior to presentation. Patient states that when he laid down he felt like he was going to . He has associated orthopnea. Patient states that he has not been able to sleep for the last 2 months secondary to the orthopnea. He denies any chest pain, nausea, vomiting, diarrhea, fever, cough, leg swelling. He states that he tested negative for COVID a week prior. He states he has not seen a primary care physician since 2010. In the ER patient blood pressure noted to be 204/148. He also noted to have elevated BNP, elevated troponin and elevated creatinine. He was given p.o. labetalol 200 mg one-time dose, chest x-ray in the ER showed cardiomegaly without any pulmonary edema. Patient now called for admission for further evaluation and management. 07/05. During this hospitalization patient had an echocardiogram that showed systolic heart failure with EF 20 to 25%. Cardiology was consulted. Patient also had runs of nonsustained V. tach and patient has been on metoprolol. His medications have been adjusted by cardiology. As per cardiology, patient will need a LifeVest prior to discharge. Patient does not have any insurance. He also had episodes of confusion and agitation and an MRI of the brain performed showed acute CVA. Neurology is currently following. Patient is currently on aspirin and statins. Psychiatry was consulted due to agitation and patient was started on Seroquel and as needed Geodon for now. As per psychiatry, patient does not need inpatient admission at this time. Currently, patient is able to ambulate without any problems. He has no complaints and he is asking for when he can be discharged. Cardiology consulted to help with a LifeVest placement. Blood pressure slightly elevated. Plan to adjust medications today. HIV test ordered and results are still pending. Problems (1) New onset of congestive heart failure Current Visit: Yes Status: Acute Plan to address problem: Systolic CHF: Strict I's/O, monitor urine output every shift, daily weight, afterload reduction, echocardiogram reveals ejection fraction of 25%. Cardiology team planning LifeVest placement. Needs cardiology follow-up at discharge (2) Noncompliance with medication regimen Current Visit: Yes Status: Acute Plan to address problem: Patient counseled regarding medication noncompliance. Patient knowledges understanding and agreement with care plan. Patient states that he will be compliant with his medication regimen in the future. Patient also reports that he will comply and follow-up with primary care physician on outpatient basis. (3) BECCA (acute kidney injury) Current Visit: Yes Status: Acute Plan to address problem: Strict I's/O, monitor urine output every shift, follow-up PCP within 1 week with repeat BMP. (4) Hypertensive urgency Current Visit: Yes Status: Acute Plan to address problem: Monitor blood pressure every shift, continue medical management. (5) Ventricular tachycardia, non-sustained Current Visit: Yes Status: Acute Plan to address problem: Pending life vest placement. Cardiology follow-up at discharge (6) Confusion Current Visit: Yes Status: Acute Plan to address problem: CT Head ordered, Rapid HIV ordered. (7) Encephalopathy Current Visit: Yes Status: Acute Plan to address problem: CT Head, Neuro checks, Neurology consulted for cerebral edema, MRI brain reviewed. Neurology consulted, Rapid HIV results pending. (8) DVT prophylaxis Current Visit: Yes Status: Acute Plan to address problem: SCD to bilateral lower extremities while in bed, patient is ambulatory. History Interval history: See assessment and plan Hospitalist Physical - Constitutional Vitals: Temp Pulse Resp BP Pulse Ox 99.2 F 87 20 157/103 96 07/05/20 08:21 07/05/20 11:06 07/05/20 08:21 07/05/20 08:21 07/05/20 08:21 General appearance: Present: no acute distress - EENT Eyes: Present: PERRL - Neck Neck: Present: supple, normal ROM - Respiratory Respiratory: bilateral: CTA - Cardiovascular Rhythm: regular Heart Sounds: Present: S1 & S2 - Extremities Extremities: No edema - Abdominal General gastrointestinal: soft, non-tender, non-distended, normal bowel sounds - Psychiatric Psychiatric: appropriate mood/affect - Neurologic Neurologic: CNII-XII intact HEART Score - HEART Score Troponin: Troponin T 0.031 ng/mL (0.00-0.029) H D 06/28/20 07:14 Results - Labs CBC & Chem 7: 06/26/20 11:22 06/30/20 05:28 Labs: Laboratory Last Values WBC 4.6 K/mm3 (4.5-11.0) 06/26/20 11:22 RBC 4.20 M/mm3 (3.65-5.03) 06/26/20 11:22 Hgb 12.2 gm/dl (11.8-15.2) 06/26/20 11:22 Hct 35.9 % (35.5-45.6) 06/26/20 11:22 MCV 86 fl (84-94) 06/26/20 11:22 MCH 29 pg (28-32) 06/26/20 11:22 MCHC 34 % (32-34) 06/26/20 11:22 RDW 14.1 % (13.2-15.2) 06/26/20 11:22 Plt Count 146 K/mm3 (140-440) 06/26/20 11:22 Lymph % (Auto) 20.9 % (13.4-35.0) 06/26/20 11:22 [place] % (Auto) 6.0 % (0.0-7.3) 06/26/20 11:22 Eos % (Auto) 0.3 % (0.0-4.3) 06/26/20 11:22 Baso % (Auto) 0.7 % (0.0-1.8) 06/26/20 11:22 Lymph # 1.0 K/mm3 (1.2-5.4) L 06/26/20 11:22 [place] # 0.3 K/mm3 (0.0-0.8) 06/26/20 11:22 Eos # 0.0 K/mm3 (0.0-0.4) 06/26/20 11:22 Baso # 0.0 K/mm3 (0.0-0.1) 06/26/20 11:22 Seg Neutrophils % 72.1 % (40.0-70.0) H 06/26/20 11:22 Seg Neutrophils # 3.3 K/mm3 (1.8-7.7) 06/26/20 11:22 Sodium 143 mmol/L (137-145) 06/30/20 05:28 Potassium 3.7 mmol/L (3.6-5.0) 06/30/20 05:28 Chloride 101.9 mmol/L (98-107) 06/30/20 05:28 Carbon Dioxide 27 mmol/L (22-30) 06/30/20 05:28 Anion Gap 18 mmol/L 06/30/20 05:28 BUN 23 mg/dL (9-20) H 06/30/20 05:28 Creatinine 2.3 mg/dL (0.8-1.3) H 06/30/20 05:28 Estimated GFR 37 ml/min 06/30/20 05:28 BUN/Creatinine Ratio 10 % 06/30/20 05:28 Glucose 140 mg/dL (75-100) H 06/30/20 05:28 POC Glucose 107 (70-105) H 06/30/20 08:11 Calcium 8.9 mg/dL (8.4-10.2) 06/30/20 05:28 Magnesium 2.10 mg/dL (1.7-2.3) 06/30/20 05:28 Total Bilirubin 0.50 mg/dL (0.1-1.2) 06/27/20 05:39 Direct Bilirubin < 0.2 mg/dL (0-0.2) 06/27/20 05:39 Indirect Bilirubin 0.3 mg/dL 06/27/20 05:39 AST 32 units/L (5-40) 06/27/20 05:39 ALT 54 units/L (7-56) 06/27/20 05:39 Alkaline Phosphatase 66 units/L (35-129) 06/27/20 05:39 Total Creatine Kinase 195 units/L (55-170) H 06/26/20 11:22 Troponin T 0.031 ng/mL (0.00-0.029) H D 06/28/20 07:14 NT-Pro-B Natriuret Pep 7493 pg/mL (0-450) H 06/26/20 11:22 Total Protein 6.5 g/dL (6.3-8.2) 06/27/20 05:39 Albumin 3.5 g/dL (3.9-5) L 06/27/20 05:39 Albumin/Globulin Ratio 1.2 % 06/27/20 05:39 Triglycerides 88 mg/dL (2-149) 06/26/20 11:22 Cholesterol 90 mg/dL (50-199) 06/26/20 11:22 LDL Cholesterol Direct 44 mg/dL (50-130) L 06/26/20 11:22 HDL Cholesterol 38 mg/dL (40-59) L 06/26/20 11:22 Cholesterol/HDL Ratio 2.36 % 06/26/20 11:22 - Diagnostic Impressions Diagnostic Impressions: Echocardiogram 06/26/20 14:07 Transthoracic Echocardiogram Indication: SOB BP: 143/103 HR: 89 Conclusions *The left ventricular chamber size is moderately dilated. *Moderate concentric left ventricular hypertrophy is observed. *Global left ventricular systolic function is severely decreased. *The estimated ejection fraction is 20-25%. *The left atrium is moderately dilated. *There is mild mitral regurgitation. *There is mild aortic regurgitation. *There is trace tricuspid regurgitation. Findings Left Ventricle: The left ventricular chamber size is moderately dilated. Moderate concentric left ventricular hypertrophy is observed. Global left ventricular systolic function is severely decreased. The estimated ejection fraction is 20-25%. Left Atrium: The left atrium is moderately dilated. Right Ventricle: The right ventricle is mildly dilated. Right Atrium: The right atrium is mild to moderately dilated. Aortic Valve: The aortic valve is trileaflet. There is mild aortic regurgitation. There is no evidence of aortic stenosis. Mitral Valve: The mitral valve leaflets are mildly thickened. There is mild mitral regurgitation. There is no evidence of mitral stenosis. Tricuspid Valve: There is trace tricuspid regurgitation. No pulmonary hypertension is noted. Pulmonic Valve: There is trace pulmonic regurgitation. Pericardium: There is no pericardial effusion. Aorta: There is no dilatation of the ascending aorta. There is no dilatation of the aortic root. Venous: The inferior vena cava appears normal in size. Measurements Chambers 2D Name Value Normal Range IVSd (2D) 1.72 cm (0.6 - 1.1) LVPWd (2D) 1.75 cm (0.6 - 1.1) LVIDd (2D) 4.69 cm (3.7 - 5.6) LVIDs (2D) 3.76 cm (2 - 3.8) LV FS (2D) 19.97 % - EF Teichholz (2D) 40.94 % - Ao root diameter (2D) 4.15 cm (2 - 3.7) Volumes/Mass Name Value Normal Range LA ESV SP 4CH (A/L) 110.45 ml - LA ESV SP 2CH (A/L) 92.93 ml - LA ESV BP (A/L) 103.76 ml - LA ESV BP (A/L) index 49.65 ml/m2 - LA ESV SP 4CH (MOD) 104.2 ml - LA ESV SP 2CH (MOD) 88.21 ml - LA ESV BP (MOD) 98 ml - LA ESV BP (MOD) index 46.89 ml/m2 - LV EDV SP 4CH (MOD) 210.4 ml - LV ESV SP 4CH (MOD) 143.88 ml - EF SP 4CH (MOD) 31.62 % - LV EDV SP 2CH (MOD) 221.79 ml - LV ESV SP 2CH (MOD) 132.07 ml - EF SP 2CH (MOD) 40.45 % - LV EDV BP 217.73 ml - LV ESV BP 141.28 ml - BP EF (MOD) 35.11 % - Diastolic/Systolic Function Name Value Normal Range MV E-wave Vmax 1.09 m/sec - MV deceleration time 133.48 msec - MV A-wave Vmax 0.39 m/sec - MV E:A ratio 2.8 ratio - Aortic Valve Name Value Normal Range AV Vmax 1.13 m/sec - AV VTI 18.21 cm - AV peak gradient 5.09 mmHg - AV mean gradient 2.83 mmHg - LVOT diameter 2.23 cm - LVOT Vmax 0.8 m/sec - LVOT VTI 12.25 cm - LVOT peak gradient 2.54 mmHg - LVOT mean gradient 1.39 mmHg - SV LVOT 47.92 ml - STEVE (continuity Vmax) 2.76 cm2 - STEVE (continuity VTI) 2.63 cm2 - AR PHT 948.89 msec - AR peak gradient 29.71 mmHg - Ascending Ao 3.88 cm - Mitral Valve Name Value Normal Range MV PHT 37.6 msec - MVA (PHT) 5.85 cm2 - Tricuspid Valve Name Value Normal Range IVC diameter 1.89 cm (1.2 - 2.3) Pulmonic Valve/Qp:Qs Name Value Normal Range PV Vmax 0.84 m/sec - PV VTI 16.01 cm - PV peak gradient 2.85 mmHg - PV mean gradient 1.5 mmHg - RVOT Vmax 0.66 m/sec - RVOT VTI 10.44 cm - RVOT peak gradient 1.74 mmHg - Hoskins/IV: Voiding Method Urinal IV Catheter Type [Left Hand] INT / Saline Lock Active Medications - Current Medications Current Medications: Generic Name Dose Route Start Last Admin Trade Name Freq PRN Reason Stop Dose Admin Aspirin 81 mg 06/29/20 10:00 07/05/20 11:06 Halfprin Ec PO 81 mg QDAY NUHA Administration Atorvastatin Calcium 40 mg 06/26/20 22:00 07/04/20 21:36 Lipitor PO 40 mg QHS NUHA Administration Doxazosin Mesylate 2 mg 06/28/20 22:00 07/04/20 21:37 Cardura PO 2 mg QHS NUHA Administration Fish Oil 2,000 mg 07/04/20 22:00 07/05/20 11:06 Fish Oil PO 2,000 mg BID NHUA Administration Furosemide 40 mg 06/28/20 12:00 07/05/20 11:06 Lasix PO 40 mg QDAY NUHA Administration Haloperidol 1 mg 07/04/20 22:00 07/05/20 11:38 Haldol PO 1 mg BID NUHA Administration Heparin Sodium (Porcine) 5,000 unit 06/26/20 22:00 07/05/20 11:07 Heparin SUB-Q 5,000 unit Q12HR NUHA Administration Isosorbide Dinitrate/Hydralazine 1 each 06/27/20 12:00 07/05/20 11:05 Bidil 20/37.5mg PO 1 each Q12HR NUHA Administration Lorazepam 1 mg 07/04/20 10:15 Ativan IM Q4H PRN Agitation Metoprolol Tartrate 50 mg 06/28/20 15:00 07/05/20 06:17 Metoprolol PO 50 mg Q8HR NUHA Administration Nifedipine 60 mg 06/28/20 13:00 07/05/20 11:06 Procardia Xl PO 60 mg QDAY NUHA Administration Nitroglycerin 0.4 mg 06/26/20 14:04 Nitrostat SL .Q5MIN PRN Chest Pain Olanzapine 2.5 mg 07/04/20 22:00 07/04/20 21:34 Zyprexa PO 2.5 mg QHS NUHA Administration Spironolactone 25 mg 06/28/20 13:00 07/05/20 11:06 Aldactone PO 25 mg QDAY NUHA Administration Ziprasidone 5 mg 07/04/20 10:15 07/04/20 10:35 Geodon IM 5 mg Q4H PRN Administration Agitation Nutrition/Malnutrition Assess - Dietary Evaluation Nutrition/Malnutrition Findings: Nutrition Notes Start: 06/27/20 10:31 Freq: Status: Active Protocol: Document 07/05/20 11:13 LP (Rec: 07/05/20 11:19 LP [id number]) Nutrition Notes Initial or Follow up Reassessment Current Diagnosis Acute Kidney Injury, Hypertension,Heart Failure Current Diet Cardiac, Ensure Enlive daily Labs/Tests Reviewed Pertinent Medications Lasix Fish oil Height 6 ft Weight 84.5 kg [place] Body Weight (kg) 80.90 BMI 25.2 Weight Status Overweight Subjective/Other Information Pt appetite fluctuates due to being in and out of confusion. Burn Absent Trauma Absent Current % PO Fair (50-74%) Minimum of two criteria No Interpretation of Weight Loss (non- 1-2% in 1 week severe) #1 Nutrition Diagnosis Inadequate energy intake Diagnosis Progress(for reassessment Continues documentation) Is patient on ventilator? No Is Patient Ambulatory and/or Out of Bed Yes REE-([facility]-ambulatory/OOB) [ 2272.400 [id number]] Additional Notes PRO needs: 68-85g (0.8-1 g/kg) Fluid Needs: 1,500 mL Nutrition Intervention Change Diet Order: Continue Add Supplement/Snack (indicate name/kcal Ensure Enlive daily /protein ) Provides kCal: 350 Provides Protein (gm) 20 Goal #1 Meet 75% of energy and protein needs. Anticipated Discharge Needs: Cardiac diet Follow-Up By: 07/08/20 Additional Comments Follow for intakes
--- NOTE | 2020-07-05 14:14 | Progress Note ---
Assessment and Plan Newly diagnosed cardiomyopathy with EF 20*25% Presumed to be nonischemic and related to hypertensive heart disease Uncontrolled htn NSVT H/o Medical non-compliance Renal insufficiency Encephalopathy Recommend: Change to Toprol XL and increase dose Add KRISTINE inhibitor or ARB once renal function is felt to be stable If feasible, arrange for life vest prior to discharge - I have discussed with case management Subjective Date of service: 07/05/20 Interval history: No acute events. Cardiology asked to see pt again to help with arranging life vest Objective Vital Signs Temp Pulse Resp BP Pulse Ox 07/05/20 11:06 87 07/05/20 11:05 87 07/05/20 08:21 99.2 F 71 20 157/103 96 07/05/20 06:17 91 H 134/85 07/05/20 03:32 97.9 F 65 16 153/110 97 07/05/20 02:59 63 07/04/20 23:36 69 07/04/20 23:08 98.1 F 68 16 137/81 97 07/04/20 21:38 74 151/105 07/04/20 21:37 74 151/105 07/04/20 21:36 74 151/105 07/04/20 21:33 76 07/04/20 19:13 98.1 F 74 151/105 98 07/04/20 16:43 96.2 F L 74 18 149/111 98 - Physical Examination General: No Apparent Distress HEENT: Positive: PERRL Neck: Positive: neck supple Cardiac: Positive: Reg Rate and Rhythm, Systolic Murmur Lungs: Positive: clear to auscultation Neuro: Positive: Grossly Intact Abdomen: Positive: Soft. Negative: Pulsations/Bruits Skin: Positive: Clear Extremities: Absent: edema
[2020-07-05] MEDS ORDERED: ISOSORB DINIT/HYDRALAZINE 20-37.5MG TAB PO ONE (15:00)
[2020-07-05] MEDS: DOXAZOSIN 1 MG TAB PO SCH (21:34)
[2020-07-05] MEDS ORDERED: ISOSORB DINIT/HYDRALAZINE 20-37.5MG TAB PO SCH (22:00)
--- NOTE | 2020-07-06 10:04 | Progress Note ---
Assessment and Plan Newly diagnosed cardiomyopathy with EF 20*25% Presumed to be nonischemic and related to hypertensive heart disease Uncontrolled htn NSVT H/o Medical non-compliance Renal insufficiency Encephalopathy Recommend: GDMT for dilated cardiomyopathy. Life vest placement prior to discharge. Subjective Date of service: 07/06/20 Interval history: Patient is resting in bed and appears comfortable. Has no cardiac complaints. No events on telemetry monitoring. Objective Vital Signs Temp Pulse Resp BP Pulse Ox 07/06/20 08:49 81 07/06/20 07:55 98.0 F 81 20 172/114 96 07/06/20 03:34 97.6 F 75 20 145/91 96 07/05/20 23:53 98.3 F 88 18 130/67 84 07/05/20 20:21 78 07/05/20 20:18 98 07/05/20 20:03 80 07/05/20 19:19 98.6 F 18 144/91 07/05/20 16:06 98.3 F 80 141/90 97 07/05/20 11:06 87 07/05/20 11:05 87 - Physical Examination General: No Apparent Distress HEENT: Positive: PERRL Neck: Positive: neck supple Cardiac: Positive: Reg Rate and Rhythm Lungs: Positive: Decreased Breath Sounds Neuro: Positive: Grossly Intact Extremities: Absent: edema
[2020-07-06] MEDS: NIFEdipine XL 60 MG TAB PO SCH (10:51)
[2020-07-06] MEDS: ISOSORB DINIT/HYDRALAZINE 20-37.5MG TAB PO SCH (10:51)
[2020-07-06] MEDS: ASPIRIN EC 81 MG TAB PO SCH (10:51)
[2020-07-06] MEDS: OMEGA-3 FATTY ACIDS/FISH OIL 1 GRAM CAP PO SCH (10:51)
[2020-07-06] MEDS: FUROSEMIDE 40 MG TAB PO SCH (10:51)
[2020-07-06] MEDS: SPIRONOLACTONE 25 MG TAB PO SCH (10:51)
[2020-07-06] MEDS: HEPARIN 5,000 UNIT/1 ML VIAL SUB-Q SCH (10:52)
[2020-07-06] MEDS ORDERED: METOPROLOL SUCCINATE XL 50 MG TAB PO SCH (11:00)
--- NOTE | 2020-07-06 12:16 | Discharge Summary ---
Providers - Providers Date of Admission: 06/28/20 14:11 Date of discharge: 07/06/20 Attending physician: MARYLIN ZARAGOZA 07/01/20 11:31 Consult to Physician [CONS] Routine Comment: Consulting Provider: SINAN MON Physician Instructions: Reason For Exam: Encephalopathy 07/03/20 12:07 Consult to Mental Health [CONS] Routine Reason For Exam: agitation/confusion 07/05/20 11:36 Consult to Physician [CONS] Routine Comment: Consulting Provider: BRITTANY ZARATE Physician Instructions: Reason For Exam: Systolic heart failure Primary care physician: [employer] Hospitalization Condition: Serious Hospital course: 49-year-old male with a history of hypertension but not on any home medications, tobacco and alcohol abuse and no other prior medical history presented to the emergency room complaints of Progressive shortness of breath for last 2 months that significantly worsened the night prior to presentation. Patient states that when he laid down he felt like he was going to . He has associated orthopnea. Patient states that he has not been able to sleep for the last 2 months secondary to the orthopnea. He denies any chest pain, nausea, vomiting, diarrhea, fever, cough, leg swelling. He states that he tested negative for COVID a week prior. He states he has not seen a primary care physician since 2010. In the ER patient blood pressure noted to be 204/148. He also noted to have elevated BNP, elevated troponin and elevated creatinine. He was given p.o. labetalol 200 mg one-time dose, chest x-ray in the ER showed cardiomegaly without any pulmonary edema. Patient now called for admission for further evaluation and management. 07/05. During this hospitalization patient had an echocardiogram that showed systolic heart failure with EF 20 to 25%. Cardiology was consulted. Patient also had runs of nonsustained V. tach and patient has been on metoprolol. His medications have been adjusted by cardiology. As per cardiology, patient will need a LifeVest prior to discharge. Patient does not have any insurance. He also had episodes of confusion and agitation and an MRI of the brain performed showed acute CVA. Neurology is currently following. Patient is currently on aspirin and statins. Psychiatry was consulted due to agitation and patient was started on Seroquel and as needed Geodon for now. As per psychiatry, patient does not need inpatient admission at this time. Currently, patient is able to ambulate without any problems. He has no complaints and he is asking for when he can be discharged. Cardiology consulted to help with a LifeVest placement. Blood pressure slightly elevated. Plan to adjust medications today. HIV test ordered and results are still pending. 07/06. A life vest has been arranged for him and he will have it today. He has been cleared from [facility] for dc. He no longer has agitations here. Disposition: DC-01 TO HOME OR SELFCARE - Discharge Diagnoses (1) Confusion Status: Acute (2) Elevated troponin Status: Acute (3) New onset of congestive heart failure Status: Acute (4) Ventricular tachycardia, non-sustained Status: Acute Core Measure Documentation - Palliative Care Palliative Care/ Comfort Measures: Not Applicable - Core Measures Any of the following diagnoses?: none Exam - Constitutional Vitals: Temp Pulse Resp BP Pulse Ox 98.0 F 81 20 172/114 96 07/06/20 07:55 07/06/20 08:49 07/06/20 07:55 07/06/20 07:55 07/06/20 07:55 General appearance: Present: no acute distress, well-nourished - EENT Eyes: Present: PERRL ENT: hearing intact, clear oral mucosa - Neck Neck: Present: supple, normal ROM - Respiratory Respiratory effort: normal Respiratory: bilateral: CTA - Cardiovascular Heart Sounds: Present: S1 & S2. Absent: rub, click - Extremities Extremities: pulses symmetrical, No edema Peripheral Pulses: within normal limits - Abdominal General gastrointestinal: Present: soft, non-tender, non-distended, normal bowel sounds Male genitourinary: Present: normal - Integumentary Integumentary: Present: clear, warm, dry - Musculoskeletal Musculoskeletal: gait normal, strength equal bilaterally - Psychiatric Psychiatric: appropriate mood/affect, intact judgment & insight - Neurologic Neurologic: CNII-XII intact, moves all extremities Plan Activity: no restrictions Diet: low fat, low cholesterol, low salt Additional Instructions: Continue medications as prescribed. Wear lifevest at all times. Follow up with fish and wildlife biologist in 1-2 weeks Follow up with: SONAM BARBER MD [Primary Care Provider] - 3-5 Days BRITTANY ZARATE MD [Staff Physician] - 7 Days Forms: Discharge Signature Page Prescriptions: Doxazosin [Cardura] 2 mg PO QHS #30 tablet AtorvaSTATin [Lipitor] 40 mg PO QHS #30 tab OLANzapine [ZyPREXA] 2.5 mg PO QHS #15 tablet Spironolactone [Aldactone] 25 mg PO QDAY #30 tablet Isosorb Dinit/Hydralazine [Bidil 20/37.5MG] 1 each PO BID #60 tablet [place]-3 Fatty Acids/Fish Oil [Fish Oil] 2,000 mg PO BID #60 capsule haloperidoL [Haldol] 1 mg PO BID #30 tablet Aspirin EC [Halfprin EC] 81 mg PO QDAY #60 tablet Furosemide [Lasix TAB] 40 mg PO QDAY #30 tablet Metoprolol Xl [Metoprolol SUCCINATE ER TAB] 50 mg PO QDAY #30 tablet NIFEdipine XL [Procardia Xl] 60 mg PO QDAY #30 tablet
[2020-07-06 16:26] VITALS: BP 144/105
[2020-07-07 09:19] LABS: HIV-1 Antibody Differentiation SEE SCANNED RESULT; HIV-2 Antibody Differentiation SEE SCANNED RESULT
== END 2020-07-06 20:51 | disposition home or self-care (01) | DRG 280 ==
LOC: ED 09:45 → 4A 14:13 → OBSVTOIN 06-28 14:11 → 4A 07-01 21:11
PROVIDERS: ADMIT Internal Medicine; ATTEND Internal Medicine
DX: I13.0 Hypertensive heart and chronic kidney disease with heart failure and stage 1 through stage 4 chronic kidney disease, or unspecified chronic kidney disease (principal); I21.A1 Myocardial infarction type 2; I50.21 Acute systolic (congestive) heart failure; G93.41 Metabolic encephalopathy; N17.9 Acute kidney failure, unspecified; I47.2 Ventricular tachycardia; I42.9 Cardiomyopathy, unspecified; I16.0 Hypertensive urgency; R79.89 Other specified abnormal findings of blood chemistry; F17.200 Nicotine dependence, unspecified, uncomplicated; N18.9 Chronic kidney disease, unspecified; Z82.49 Family history of ischemic heart disease and other diseases of the circulatory system; F10.20 Alcohol dependence, uncomplicated; Z91.14 Patient's other noncompliance with medication regimen; Y90.9 Presence of alcohol in blood, level not specified; Z79.82 Long term (current) use of aspirin; Z79.01 Long term (current) use of anticoagulants; Z91.19 Patient's noncompliance with other medical treatment and regimen; F31.9 Bipolar disorder, unspecified; R41.0 Disorientation, unspecified; I65.23 Occlusion and stenosis of bilateral carotid arteries
CPT/HCPCS: 36415; 70450; 70544; 70551; 71046; 76770; 80048; 80053; 80061; 80076; 82550; 82962; 83735; 83880; 84484; 85025; 86689; 93005; 93306; 93880; 95819; 96374; 99406; G0378; A9270-GY; J1644; J1940; J2060; J3486

== ENCOUNTER 2021-06-21 19:45 | Emergency (ER) | payer SELFPAY ==
[2021-06-21] MEDS ORDERED: LORazepam 2 MG/ML VIAL IV PRN (20:03)
[2021-06-21] MEDS ORDERED: chlordiazePOXIDE 25 MG CAP PO PRN ×2 (20:03)
[2021-06-21] MEDS ORDERED: LORazepam 2 MG TAB PO PRN (20:03)
[2021-06-21] MEDS ORDERED: NIFEdipine XL 60 MG TAB PO STA (20:04)
[2021-06-21] MEDS ORDERED: METOPROLOL SUCCINATE XL 50 MG TAB PO STA (20:04)
[2021-06-21] MEDS ORDERED: SPIRONOLACTONE 25 MG TAB PO STA (20:04)
[2021-06-21] MEDS ORDERED: levETIRAcetam 500 MG TAB PO ONE (20:05)
[2021-06-21] MEDS ORDERED: chlordiazePOXIDE 25 MG CAP PO ONE (20:05)
[2021-06-21] MEDS ORDERED: THIAMINE 100 MG TAB PO ONE (20:05)
[2021-06-21] MEDS ORDERED: MULTIVITAMINS ,THERAPEUTIC TAB PO ONE (20:05)
--- NOTE | 2021-06-21 20:08 | Event Note ---
Date: 06/21/21 The patient was evaluated in the emergency department for symptoms described in the history of present illness. He/she was evaluated in the context of the global COVID-19 pandemic, which necessitated consideration that the patient might be at risk for infection with the virus that causes COVID-19. Institutional protocols and algorithms that pertain to the evaluation of patients at risk for COVID-19 are in a state of rapid change based on information released by regulatory bodies including the CDC and federal and state organizations. These policies and algorithms were followed during the patient's care in the emergency department. Please note that these policies, procedures and recommendations changed on a rapid basis. Medical screening examination note: 50-year-old gentleman, with history of uncontrolled hypertension, noncompliance, tobacco and alcohol abuse, admitted to this hospital June 2020 for hypertensive urgency, congestive heart failure, nonsustained ventricular tachycardia, presents to the ER today with EMS with a complaint of possible seizure. The patient states he is on "a lot of medications", but does not recall the names of the medications. He states that he typically goes to [facility] for his medical care. He is alert to name, location, and month. He walks with a steady gait with a GCS of 15. EMS states that they were called for a complaint of seizure. They report the patient had normal Accu-Chek in the field, and had a blood pressure that was elevated. They report the patient was negative on their stroke scale evaluation and ambulated with essentially a steady gait. On my assessment, the patient is awake, alert, oriented, sober with a GCS of 15, with no midline cervical spine pain or tenderness. His old medical records are reviewed and appreciated. Obtain appropriate laboratory studies, start antihypertensive therapy, load empirically with Keppra orally, start multivitamin, Librium, thiamine orally, obtain noncontrast CT scan of the brain Reassess.
[2021-06-21 20:51] LABS: Basophils % (Auto) 0.6 % (0.0-1.8); Hematocrit 39.7 % (35.5-45.6); Hemoglobin 13.3 gm/dl (11.8-15.2); Lymphocytes # (Auto) 0.9 K/mm3 (1.2-5.4); Lymphocytes % (Auto) 13.1 % (13.4-35.0); Mean Corpuscular HGB Conc 34 % (32-34); Mean Corpuscular Volume 86 fl (84-94); Monocytes # (Auto) 0.5 K/mm3 (0.0-0.8); Monocytes % (Auto) 7.4 % (0.0-7.3); Platelet Count 182 K/mm3 (140-440)
[2021-06-21 21:10] LABS: Albumin 4.5 g/dL (3.9-5); Calcium 9.3 mg/dL (8.4-10.2)
--- NOTE | 2021-06-21 21:32 | Cat Scan Report ---
CT head/brain wo con INDICATION: Seizure. TECHNIQUE: All CT scans at this location are performed using CT dose reduction for ALARA by means of automated e xposure control. COMPARISON: Brain MRI on 07/02/2020 FINDINGS: There is no evidence of hemorrhage, hydrocephalus, brain edema, or mass effect/mass lesion. There is stable extensive confluent cerebral white matter hypoattenuation likely reflecting severe chronic sma ll vessel ischemic change. Multifocal lacunar infarcts in the cerebral white matter and in the right cerebellar hemisphere stable. The included paranasal sinuses and mastoid air cells are clear. The orb its appear unremarkable. IMPRESSION: 1. No acute intracranial abnormality. Signer Name: Suresh Batres MD Signed: 06/21/2021 9:27 PM Workstation Name: [id number]
--- NOTE | 2021-06-22 11:30 | Electrocardiograph Report ---
[facility] Test Date: 2021-06-21 Test Time: 21:04:13 Pat Name: SRAVANTHI CHADWICK Department: Room: Gender: M On Call: LACY : 1970 Requested By: ELMIRA FITCH Order Number: [id number] Reading MD: Sha Macdonald Measurements Intervals [place] Rate: 101 P: 68 MO: 184 QRS: -36 QRSD: 104 T: 76 QT: 384 QTc: 497 Interpretive Statements Sinus tachycardia Left atrial enlargement Left ventricular hypertrophy Inferior infarct, old Anterior infarct, old No previous ECG available for comparison Electronically Signed On 06-22-2021 11:30:12 EDT by Sha Macdonald
[2021-06-22 14:37] VITALS: BP 199/135
[2021-06-22] MEDS ORDERED: cloNIDine 0.2 MG TAB PO ONE (14:38)
--- NOTE | 2021-06-22 15:35 | Emergency Department Report ---
ED General Adult HPI - General Chief complaint: Seizure Stated complaint: SEIZURE Time Seen by Provider: 06/22/21 15:27 Source: patient, EMS Mode of arrival: Ambulatory Limitations: No Limitations - History of Present Illness Initial comments: Patient is 50 years old male with history of congestive heart failure, nonsustained ventricular tachycardia and hypertension. Patient presented to the ER via EMS from home for evaluation of possible seizure. Patient stated that he woke up from sleep and he found that he bit his tongue so he is assuming that he had seizure overnight. Patient has been in the ED department for approximately 19 hours now. No seizure activity observed. Patient denied any chest pain, shortness of breath, fever or chills. No neck pain. Severity scale (0 -10): 0 - Related Data Previous Rx's Medication Instructions Recorded Last Taken Type Aspirin EC [Halfprin EC] 81 mg PO QDAY #60 tablet 07/06/20 Unknown Rx AtorvaSTATin [Lipitor] 40 mg PO QHS #30 tab 07/06/20 Unknown Rx Doxazosin [Cardura] 2 mg PO QHS #30 tablet 07/06/20 Unknown Rx Furosemide [Lasix TAB] 40 mg PO QDAY #30 tablet 07/06/20 Unknown Rx Isosorb Dinit/Hydralazine [Bidil 1 each PO BID #60 tablet 07/06/20 Unknown Rx 20/37.5MG] Metoprolol Xl [Metoprolol 50 mg PO QDAY #30 tablet 07/06/20 Unknown Rx SUCCINATE ER TAB] NIFEdipine XL [Procardia Xl] 60 mg PO QDAY #30 tablet 07/06/20 Unknown Rx OLANzapine [ZyPREXA] 2.5 mg PO QHS #15 tablet 07/06/20 Unknown Rx [place]-3 Fatty Acids/Fish Oil [Fish 2,000 mg PO BID #60 capsule 07/06/20 Unknown Rx Oil] Spironolactone [Aldactone] 25 mg PO QDAY #30 tablet 07/06/20 Unknown Rx haloperidoL [Haldol] 1 mg PO BID #30 tablet 07/06/20 Unknown Rx Allergies Allergy/AdvReac Type Severity Reaction Status Date / Time No Known Allergies Allergy Unverified 06/26/20 09:55 ED Review of Systems ROS: Stated complaint: SEIZURE Other details as noted in HPI Comment: All other systems reviewed and negative Constitutional: denies: chills, fever Respiratory: denies: cough, shortness of breath, SOB with exertion Cardiovascular: denies: chest pain, palpitations Gastrointestinal: denies: abdominal pain, nausea, vomiting, diarrhea Musculoskeletal: denies: back pain Neurological: denies: headache, weakness, numbness, paresthesias, confusion, abnormal gait ED Past Medical Hx - Past Medical History Previous Medical History?: Yes Hx Hypertension: Yes - Surgical History Past Surgical History?: No - Social History Smoking Status: Never Smoker Substance Use Type: None - Medications Home Medications: Home Medications Medication Instructions Recorded Confirmed Last Taken Type Aspirin EC [Halfprin EC] 81 mg PO QDAY #60 tablet 07/06/20 Unknown Rx AtorvaSTATin [Lipitor] 40 mg PO QHS #30 tab 07/06/20 Unknown Rx Doxazosin [Cardura] 2 mg PO QHS #30 tablet 07/06/20 Unknown Rx Furosemide [Lasix TAB] 40 mg PO QDAY #30 tablet 07/06/20 Unknown Rx Isosorb Dinit/Hydralazine [Bidil 1 each PO BID #60 tablet 07/06/20 Unknown Rx 20/37.5MG] Metoprolol Xl [Metoprolol 50 mg PO QDAY #30 tablet 07/06/20 Unknown Rx SUCCINATE ER TAB] NIFEdipine XL [Procardia Xl] 60 mg PO QDAY #30 tablet 07/06/20 Unknown Rx OLANzapine [ZyPREXA] 2.5 mg PO QHS #15 tablet 07/06/20 Unknown Rx [place]-3 Fatty Acids/Fish Oil [Fish 2,000 mg PO BID #60 capsule 07/06/20 Unknown Rx Oil] Spironolactone [Aldactone] 25 mg PO QDAY #30 tablet 07/06/20 Unknown Rx haloperidoL [Haldol] 1 mg PO BID #30 tablet 07/06/20 Unknown Rx ED Physical Exam - General Limitations: No Limitations General appearance: alert, in no apparent distress - Head Head exam: Present: atraumatic, normocephalic, normal inspection - Eye Eye exam: Present: normal appearance, PERRL - ENT ENT exam: Present: mucous membranes moist, other (Abrasion to the tongue on the right side.) - Neck Neck exam: Present: normal inspection, full ROM. Absent: tenderness, meningismus - Respiratory Respiratory exam: Present: normal lung sounds bilaterally - Cardiovascular Cardiovascular Exam: Present: regular rate, normal rhythm, normal heart sounds - GI/Abdominal GI/Abdominal exam: Present: soft, normal bowel sounds. Absent: distended, tenderness, guarding, rebound, rigid, organomegaly, mass, bruit, pulsatile mass, hernia - Extremities Exam Extremities exam: Present: normal inspection, full ROM, normal capillary refill. Absent: tenderness, pedal edema, joint swelling, calf tenderness - Back Exam Back exam: Present: normal inspection, full ROM. Absent: CVA tenderness (R), CVA tenderness (L) - Neurological Exam Neurological exam: Present: alert, oriented X3, CN II-XII intact, normal gait, reflexes normal. Absent: motor sensory deficit - Psychiatric Psychiatric exam: Present: normal mood - Skin Skin exam: Present: warm, intact, normal color ED Course Vital Signs 06/21/21 06/21/21 06/21/21 20:51 21:05 21:33 Temperature 99.1 F 99.1 F Pulse Rate 104 H 104 H 104 H Respiratory 18 18 Rate Blood Pressure 240/177 240/177 Blood Pressure 240/177 [Left] O2 Sat by Pulse 95 95 Oximetry 06/21/21 06/22/21 06/22/21 21:34 02:06 09:23 Temperature 98.6 F Pulse Rate 104 H 90 84 Respiratory 18 17 Rate Blood Pressure 240/177 Blood Pressure 182/123 146/81 [Left] O2 Sat by Pulse 95 100 Oximetry 06/22/21 06/22/21 06/22/21 14:35 14:37 14:40 Temperature Pulse Rate 79 79 Respiratory 20 Rate Blood Pressure 199/135 199/135 Blood Pressure [Left] O2 Sat by Pulse Oximetry ED Medical Decision Making - Lab Data Result diagrams: 06/21/21 20:27 06/21/21 20:27 - EKG Data -: EKG Interpreted by [facility] EKG shows normal: sinus rhythm Rate: tachycardia - EKG Data Interpretation: no acute changes - Radiology Data Radiology results: report reviewed - Medical Decision Making Patient is 50 years old male with history of congestive heart failure, nonsustained ventricular tachycardia and hypertension. Patient presented to the ER via EMS from home for evaluation of possible seizure. Patient stated that he woke up from sleep and he found that he bit his tongue so he is assuming that he had seizure overnight. Patient has been in the ED department for approxima tely 19 hours now. No seizure activity observed. Patient denied any chest pain, shortness of breath, fever or chills. No neck pain. EKG showed no ST elevation or depression. Normal sinus rhythm. CT brain is negative for acute finding. Labs reviewed and is unremarkable. Patient has been observed in the ER for more than 20 hours with no seizure observed or any other cardiac arrhythmia. Patient given prescription for his infected time wound. patient advised to follow-up with his primary doctor in the next 2 to 3 days and to return to the ER if he develop any new symptoms. Critical care attestation.: If time is entered above; I have spent that time in minutes in the direct care of this critically ill patient, excluding procedure time. ED Disposition Clinical Impression: Wound infection, Seizure Disposition: HOME / SELF CARE / HOMELESS Is pt being admited?: No Condition: Stable Instructions: Seizure, Adult Referrals: PRIMARY CARE, [Primary Care Provider] - 3-5 Days
== END 2021-06-22 17:02 | disposition home or self-care (01) ==
LOC: ED 19:45
DX: R56.9 Unspecified convulsions (principal); L08.9 Local infection of the skin and subcutaneous tissue, unspecified; I10 Essential (primary) hypertension; Z79.82 Long term (current) use of aspirin; Z79.899 Other long term (current) drug therapy
CPT/HCPCS: 36415; 70450; 80053; 80320; 82550; 83735; 85025; 93005; 99284; G0480